=== PATIENT | male | born 1940 | race Caucasian/White ===

== ENCOUNTER → 2018-04-05 09:28 | Outpatient (CLI) | payer MEDICARE, SELFPAY ==
[2018-03-24 16:57] VITALS: TEMP 36.3
== END ==
PROVIDERS: Family Provider Family Medicine; PCP Family Medicine; Visit Provider Family Medicine
DX: R91.8 Other nonspecific abnormal finding of lung field (principal); Z53.9 Procedure and treatment not carried out, unspecified reason

== ENCOUNTER → 2018-04-12 12:33 | Outpatient (CLI) | payer MEDICARE, SELFPAY ==
[2018-03-24 16:57] VITALS: TEMP 36.3
--- NOTE | 2018-04-12 | DI.ECHO.S_ITS ---
[facility] +---------+ : : [address] : : : : [id number] : : : : Phone: [phone]+ Echocardiogram Report + + :Name: CAITLYN FARAH Study Date: 04/12/2018 Height: 72 in : :[facility] Weight: 175 lb: : Gender: Male BSA: 2.0 m2 : :: 1940 Age: 77 yrs BP: 90/62 mmHg: :Reason For Study: Aortic valve stenosis : :Ordering Physician: Dr. Simms : :[place] Performed By: Faye Hill : :Referring: Haven Mar : + + Interpretation Summary The left ventricle is normal in size. The ejection fraction is estimated to be 65-70%. The right ventricle is grossly normal size. The right ventricular systolic function is normal. The aortic valve is moderately calcified. Leaflet mobility is moderate to severely reduced. The peak aortic velocity is 3.7 m/sec. The aortic valve mean gradient is 25 mmHg. The peak aortic velocity on the previous exam was 3.2 m/sec. Severity ratio is 0.28. The calculated aortic valve area is 1.0 cm2. There is moderate to severe aortic stenosis. Compared to the prior echo study, there has been an increase in the severity of aortic stenosis. Procedure: A two-dimensional transthoracic echocardiogram with color flow and Doppler was performed. The study quality was technically adequate. Comparison is made with the echocardiogram of 12-30-17. The heart rate ranged between 89-92 bpm during the study. The patient had frequent PVCs during the exam. Left Ventricle: The left ventricle is normal in size. There is normal left ventricular wall thickness. There is no thrombus. The ejection fraction is estimated to be 65-70%. There has been no significant change since the previous study. There are no focal wall motion abnormalities. Assessment of diastolic parameters indicates a relaxation abnormality of the left ventricle, consistent with normal filling pressures. Right Ventricle: The right ventricle is grossly normal size. The right ventricular systolic function is normal. Atria: The left atrium is mildly dilated. The left atrium has remained unchanged in size since the prior echo exam. The right atrium grossly appears normal in size. A prominent eustachian valve is noted. The interatrial septum is intact with no evidence for an atrial septal defect. Mitral Valve: There is mild mitral annular calcification. No significant mitral valve stenosis. There is trace mitral regurgitation. Aortic Valve: The aortic valve is moderately calcified. The aortic valve is not well visualized. Leaflet mobility is moderate to severely reduced. The calculated aortic valve area is 1.0 cm2. The peak aortic velocity is 3.7 m/sec. The peak aortic velocity on the previous exam was 3.2 m/sec. The aortic valve mean gradient is 25 mmHg. Severity ratio is 0.28. There is moderate to severe aortic stenosis. Compared to the prior echo study, there has been an increase in the severity of aortic stenosis. There is trace aortic regurgitation. Tricuspid Valve: The tricuspid valve leaflets are thin and pliable. There is trace tricuspid regurgitation. The right ventricular systolic pressure is estimated at 25 mmHg assuming a right atrial pressure of 3 mm Hg. Pulmonic Valve: The pulmonic valve is not well seen, but is grossly normal. There is trace pulmonic regurgitation. Great Vessels: The aortic root is normal size. There is aortic root sclerosis/calcification. The ascending aorta is at the upper limits of normal in size. The IVC is of normal diameter and collapses greater than 50% with a sniff. This suggests a low right atrial pressure of 3 mm Hg. Pericardium/ Pleura There is no pericardial effusion. There is no pleural effusion. MMode/2D Measurements & Calculations LVIDd: 3.9 cm LVOT diam: 2.2 cm LVIDs: 2.8 cm Ao root diam: 3.5 cm FS: 27.9 % Aortic Jxn: 2.4 cm IVSd: 0.81 cm asc Aorta Diam: 3.6 cm LVPWd: 0.75 cm Ao Arch Diam (Prox Trans): 2.6 cm LV tyler. diameter/BSA (cm/m^2): 1.9 LV sys. diameter/BSA (cm/m^2): 1.4 LA dimension: 3.4 cm RA long axis: 5.6 cm LA A2 area: 22.9 cm2 RA area: 20.3 cm2 LA A4 area: 21.6 cm2 RA vol: 62.8 ml LA length (vol): 5.6 cm RA : 31.2 ml/m2 LA vol: 75.2 ml IVC diam: 1.0 cm LA vol index: 37.4 ml/m2 RVDd major: 4.8 cm RVD1 (basal): 4.1 cm RVD2 (mid): 3.0 cm Doppler Measurements & Calculations Ao V2 max: 374.4 cm/sec LVOT Max Rahul: 98.9 cm/sec Ao V2 mean: 250.8 cm/sec LV V1 max P.9 mmHg Ao max P.1 mmHg LV V1 VTI: 21.8 cm Ao mean P.1 mmHg SIVA(I,D): 1.0 cm2 Ao V2 VTI: 76.5 cm SIVA(V,D): 0.97 cm2 sev ratio: 0.28 SIVA indexed to BSA (cm^2/m^2): 0.52 MV E max rahul: 60.8 cm/sec TR max rahul: 234.6 cm/sec MV A max rahul: 103.7 cm/sec TR max P.0 mmHg MV E/A: 0.59 PA V2 max: 114.9 cm/sec Med Peak E' Rahul: 7.7 cm/sec PA V2 mean: 84.4 cm/sec E/E' med: 7.9 PA mean P.1 mmHg Lat Peak E' Rahul: 8.1 cm/sec PA Accel Time: 0.17 sec E/E' lat: 7.5 E/e' average: 7.7 MV dec time: 0.35 sec MV P1/2t: 103.2 msec MV P1/2t max rahul: 61.7 cm/sec MVA(P1/2t): 2.1 cm2 Reading Physician:PM
== END ==
PROVIDERS: Family Provider Family Medicine; PCP Family Medicine; Visit Provider Family Medicine
DX: I35.0 Nonrheumatic aortic (valve) stenosis (principal)
CPT/HCPCS: 93306

== ENCOUNTER → 2018-04-15 08:17 | Outpatient (CLI) | payer MEDICARE, SELFPAY ==
[2018-04-15 10:13] LABS: Cortisol AM (Before 10AM) 11.9 ug/dL (4.46-22.7)
== END ==
PROVIDERS: PCP Family Medicine; Visit Provider Internal Medicine Cardiovascular Disease
DX: I95.89 Other hypotension (principal)
CPT/HCPCS: 36415; 82533

== ENCOUNTER → 2018-05-03 10:06 | Outpatient (CLI) | payer MEDICARE, SELFPAY ==
[2018-05-03 11:13] LABS: Add Manual Diff / Slide Review NO; Basophils Percent Auto 1.1 % (0-2); Hematocrit 39.4 % (41-53); Hemoglobin 13.6 g/dL (13.5-17.5); Lymphocytes Percent Auto 26.3 % (25-40); Mean Corpuscular HGB Conc 34.4 % (30-36); Mean Corpuscular Hemoglobin 34.6 PG (26-34); Mean Corpuscular Volume 100.5 fL (80-100); Monocytes Percent Auto 13.7 % (3-14); Neutrophils Absolute Auto 3800 /uL (3000-5900); Neutrophils Percent Auto 56.9 % (50-75); Platelet Count 332 X10^3/uL (150-400); Red Blood Cell Count 3.92 X10^6/uL (4.5-5.9); Red Cell Distribution Width 15.4 % (11.6-14.8); White Blood Cell Count 6.7 X10^3/uL (4.5-11.0)
[2018-05-03 12:17] LABS: Alanine Aminotransferase 27 IU/L (21-72); Albumin Globulin Ratio 1.3 (1.0-2.8); Alkaline Phosphatase 172 U/L (38-126); Aspartate Aminotransferase 28 IU/L (17-59); Bilirubin Total 0.9 mg/dL (0.2-1.3); Blood Urea Nitrogen 9 mg/dL (9-20); Calcium 9.4 mg/dL (8.4-10.2); Carbon Dioxide 27 mmol/L (22-32); Chloride 98 mmol/L (98-107); Estimated Glomerular Filt Rate > 60.0 mL/min (>60); Globulin 3.2 g/dL (1.7-4.1); Glucose 115 mg/dL (80-110); HEMOLYSIS < 15 (0-50); Lactate Dehydrogenase 373 U/L (313-618); Sodium 138 mmol/L (137-145); Total Protein 7.2 g/dL (6.3-8.2)
[2018-05-03 12:18] LABS: Potassium 4.4 mmol/L (3.4-5.1)
== END ==
PROVIDERS: PCP Family Medicine; Visit Provider Internal Medicine Hematology & Oncology
DX: Z01.818 Encounter for other preprocedural examination (principal)
CPT/HCPCS: 36415; 80053; 83615; 85025

== ENCOUNTER → 2018-05-04 14:23 | Outpatient (CLI) | payer MEDICARE, SELFPAY ==
--- NOTE | 2018-05-04 14:28 | DI.CT.S_ITS ---
PROCEDURE: CT CHEST ABD PEL W CON INDICATIONS: staging for small cell lung cancer TECHNIQUE: After the administration of oral and intravenous contrast, 5 mm thick sections acquired from the lung apices to the symphysis. 5 mm coronal and sagittal reformats were performed, with additional 7 mm coronal MIP reformats through the lungs. For radiation dose reduction, the following was used: automated exposure control, adjustment of mA and/or kV according to patient size. COMPARISON: [facility], CT, CT BIOPSY LUNG LT, 04/05/2018, 10:56. [facility], CR, CHEST 1 VIEW, 11/06/2016, 14:06. [facility], CR, CHEST 1 VIEW, 05/13/2017, 20:49. [facility], CR, CHEST 1 VIEW, 05/17/2017, 10:06. [facility], CR, XR CHEST 1V, 03/24/2018, 17:20. [facility], CT, ANGIO AORTA ILIOFEM AND EXT, 10/23/2017, 13:50. FINDINGS: Image quality: Excellent. CHEST: Lungs and pleura: The lobulated mass within the medial left lower lobe is redemonstrated similar in size to the CT dated 04/05/18. No other pulmonary nodules are visualized. No acute airspace opacities. No pleural effusion or pneumothorax. Mediastinum: Heart size is normal. No pericardial effusion. No mediastinal or hilar adenopathy by size criteria. Thoracic aorta and central pulmonary arteries are normal in size. Scattered atheromatous calcifications are present within the aortic arch. Esophagus is normal in caliber. No hiatal hernia. Chest wall: No axillary or supraclavicular adenopathy by size criteria. Thyroid gland is unremarkable. ABDOMEN: Solid organs: Liver is normal in size and enhancement. Gallbladder is surgically absent. Pneumobilia is redemonstrated, unchanged from the study dated 10/23/17. The tail of the pancreas enhances normally. The head of the pancreas is nonvisualized and may be surgically absent. Spleen is normal in size and enhancement. No adrenal nodules. There is cortical thinning of the bilateral kidneys. No hydronephrosis. Multifocal cortical scarring is also present suggesting prior infection or infarct. Peritoneum and bowel: Patient is status post gastric antrectomy. Bowel loops demonstrate normal wall thickness and caliber. No free fluid or air. Nodes and vessels: There is a left-sided retroperitoneal lymph node which measures 8 mm in diameter (series 2, image 70). No other retroperitoneal or mesenteric adenopathy by size criteria. Aorta and inferior vena cava are normal in size. Dense atheromatous calcifications are present throughout the abdominal aorta, iliac and common femoral arteries. Miscellaneous: No ventral hernias. PELVIS: Genitourinary: Bladder wall thickness is normal. Miscellaneous: No inguinal adenopathy. There are small bilateral fat-containing inguinal hernias. Bones: No suspicious bony lesions. There are multiple chronic appearing wedge compression deformities within the thoracolumbar spine. IMPRESSION: 1. Lobulated left lower lobe pulmonary mass consistent with the given diagnosis of lung cancer. No new pulmonary metastasis or mediastinal or hilar adenopathy. 2. Solitary, borderline enlarged retroperitoneal lymph node. Although this may represent a alban metastasis, given the absence of other enlarged lymph nodes, inflammatory or infectious etiologies are favored. No other findings to suggest distant metastasis. 3. Findings most consistent with prior Whipple procedure including pneumobilia which is unchanged. Dictated by: Amara Lindo M.D. on 05/04/2018 at 15:57 Approved by: Amara Lindo M.D. on 05/04/2018 at 16:14
--- NOTE | 2018-05-04 14:28 | DI.MRI.S_ITS ---
PROCEDURE: MR HEAD/BRAIN WO/W CON INDICATIONS: LUNG CANCER TECHNIQUE: Noncontrast axial T1 spin echo, axial T2 fast spin echo, sagittal and axial FLAIR, coronal T2 fast spin echo, axial gradient echo, axial diffusion and ADC through the brain. After the administration of contrast, axial and coronal 3D VIBE or T1 spin echo with fat saturation through the brain. COMPARISON: None. FINDINGS: Image quality: Excellent. CSF Spaces: Basal cisterns are patent. No extra-axial fluid collections. Ventricles are normal in size and shape. Brain: No midline shift. No intracranial bleeds or masses. No abnormal intracranial enhancement. The brainstem appears normal. Diffusion-weighted images demonstrate no acute ischemic insults. No chronic ischemic insults. Normal intravascular flow voids are present. Skull and face: Calvarial marrow is normal in signal. Orbits appear normal. Sinuses: Sinuses and mastoids appear clear. IMPRESSION: No sign of metastatic disease. Normal for age. Dictated by: Broderick Porras M.D. on 05/04/2018 at 17:02 Approved by: Broderick Porras M.D. on 05/04/2018 at 17:03
== END ==
PROVIDERS: Family Provider Family Medicine; PCP Family Medicine; Visit Provider Internal Medicine Hematology & Oncology
DX: C34.32 Malignant neoplasm of lower lobe, left bronchus or lung (principal); Z87.891 Personal history of nicotine dependence
CPT/HCPCS: 70553; 71260; 74177; A9579; Q9967

== ENCOUNTER → 2018-05-05 12:47 | Outpatient (CLI) | payer MEDICARE, SELFPAY ==
--- NOTE | 2018-05-05 17:04 | DIET.PN ---
Met w/pt and for consultation on nutrition concerns w/cancer treatment Pt recently dx w/lung cancer that may have metastasized; awaiting test results. Has a consult for pending radiation tx tomorrow. Thinks he will also have chemotherapy. When asked pt states wt is stable; disagrees to which pt responds, it's only gone down a little because my mouth hurt USUAL PO INTAKE: 2 meals w/dinner being main meal; small breakfast; eats a lot of fruit midday. Snacks in ghazala, usually ice cream. Reports intake decreased recently r/t oral yeast infection X couple month. DX: lung Ca HX: Aortic stenosis w/high B/P MEDS INCLUDE: Centrum silver, fish oil, B12, calcium, vit D WT: 167# BMI: 22 UBW: 174# WT CHANGE: 7 # loss X 1mo for 4% change ASSESSMENT: appears very concerned; pt appears to minimize problems/symptoms. Current PO intake appears well balanced though less than usual w/resulting w/loss INTERVENTION: Provided education on potential side effects of cancer treatment and strategies for dealing with, including N/V, dry mouth, difficulty swallowing, diminished appetite, wt loss. Stressed importance of monitoring wt and aiming to maintain. No f/u planned at this time but pt/ may call w/further questions
== END ==
PROVIDERS: Family Provider Family Medicine; PCP Family Medicine; Visit Provider Internal Medicine Hematology & Oncology
DX: C34.90 Malignant neoplasm of unspecified part of unspecified bronchus or lung (principal)
CPT/HCPCS: 97802

== ENCOUNTER → 2018-05-17 10:23 | Outpatient (CLI) | payer MEDICARE, SELFPAY ==
--- NOTE | 2018-05-17 | DI.RAD.S_ITS ---
PROCEDURE: FL GUIDED PICC PLACEMENT INDICATIONS: 77 year-old male with lung cancer, and PICC placement. COMPARISON: None. FINDINGS: PICC was placed by the intravenous therapy team from the left side. Fluoroscopic spot film demonstrates tip of PICC in the upper superior vena cava. IMPRESSION: Tip of PICC lies within the upper superior vena cava. Dictated by: Fred Coon M.D. on 05/17/2018 at 12:01 Approved by: Fred Coon M.D. on 05/17/2018 at 12:01
== END ==
PROVIDERS: Family Provider Family Medicine; PCP Family Medicine; Visit Provider Internal Medicine Hematology & Oncology
DX: C34.90 Malignant neoplasm of unspecified part of unspecified bronchus or lung (principal)
CPT/HCPCS: 36569; 77001

== ENCOUNTER → 2018-05-27 14:30 | Oncology outpatient (ONC) | payer MEDICARE, SELFPAY ==
[2018-04-28 09:43] VITALS: BP 136/86; PULSE 81; RESP 16; TEMP 36.7; O2SAT 98
--- NOTE | 2018-04-28 13:25 | ONC.CONS ---
History of Present Illness - Data of Consult Primary Care Provider: Mendez Cuevas MD - Consult Narrative Narrative: Andrew Alexander is a 77 year old male HEMATOLOGY/ONCOLOGY CONSULTATION NOTE DATE OF SERVICE: APRIL 28, 2018 PATIENT NAME: Andrew Alexander DATE OF : 1940 PCP: Mendez Cuevas MD IDENTIFICATION: Mr. Alexander is a 77-year-old gentleman who is seen in consultation at the request of Dr. Cuevas for left lower lobe lung mass with CT-guided biopsy on April 05, 2018 showing small cell carcinoma the lung. HISTORY OF PRESENT ILLNESS: He presents to clinic today accompanied by his , Lizzette. He was born and raised in [place] , retiring from work at the [employer]. Former smoker from about age 19 until his late 50s, averaging about a pack per day. No recent alcohol consumption but previously consumed about 1 beer per day on average. Heavier some years in the past. He was recently seen at [facility] ED for shortness of breath and a chest x-ray was obtained on March showing a 4 cm left lower lobe lung mass. On April 05, [address]-guided biopsy of the left lower lung mass which showed a 4 cm mass in the left lower lobe with no additional pulmonary nodules or adenopathy reported. Biopsy ([id number]) shows: High-grade neuroendocrine (small cell) carcinoma. Immunohistochemistry studies showed the tumor to be positive for cytokeratin STEVENSON, cytokeratin 7, TTF 1 and CD 56 with rare positive cells for P 40. Negative for cytokeratin 20, Napsin-a, chromogranin, synaptophysin, CK 5/6, PSA and ERG. He currently denies any chest pain or significant discomfort, productive cough or hemoptysis. Breathing is stable and similar to previous months. He does note some lower back pain he has had for the past 3 or 4 months but typically gets prompt relief with mechanical readjustment from his chiropractor. He otherwise denies any new or progressive bone pain. No headaches or new neurologic symptoms, fever, chills, nausea or abdominal pain. CC: Zachariah Chase MD Home Medications and Allergies Home Medications Medication Instructions Recorded Confirmed Type Calcium Carbonate/Vitamin D 1 tab PO QDAY #0 07/25/11 04/28/18 History (#CALCIUM W/VITAMIN D 600 MG-125 IU) MULTIVITAMIN (#MULTIPLE VITAMINS) 1 cap PO QDAYP #0 09/12/11 04/28/18 History cyanocobalamin (vitamin B-12) 3,000 mcg PO QAM #0 08/26/16 04/28/18 History aspirin 325 mg PO QDAY #0 07/29/17 04/28/18 History atorvastatin 60 mg PO HS #45 tab 10/29/17 04/28/18 Rx pantoprazole [Protonix] 40 mg PO QDAY #90 mg 11/20/17 04/28/18 Rx metoprolol succinate [Toprol XL] 25 mg PO QDAY 04/28/18 04/28/18 History Allergies Allergy/AdvReac Type Severity Reaction Status Date / Time morphine [MORPHINE] Allergy Severe HALLUCINATI Verified 03/24/18 17:02 ONS thimerosal [THIMEROSAL] Allergy Mild PANCHAL Verified 03/24/18 17:02 ketamine [KETAMINE] AdvReac Unknown BECAME Verified 03/24/18 17:02 ANGRY; YELLING AT ER STAFF AND DOESN'T REMEMBER. Medical History - Medical, Surgical, Family History Surgical History: Surgical History (Last Reviewed 03/30/18 @ 08:24 by Estella Harper) Status post cholecystectomy Status post laminectomy Status post radical cystoprostatectomy - Social History Smoking Status: Former smoker Review of Systems All systems PM: reviewed and no additional remarkable complaints except as stated Constitutional: fair state of general health, normal activity level, normal sleep, no weight loss Eyes: no change in vision, no double vision, no pain, no swelling Ears, nose, mouth, throat: no headaches, no vertigo, no lightheadedness, no epistaxis, no dental problems Cardiovascular: heart murmur, no chest pain, no palpitations, no dyspnea on exertion, no orthopnea, no cyanosis Respiratory: no pain with respirations, no shortness of breath, no wheezing, no cough, no hemoptysis Gastrointestinal: no change in appetite, no dysphagia, no indigestion, no abdominal pain, no nausea, no vomiting, no hematemesis, no jaundice Genitourinary: no urgency, no frequency, no dysuria, no hematuria Musculoskeletal: no pain, no swelling, no redness Integumentary: no rash, no bleeding or bruising Neurological: no seizures, no incoordination, no memory loss, no speech disturbance, no motor difficulty Psychiatric: anxiety Exam Vital signs: Last Vital Signs Temp 98.0 F 04/28/18 09:43 Pulse 81 04/28/18 09:43 Resp 16 04/28/18 09:43 BP 136/86 H 04/28/18 09:43 Pulse Ox 98 04/28/18 09:43 - Constitutional positive no acute distress, positive cooperative - Routine HEENT Exam Head: Present: normocephalic, atraumatic. Absent: cushingoid faces Eye: Present: EOMI, PERRL. Absent: conjunctival icterus, periorbital ecchymosis, periorbital swelling, nystagmus ENT: Present: mucous membranes moist, oropharynx clear - Routine Neck Exam Present: supple. Absent: JVD, lymphadenopathy - Routine Chest/Breast/Axilla Exam Axillae: Absent: lymphadenopathy - Routine Respiratory Exam Present: Clear to auscultation bilaterally. Absent: decreased breath sounds, accessory muscle use, rales, wheezes - Routine Cardiovascular Exam Present: RRR, S1, S2, murmur. Absent: S3 Comments: 3/6 systolic murmur along the sternal border. - Routine Abdominal Exam Present: soft, normoactive bowel sounds. Absent: tenderness, distended, guarding, organomegaly - Routine Extremities Exam Present: clubbing. Absent: cyanosis, edema - Routine Skin Exam Present: intact. Absent: jaundice, rash, ecchymosis - Routine Neurological Exam Present: alert, oriented X3, CN II-XII intact, sensory deficit, moving all extremities. Absent: motor deficit Slight decreased sensation over the toes on the right foot. Gait is steady without overt ataxia. Able to walk on toes and heels reasonably well. Some difficulty with tandem gait. - Routine Psychiatric Exam Present: normal affect, normal thought process, cooperative, anxious Results - Imaging Additional studies: Procedures Contrast myelogram (10/10/13) Insertion of intraocular lens prosthesis at time of cataract extraction, one-stage (01/03/15) Intraoperative cholangiogram (07/29/11) Laparoscopic cholecystectomy (07/29/11) Phacoemulsification and aspiration of cataract (01/03/15) Transfusion of Nonautologous Red Blood Cells into Peripheral Vein, Percutaneous Approach (05/22/17) Assessment and Plan - Time Spent with Patient IMPRESSION: 1. SMALL CELL CARCINOMA OF THE LUNG, DIAGNOSED WITH CT-GUIDED BIOPSY OF LEFT LOWER LOBE MASS ON APRIL 05, 2018. 2. HISTORY OF TOBACCO USE. 3. AORTIC STENOSIS. 4. PERIPHERAL VASCULAR DISEASE. 5. HISTORY OF PROSTATE CANCER STATUS POST PROSTATECTOMY [address] PALOMO. DOES NOT RECALL RECEIVING HORMONE THERAPY OR RADIATION TREATMENT. 6. PANCREATITIS, STATUS POST PARTIAL PANCREATECTOMY AT [facility] IN 2011. I REVIEWED THE DIAGNOSIS, NATURAL HISTORY, PROGNOSIS AND TREATMENT FOR SMALL CELL CARCINOMA OF THE LUNG WITH HIM AND HIS AT TODAY'S VISIT. HE WILL NEED TO COMPLETE STAGING STUDIES AND FURTHER WORKUP BEFORE WE CAN FINALIZE TREATMENT PLAN. IF NO ADDITIONAL SITES OF DISEASE INVOLVEMENT ARE IDENTIFIED THEN I WOULD RECOMMEND TREATMENT WITH CONCURRENT CHEMORADIATION THERAPY UTILIZING CISPLATIN AND ETOPOSIDE. WE DID DISCUSS THE HIGH RISK FOR OCCULT METASTATIC DISEASE AND WILL PLAN TO SEE HIM BACK NEXT WEEK TO REVIEW RESULTS OF INITIAL STAGING STUDIES. FURTHER IMAGING INCLUDING BONE SCAN IF INDICATED. NO NEW SYMPTOMS CURRENTLY. REVIEWED OTHER ISSUES, QUESTIONS AND CLINICAL CONCERNS. PLAN: 1. CBC, CMP, LDH 2. CT CHEST/ABDOMEN/PELVIS 3. MRI HEAD WITH CONTRAST 4. REFERRAL TO RADIATION ONCOLOGY TO CONSIDER CONCURRENT CHEMORADIATION THERAPY PENDING STAGING. 5. REFERRALS TO [facility] [employer] [facility] TODAY. 6. PRINTED INFORMATION ABOUT SMALL CELL LUNG CANCER TREATMENT PROVIDED TO HIM AND HIS . 7. RETURN APPOINTMENT WITH ME IN 1 WEEK. 8. ANTICIPATE TREATMENT WITH CISPLATIN AND ETOPOSIDE PENDING RESULTS OF STAGING STUDIES. DICTATED BY ZACHARIAH CHASE MD MEDICAL ONCOLOGY AND HEMATOLOGY
--- NOTE | 2018-04-28 13:37 | P.CONONC_ITS ---
History of Present Illness - Data of Consult Primary Care Provider: Mendez Cuevas MD - Consult Narrative Narrative: Andrew Alexander is a 77 year old male HEMATOLOGY/ONCOLOGY CONSULTATION NOTE DATE OF SERVICE: APRIL 28, 2018 PATIENT NAME: Andrew Alexander DATE OF : 1940 PCP: Mendez Cuevas MD IDENTIFICATION: Mr. Alexander is a 77-year-old gentleman who is seen in consultation at the request of Dr. Cuevas for left lower lobe lung mass with CT- guided biopsy on April 05, 2018 showing small cell carcinoma the lung. HISTORY OF PRESENT ILLNESS: He presents to clinic today accompanied by his , Lizzette. He was born and raised in [place] , retiring from work at the [employer]. Former smoker from about age 19 until his late 50s, averaging about a pack per day. No recent alcohol consumption but previously consumed about 1 beer per day on average. Heavier some years in the past. He was recently seen at [facility] ED for shortness of breath and a chest x-ray was obtained on March showing a 4 cm left lower lobe lung mass. On April 05, [address]-guided biopsy of the left lower lung mass which showed a 4 cm mass in the left lower lobe with no additional pulmonary nodules or adenopathy reported. Biopsy ([id number]) shows: High-grade neuroendocrine (small cell) carcinoma. Immunohistochemistry studies showed the tumor to be positive for cytokeratin STEVENSON, cytokeratin 7, TTF 1 and CD 56 with rare positive cells for P 40. Negative for cytokeratin 20, Napsin-a, chromogranin, synaptophysin, CK 5/ 6, PSA and ERG. He currently denies any chest pain or significant discomfort, productive cough or hemoptysis. Breathing is stable and similar to previous months. He does note some lower back pain he has had for the past 3 or 4 months but typically gets prompt relief with mechanical readjustment from his chiropractor. He otherwise denies any new or progressive bone pain. No headaches or new neurologic symptoms, fever, chills, nausea or abdominal pain. CC: Zachariah Chase MD Home Medications and Allergies Home Medications Medication Instructions Recorded Confirmed Type Calcium Carbonate/Vitamin D 1 tab PO QDAY #0 07/25/11 04/28/18 History (#CALCIUM W/VITAMIN D 600 MG-125 IU) MULTIVITAMIN (#MULTIPLE VITAMINS) 1 cap PO QDAYP #0 09/12/11 04/28/18 History cyanocobalamin (vitamin B-12) 3,000 mcg PO QAM #0 08/26/16 04/28/18 History aspirin 325 mg PO QDAY #0 07/29/17 04/28/18 History atorvastatin 60 mg PO HS #45 tab 10/29/17 04/28/18 Rx pantoprazole [Protonix] 40 mg PO QDAY #90 mg 11/20/17 04/28/18 Rx metoprolol succinate [Toprol XL] 25 mg PO QDAY 04/28/18 04/28/18 History Allergies Allergy/AdvReac Type Severity Reaction Status Date / Time morphine [MORPHINE] Allergy Severe HALLUCINATI Verified 03/24/18 17:02 ONS thimerosal [THIMEROSAL] Allergy Mild PANCHAL Verified 03/24/18 17:02 ketamine [KETAMINE] AdvReac Unknown BECAME Verified 03/24/18 17:02 ANGRY; YELLING AT ER STAFF AND DOESN'T REMEMBER. Medical History - Medical, Surgical, Family History Surgical History: Surgical History (Last Reviewed 03/30/18 @ 08:24 by Estella Harper) Status post cholecystectomy Status post laminectomy Status post radical cystoprostatectomy - Social History Smoking Status: Former smoker Review of Systems All systems PM: reviewed and no additional remarkable complaints except as stated Constitutional: fair state of general health, normal activity level, normal sleep, no weight loss Eyes: no change in vision, no double vision, no pain, no swelling Ears, nose, mouth, throat: no headaches, no vertigo, no lightheadedness, no epistaxis, no dental problems Cardiovascular: heart murmur, no chest pain, no palpitations, no dyspnea on exertion, no orthopnea, no cyanosis Respiratory: no pain with respirations, no shortness of breath, no wheezing, no cough, no hemoptysis Gastrointestinal: no change in appetite, no dysphagia, no indigestion, no abdominal pain, no nausea, no vomiting, no hematemesis, no jaundice Genitourinary: no urgency, no frequency, no dysuria, no hematuria Musculoskeletal: no pain, no swelling, no redness Integumentary: no rash, no bleeding or bruising Neurological: no seizures, no incoordination, no memory loss, no speech disturbance, no motor difficulty Psychiatric: anxiety Exam Vital signs: Last Vital Signs Temp 98.0 F 04/28/18 09:43 Pulse 81 04/28/18 09:43 Resp 16 04/28/18 09:43 BP 136/86 H 04/28/18 09:43 Pulse Ox 98 04/28/18 09:43 - Constitutional positive no acute distress, positive cooperative - Routine HEENT Exam Head: Present: normocephalic, atraumatic. Absent: cushingoid faces Eye: Present: EOMI, PERRL. Absent: conjunctival icterus, periorbital ecchymosis , periorbital swelling, nystagmus ENT: Present: mucous membranes moist, oropharynx clear - Routine Neck Exam Present: supple. Absent: JVD, lymphadenopathy - Routine Chest/Breast/Axilla Exam Axillae: Absent: lymphadenopathy - Routine Respiratory Exam Present: Clear to auscultation bilaterally. Absent: decreased breath sounds, accessory muscle use, rales, wheezes - Routine Cardiovascular Exam Present: RRR, S1, S2, murmur. Absent: S3 Comments: 3/6 systolic murmur along the sternal border. - Routine Abdominal Exam Present: soft, normoactive bowel sounds. Absent: tenderness, distended, guarding, organomegaly - Routine Extremities Exam Present: clubbing. Absent: cyanosis, edema - Routine Skin Exam Present: intact. Absent: jaundice, rash, ecchymosis - Routine Neurological Exam Present: alert, oriented X3, CN II-XII intact, sensory deficit, moving all extremities. Absent: motor deficit Slight decreased sensation over the toes on the right foot. Gait is steady without overt ataxia. Able to walk on toes and heels reasonably well. Some difficulty with tandem gait. - Routine Psychiatric Exam Present: normal affect, normal thought process, cooperative, anxious Results - Imaging Additional studies: Procedures Contrast myelogram (10/10/13) Insertion of intraocular lens prosthesis at time of cataract extraction, one- stage (01/03/15) Intraoperative cholangiogram (07/29/11) Laparoscopic cholecystectomy (07/29/11) Phacoemulsification and aspiration of cataract (01/03/15) Transfusion of Nonautologous Red Blood Cells into Peripheral Vein, Percutaneous Approach (05/22/17) Assessment and Plan - Time Spent with Patient IMPRESSION: 1. SMALL CELL CARCINOMA OF THE LUNG, DIAGNOSED WITH CT-GUIDED BIOPSY OF LEFT LOWER LOBE MASS ON APRIL 05, 2018. 2. HISTORY OF TOBACCO USE. 3. AORTIC STENOSIS. 4. PERIPHERAL VASCULAR DISEASE. 5. HISTORY OF PROSTATE CANCER STATUS POST PROSTATECTOMY [address] PALOMO. DOES NOT RECALL RECEIVING HORMONE THERAPY OR RADIATION TREATMENT. 6. PANCREATITIS, STATUS POST PARTIAL PANCREATECTOMY AT [facility] IN 2011. I REVIEWED THE DIAGNOSIS, NATURAL HISTORY, PROGNOSIS AND TREATMENT FOR SMALL CELL CARCINOMA OF THE LUNG WITH HIM AND HIS AT TODAY'S VISIT. HE WILL NEED TO COMPLETE STAGING STUDIES AND FURTHER WORKUP BEFORE WE CAN FINALIZE TREATMENT PLAN. IF NO ADDITIONAL SITES OF DISEASE INVOLVEMENT ARE IDENTIFIED THEN I WOULD RECOMMEND TREATMENT WITH CONCURRENT CHEMORADIATION THERAPY UTILIZING CISPLATIN AND ETOPOSIDE. WE DID DISCUSS THE HIGH RISK FOR OCCULT METASTATIC DISEASE AND WILL PLAN TO SEE HIM BACK NEXT WEEK TO REVIEW RESULTS OF INITIAL STAGING STUDIES. FURTHER IMAGING INCLUDING BONE SCAN IF INDICATED. NO NEW SYMPTOMS CURRENTLY. REVIEWED OTHER ISSUES, QUESTIONS AND CLINICAL CONCERNS. PLAN: 1. CBC, CMP, LDH 2. CT CHEST/ABDOMEN/PELVIS 3. MRI HEAD WITH CONTRAST 4. REFERRAL TO RADIATION ONCOLOGY TO CONSIDER CONCURRENT CHEMORADIATION THERAPY PENDING STAGING. 5. REFERRALS TO [facility] AND [facility]OR ERP TODAY. 6. PRINTED INFORMATION ABOUT SMALL CELL LUNG CANCER TREATMENT PROVIDED TO HIM AND HIS . 7. RETURN APPOINTMENT WITH ME IN 1 WEEK. 8. ANTICIPATE TREATMENT WITH CISPLATIN AND ETOPOSIDE PENDING RESULTS OF STAGING STUDIES. DICTATED BY ZACHARIAH CHASE MD MEDICAL ONCOLOGY AND HEMATOLOGY
--- NOTE | 2018-05-12 12:32 | ONC.PN ---
Assessment and Plan - Time Spent with Patient IMPRESSION: 1. Small cell carcinoma of the lung, limited stage disease. CT-guided biopsy of left lower lobe mass on April 05, 2018. Staging with CT chest/abdomen/pelvis shows a single 0.8 cm retroperitoneal lymph node but no definite findings to suggest metastatic disease. MR brain shows no evidence of [employer] metastases. Consultation with Dr. Wilburn May 06, 2018. 2. History of tobacco use. 3. Aortic stenosis. 4. Peripheral vascular disease. 5. History of prostate cancer, status post prostatectomy [address] Perkins. 6. Urinary incontinence. 7. Pancreatitis, status post partial pancreatectomy at [facility] in 2011. I reviewed the findings, lab and CT and MRI imaging results with her nystatin his in detail today. Reviewed note and recommendations from Dr. Wilburn. We anticipate treatment for what appears to be limited stage small cell carcinoma of the lung. I advised him of the potential risk of occult metastatic disease. We reviewed side effects and potential toxicities for treatment with cisplatin and etoposide which include but are not limited to fatigue, nausea, vomiting, myelosuppression with potential neutropenia and risk for sepsis or , anemia potential need for transfusions, thrombocytopenia and risk for hemorrhage or stroke, thromboembolic complications including DVT, pulmonary embolus or stroke, phlebitis, neuropathy which may be permanent, nephropathy or renal failure from cisplatin, hypokalemia, hypomagnesemia, risk for seizure, fatigue, malaise, anorexia, weight loss, rash, headaches, mood changes, 2nd malignancies and other potential concerns. He voices understanding, accepts the side effects and risks discussed and consents to treatment as outlined. I have also reviewed treatment plan with our oncology pharmacist and triage nurse. Total time spent today 40 min with more than 50% of time spent in counseling and coordination of care. PLAN: 1. Orders for cycle 1 of cisplatin 80 milligram/meter sq IV day 1 and etoposide 100 milligram/meter sq IV days 1, 2, 3. Cycles 21 days x4 with concurrent radiation therapy planned. 2. Anticipate start of treatment on May 17, 2018. 3. Anticipate started radiation therapy with cycle 2 or as per recommendations from Dr. Wilburn. 4. Standard premedication, antiemetics and other supportive care reviewed. 5. Mouth rinses and neutropenic precautions. 6. Filgrastim support if indicated. Transfusion of RBCs or platelets if indicated. 7. CBC, CMP, magnesium, LDH on day 1 of each cycle. 8. CBC weekly, CMP and magnesium repeated on day 8 each cycle. 9. Return appointment with me day 8 of cycle 1 and on day 1 of each cycle of cisplatin/etoposide. 10. Prescriptions for prochlorperazine and ondansetron. Currently taking pantoprazole. 11. Follow-up with radiation oncology for simulation and treatment planning. DICTATED BY AGATA CHASE MD MEDICAL ONCOLOGY AND HEMATOLOGY PN -Subjective Interval history: IDENTIFICATION: Mr. Alexander is a 77-year-old gentleman with small cell carcinoma of the lung diagnosed with CT-guided biopsy of left lower lobe mass on April 05, 2018. INTERVAL HISTORY: He returns today with his to review treatment plan. Since his consultation visit he has had lab work, CT of the chest/abdomen/pelvis and MR of the brain. He was also seen in consultation by Dr. Wilburn in Radiation Oncology on May 06, 2018. He has also reviewed the imaging with the patient and has recommended proceeding with radiation therapy as discussed. He returns today to review staging studies and treatment plan. No new symptoms to report. He denies significant chest discomfort, productive cough or hemoptysis. No headaches or new neurologic symptoms. No nausea or vomiting. PRIOR NOTE: HISTORY OF PRESENT ILLNESS: He presents to clinic today accompanied by his , Lizzette. He was born and raised in [place] , retiring from work at the [employer]. Former smoker from about age 19 until his late 50s, averaging about a pack per day. No recent alcohol consumption but previously consumed about 1 beer per day on average. Heavier some years in the past. He was recently seen at [facility] ED for shortness of breath and a chest x-ray was obtained on March showing a 4 cm left lower lobe lung mass. On April 05, [address]-guided biopsy of the left lower lung mass which showed a 4 cm mass in the left lower lobe with no additional pulmonary nodules or adenopathy reported. Biopsy ([id number]) shows: High-grade neuroendocrine (small cell) carcinoma. Immunohistochemistry studies showed the tumor to be positive for cytokeratin STEVENSON, cytokeratin 7, TTF 1 and CD 56 with rare positive cells for P 40. Negative for cytokeratin 20, Napsin-a, chromogranin, synaptophysin, CK 5/6, PSA and ERG. He currently denies any chest pain or significant discomfort, productive cough or hemoptysis. Breathing is stable and similar to previous months. He does note some lower back pain he has had for the past 3 or 4 months but typically gets prompt relief with mechanical readjustment from his chiropractor. He otherwise denies any new or progressive bone pain. No headaches or new neurologic symptoms, fever, chills, nausea or abdominal pain. Results - Imaging Additional studies: Procedures Contrast myelogram (10/10/13) Insertion of intraocular lens prosthesis at time of cataract extraction, one-stage (01/03/15) Intraoperative cholangiogram (07/29/11) Laparoscopic cholecystectomy (07/29/11) Phacoemulsification and aspiration of cataract (01/03/15) Transfusion of Nonautologous Red Blood Cells into Peripheral Vein, Percutaneous Approach (05/22/17) Home Medications and Allergies Home Medications Medication Instructions Recorded Confirmed Type Calcium Carbonate/Vitamin D 1 tab PO QDAY #0 07/25/11 04/28/18 History (#CALCIUM W/VITAMIN D 600 MG-125 IU) multivitamin 1 tab PO DAILY #0 09/12/11 04/28/18 History cyanocobalamin (vitamin B-12) 3,000 mcg PO QAM #0 08/26/16 04/28/18 History aspirin 325 mg PO QDAY #0 07/29/17 04/28/18 History atorvastatin 60 mg PO HS #45 tab 10/29/17 04/28/18 Rx pantoprazole [Protonix] 40 mg PO QDAY #90 mg 11/20/17 04/28/18 Rx metoprolol succinate [Toprol XL] 25 mg PO QDAY 04/28/18 04/28/18 History clotrimazole 1 applic TOPICAL BID 05/12/18 05/12/18 History nystatin 200,000 unit BUCCAL QID 05/12/18 05/12/18 History Allergies Allergy/AdvReac Type Severity Reaction Status Date / Time morphine [MORPHINE] Allergy Severe HALLUCINATI Verified 03/24/18 17:02 ONS thimerosal [THIMEROSAL] Allergy Mild PANCHAL Verified 03/24/18 17:02 ketamine [KETAMINE] AdvReac Unknown BECAME Verified 03/24/18 17:02 ANGRY; YELLING AT ER STAFF AND DOESN'T REMEMBER. Exam Vital signs: Last Vital Signs Temp 98.0 F 04/28/18 09:43 Pulse 81 04/28/18 09:43 Resp 16 04/28/18 09:43 BP 136/86 H 04/28/18 09:43 Pulse Ox 98 04/28/18 09:43 - Constitutional positive no acute distress, positive cooperative - Routine HEENT Exam Head: Present: normocephalic, atraumatic Eye: Present: EOMI, PERRL - Routine Neurological Exam Present: alert, normal speech - Routine Psychiatric Exam Present: normal affect, normal thought process, cooperative
[2018-05-12 12:37] VITALS: BP 116/73; PULSE 90; RESP 16; TEMP 36.4; O2SAT 96
--- NOTE | 2018-05-12 12:39 | P.PNONC_ITS ---
Assessment and Plan - Time Spent with Patient IMPRESSION: 1. Small cell carcinoma of the lung, limited stage disease. CT-guided biopsy of left lower lobe mass on April 05, 2018. Staging with CT chest/abdomen/pelvis shows a single 0.8 cm retroperitoneal lymph node but no definite findings to suggest metastatic disease. MR brain shows no evidence of [employer] metastases. Consultation with Dr. Wilburn May 06, 2018. 2. History of tobacco use. 3. Aortic stenosis. 4. Peripheral vascular disease. 5. History of prostate cancer, status post prostatectomy [address] Perkins. 6. Urinary incontinence. 7. Pancreatitis, status post partial pancreatectomy at [facility] in 2011. I reviewed the findings, lab and CT and MRI imaging results with her nystatin his in detail today. Reviewed note and recommendations from Dr. Wilburn. We anticipate treatment for what appears to be limited stage small cell carcinoma of the lung. I advised him of the potential risk of occult metastatic disease. We reviewed side effects and potential toxicities for treatment with cisplatin and etoposide which include but are not limited to fatigue, nausea, vomiting, myelosuppression with potential neutropenia and risk for sepsis or , anemia potential need for transfusions, thrombocytopenia and risk for hemorrhage or stroke, thromboembolic complications including DVT, pulmonary embolus or stroke, phlebitis, neuropathy which may be permanent, nephropathy or renal failure from cisplatin, hypokalemia, hypomagnesemia, risk for seizure, fatigue, malaise, anorexia, weight loss, rash, headaches, mood changes, 2nd malignancies and other potential concerns. He voices understanding , accepts the side effects and risks discussed and consents to treatment as outlined. I have also reviewed treatment plan with our oncology pharmacist and triage nurse. Total time spent today 40 min with more than 50% of time spent in counseling and coordination of care. PLAN: 1. Orders for cycle 1 of cisplatin 80 milligram/meter sq IV day 1 and etoposide 100 milligram/meter sq IV days 1, 2, 3. Cycles 21 days x4 with concurrent radiation therapy planned. 2. Anticipate start of treatment on May 17, 2018. 3. Anticipate started radiation therapy with cycle 2 or as per recommendations from Dr. Wilburn. 4. Standard premedication, antiemetics and other supportive care reviewed. 5. Mouth rinses and neutropenic precautions. 6. Filgrastim support if indicated. Transfusion of RBCs or platelets if indicated. 7. CBC, CMP, magnesium, LDH on day 1 of each cycle. 8. CBC weekly, CMP and magnesium repeated on day 8 each cycle. 9. Return appointment with me day 8 of cycle 1 and on day 1 of each cycle of cisplatin/etoposide. 10. Prescriptions for prochlorperazine and ondansetron. Currently taking pantoprazole. 11. Follow-up with radiation oncology for simulation and treatment planning. DICTATED BY AGATA CHASE MD MEDICAL ONCOLOGY AND HEMATOLOGY PN -Subjective Interval history: IDENTIFICATION: Mr. Alexander is a 77-year-old gentleman with small cell carcinoma of the lung diagnosed with CT-guided biopsy of left lower lobe mass on April 05, 2018. INTERVAL HISTORY: He returns today with his to review treatment plan. Since his consultation visit he has had lab work, CT of the chest/abdomen/ pelvis and MR of the brain. He was also seen in consultation by Dr. Wilburn in Radiation Oncology on May 06, 2018. He has also reviewed the imaging with the patient and has recommended proceeding with radiation therapy as discussed. He returns today to review staging studies and treatment plan. No new symptoms to report. He denies significant chest discomfort, productive cough or hemoptysis. No headaches or new neurologic symptoms. No nausea or vomiting. PRIOR NOTE: HISTORY OF PRESENT ILLNESS: He presents to clinic today accompanied by his , Lizzette. He was born and raised in [place] , retiring from work at the [employer]. Former smoker from about age 19 until his late 50s, averaging about a pack per day. No recent alcohol consumption but previously consumed about 1 beer per day on average. Heavier some years in the past. He was recently seen at [facility] ED for shortness of breath and a chest x-ray was obtained on March showing a 4 cm left lower lobe lung mass. On April 05, [address]-guided biopsy of the left lower lung mass which showed a 4 cm mass in the left lower lobe with no additional pulmonary nodules or adenopathy reported. Biopsy ([id number]) shows: High-grade neuroendocrine (small cell) carcinoma. Immunohistochemistry studies showed the tumor to be positive for cytokeratin STEVENSON, cytokeratin 7, TTF 1 and CD 56 with rare positive cells for P 40. Negative for cytokeratin 20, Napsin-a, chromogranin, synaptophysin, CK 5/ 6, PSA and ERG. He currently denies any chest pain or significant discomfort, productive cough or hemoptysis. Breathing is stable and similar to previous months. He does note some lower back pain he has had for the past 3 or 4 months but typically gets prompt relief with mechanical readjustment from his chiropractor. He otherwise denies any new or progressive bone pain. No headaches or new neurologic symptoms, fever, chills, nausea or abdominal pain. Results - Imaging Additional studies: Procedures Contrast myelogram (10/10/13) Insertion of intraocular lens prosthesis at time of cataract extraction, one- stage (01/03/15) Intraoperative cholangiogram (07/29/11) Laparoscopic cholecystectomy (07/29/11) Phacoemulsification and aspiration of cataract (01/03/15) Transfusion of Nonautologous Red Blood Cells into Peripheral Vein, Percutaneous Approach (05/22/17) Home Medications and Allergies Home Medications Medication Instructions Recorded Confirmed Type Calcium Carbonate/Vitamin D 1 tab PO QDAY #0 07/25/11 04/28/18 History (#CALCIUM W/VITAMIN D 600 MG-125 IU) multivitamin 1 tab PO DAILY #0 09/12/11 04/28/18 History cyanocobalamin (vitamin B-12) 3,000 mcg PO QAM #0 08/26/16 04/28/18 History aspirin 325 mg PO QDAY #0 07/29/17 04/28/18 History atorvastatin 60 mg PO HS #45 tab 10/29/17 04/28/18 Rx pantoprazole [Protonix] 40 mg PO QDAY #90 mg 11/20/17 04/28/18 Rx metoprolol succinate [Toprol XL] 25 mg PO QDAY 04/28/18 04/28/18 History clotrimazole 1 applic TOPICAL BID 05/12/18 05/12/18 History nystatin 200,000 unit BUCCAL QID 05/12/18 05/12/18 History Allergies Allergy/AdvReac Type Severity Reaction Status Date / Time morphine [MORPHINE] Allergy Severe HALLUCINATI Verified 03/24/18 17:02 ONS thimerosal [THIMEROSAL] Allergy Mild PANCHAL Verified 03/24/18 17:02 ketamine [KETAMINE] AdvReac Unknown BECAME Verified 03/24/18 17:02 ANGRY; YELLING AT ER STAFF AND DOESN'T REMEMBER. Exam Vital signs: Last Vital Signs Temp 98.0 F 04/28/18 09:43 Pulse 81 04/28/18 09:43 Resp 16 04/28/18 09:43 BP 136/86 H 04/28/18 09:43 Pulse Ox 98 04/28/18 09:43 - Constitutional positive no acute distress, positive cooperative - Routine HEENT Exam Head: Present: normocephalic, atraumatic Eye: Present: EOMI, PERRL - Routine Neurological Exam Present: alert, normal speech - Routine Psychiatric Exam Present: normal affect, normal thought process, cooperative
--- NOTE | 2018-05-14 08:48 | P.CHEMO_ITS ---
Chemotherapy Counseling - History of present illness History of present illness: Andrew is a 77-year-old male who presents today for chemotherapy teaching. 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 CT-guided biopsy of left lower lobe mass on April 05, 2018. Staging CT of chest abdomen pelvis demonstrates a single 0.8 cm retroperitoneal lymph node but no definite findings to suggest metastatic disease. Brain MR demonstrated no evidence of DIAGNOSTIC TECH metastases. Plan is to initiate treatment in the form of cisplatin and etoposide with concurrent radiation therapy. Cisplatin day 1 etoposide day 1, 2, 3. Each cycle is 21 days plan to complete 4 cycles. Radiation therapy is predicted to begin cycle 2. At the outset of visit today Chan Rodriguez made me aware he is having significant issues with his mouth. He reports to me for several months he has been treated for a ?yeast infection? in his mouth by his dentist. He has been using nystatin swish and swallow also clotrimazole lozenge without any improvement in symptoms. Specifically he reports pain. Also some difficulty swallowing. He has been on a ?soft diet? for ?2 months now?. He has had some weight loss. He is very concerned about his mouth and is hoping we can help him. He has not had any oral infection like this in the past. Inspection of oral cavity today demonstrated a solitary white plaque-like lesion posterior dorsum, left side. Scraping did not elicit any bleeding. No other visible abnormalities noted. No other lesions, plaque, erythema, exudate. No palpable adenopathy. Phone call to local ENT Dr Mahamed Baker he was readily available I greatly appreciate his willingness to evaluate this patient. Pt has been seen in his clinic I believe in 2013 for hearing issues. - General New Chemotherapy Patient: Yes Treatment Plan Reviewed: yes - Chemotherapy Counseling Chemotherapy Counseling: Chemotherapy Education: Andrew Alexander provided written information on all topics discussed. Written materials printed from www.[facility].com and www.[facility].org. Andrew was given an overview of cancer and mechanism of action of cancer cells, that cancer is caused by cells that are dividing rapidly, and out of control. Traditional chemotherapy works by targeting the fast dividing cells and killing them. Chemotherapy affecting healthy cells dividing quickly causes many of the side effects (hair follicles, bone marrow, mucus membranes). Overview of blood cell functions of white cells to fight infection, red cells to carry oxygen, and platelets to stop bleeding was discussed, and that when bone marrow is affected by chemo, there is a decrease in production of these cells. Home care of the patient following chemotherapy was discussed. Body fluids will be contaminated for 48 hours following treatment, and any body fluids handled by caregivers should be handled wearing gloves, surfaces need to be cleaned with soap and water, any soiled linens or clothing need to be washed separately in hot water, toilet lid should be closed when flushing, person cleaning the toilet should wear gloves. How chemotherapy is administered by the RN?s in the clinic, that orders are double checked by pharmacy and checked again by two RN?s prior to administration. Nurses wear protective gear to prevent exposure to them of the chemotherapy agents which can also cause cancer. Cancer center information discussed and written hand out provided listing on- call oncologist available weekends and after hours triage R.N. hours and infusion room guide. New patient binder given to Andrew, which includes clinic names, phone numbers, clinic information, calendar, cancer glossary, and list of resources. Handout on advanced directives Common side effects of chemotherapy were discussed with self care tips for prevention of complications. Information also provided in writing. These included: Low blood counts (anemia, thrombocytopenia, neutropenia) Hair loss (alopecia) Nausea and vomiting Decreased appetite Loss of fertility Diarrhea Mouth sores Constipation Peripheral neuropathy Chemo brain/cognitive changes Fatigue Instructions on when to call your healthcare team or on-call physician immediately: Fever of 100.4 or higher, chills, any signs of infection Shortness of breath, wheezing, difficulty breathing, closing of throat, swelling of face, hives (signs of possible allergic reaction) Chest pain, fast heart beat or feelings of a different heart rhythm Swelling of an extremity with or without pain signs of stroke Instructions on when to call your healthcare team within the next 24 hours Nausea that interferes with ability to eat and unrelieved with prescribed medication Diarrhea (4-6 episodes in 24 hour period). Unusual bleeding or bruising Black or tarry stools, or blood in your stools Blood in the urine pain or burning with urination Extreme fatigue (unable to perform self-care activities) Mouth sores or sore areas in your mouth Bad headache Dizziness or lightheadedness Large weight gain over a short period of time General self-care tips while undergoing treatment discussed were as follows. Written materials were provided covering in detail and additional self care tips. Drink at least 2-3 quarts (8-10 glasses) of no-caffeinated beverages daily unless you are instructed otherwise and empty your bladder frequently Report any concerning symptoms to your healthcare team Avoid crowds and sick people, wash your hands frequently Use a soft bristled toothbrush, rinse three times a day with 1 tsp baking soda or 1 tsp salt mixed with warm water Avoid any mouthwashes or oral and skin products containing alcohol or fragrances Use electric razors to avoid cutting yourself Avoid contact sports or activities that could cause head injury or bleeding Avoid sun exposure, wear SPF 15 or higher, wear protective clothing Get plenty of rest, meter your activities Maintain good nutrition Avoid alcoholic beverages Attend your scheduled appointments and lab draws Treatment regimen reviewed and medications were discussed with attention to specific side effects and self care for the pt?s treatment regimen which includes [cisplatin and etoposide]. Andrew was provided with literature regarding [cisplatin and etoposide] and common side effects. Additionally, Andrew was provided with literature regarding the diagnosis of small cell lung cancer]. Andrew instructed to read literature at home. Keep a list of questions which we are happy to go over at future visits. For any urgent questions please feel free to call any time. - Response to Teaching Response to Teaching: Verbalizes Understanding - Referrals Other Referrals: ENT
[2018-05-14 13:23] VITALS: BP 122/80; PULSE 81; RESP 18; TEMP 36.1; O2SAT 97
--- NOTE | 2018-05-14 13:41 | PC.NURSE ---
Spoke with Nanci from [facility] regarding pts tx plan. Explained he will be receiving Cisplatin D1 and Etoposide days 1-3 q21 days. Pt will have radiation each day to include those days he receives treatment.
[2018-05-19 11:06] LABS: Add Manual Diff / Slide Review NO; Basophils Percent Auto 0.7 % (0-2); Eosinophils Percent Auto 1.2 % (2-4); Hematocrit 37.9 % (41-53); Hemoglobin 12.9 g/dL (13.5-17.5); Lymphocytes Percent Auto 17.7 % (25-40); Mean Corpuscular HGB Conc 33.9 % (30-36); Mean Corpuscular Hemoglobin 33.9 PG (26-34); Mean Corpuscular Volume 99.8 fL (80-100); Monocytes Percent Auto 12.2 % (3-14); Neutrophils Absolute Auto 5600 /uL (3000-5900); Neutrophils Percent Auto 68.2 % (50-75); Platelet Count 290 X10^3/uL (150-400); Red Blood Cell Count 3.79 X10^6/uL (4.5-5.9); Red Cell Distribution Width 15.8 % (11.6-14.8); White Blood Cell Count 8.2 X10^3/uL (4.5-11.0)
--- NOTE | 2018-05-19 11:06 | ONC.PN ---
Assessment and Plan - Time Spent with Patient IMPRESSION: 1. Small cell carcinoma of the lung, limited stage disease. CT-guided biopsy of left lower lobe mass on April 05, 2018. Staging with CT chest/abdomen/pelvis shows a single 0.8 cm retroperitoneal lymph node but no definite findings to suggest metastatic disease. MR brain shows no evidence of SERVICES DELIVERY DRIVER metastases. Consultation with Dr. Wilburn May 06, 2018. 2. History of tobacco use 3. Aortic stenosis 4. Peripheral vascular disease 5. History of prostate cancer, status [place] [address] Perkins. 6. Oral leukoplakia. Biopsies taken. 7. Urinary incontinence. 8. 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 He returns today ready to begin chemotherapy treatment with cisplatin and etoposide. He received his 1st treatment with radiation therapy earlier this morning. We reviewed the treatment plan, side effects and potential toxicities, treatment schedule, logistics and related issues and concerns. He and his are comfortable with the plan. He has no further questions at this time. I encouraged him to monitor for fever, chills, bleeding, rash or any other concerns and call back as needed. We will also schedule him for follow-up 1 week after initial treatment with labs at that time. PLAN: 1. Cycle 1, day 1 of cisplatin and etoposide today. Treatment planned every 21 days x4 cycles with concurrent radiation therapy. 2. Continue radiation therapy, started May 19, 2018. 3. Mouth rinses and neutropenic precautions. 4. Filgrastim support if indicated. 5. Transfuse RBCs or platelets if indicated. 6. Return appointment in 1 week. 7. CBC, CMP, magnesium prior to the visit. Also weekly CBC. 8. Return appointment in 3 weeks, prior to cycle 2 chemotherapy. Repeat CBC, CMP, magnesium, LDH prior to the visit. DICTATED BY AGATA CHASE MD MEDICAL ONCOLOGY AND HEMATOLOGY PN -Subjective Interval history: IDENTIFICATION: Mr. Alexander is a 77-year-old gentleman with small cell carcinoma of the lung diagnosed with CT-guided biopsy of left lower lobe mass on April 05, 2018. INTERVAL HISTORY: He returns with his today to begin chemotherapy treatment. He received his 1st radiation treatment earlier this morning. He also had a teaching visit with Rae PERKINS. She made referral to Dr. Renteria and for evaluation of possible leukoplakia. He otherwise feels okay and ready to begin treatment today he says. He denies productive cough, chest pain or hemoptysis. No fever, chills, nausea or vomiting. No new bone pain, headaches or neurologic symptoms. PRIOR NOTE: HISTORY OF PRESENT ILLNESS: He presents to clinic today accompanied by his , Lizzette. He was born and raised in [place] , retiring from work at the [employer]. Former smoker from about age 19 until his late 50s, averaging about a pack per day. No recent alcohol consumption but previously consumed about 1 beer per day on average. Heavier some years in the past. He was recently seen at [facility] ED for shortness of breath and a chest x-ray was obtained on March showing a 4 cm left lower lobe lung mass. On April 05, [address]-guided biopsy of the left lower lung mass which showed a 4 cm mass in the left lower lobe with no additional pulmonary nodules or adenopathy reported. Biopsy ([id number]) shows: High-grade neuroendocrine (small cell) carcinoma. Immunohistochemistry studies showed the tumor to be positive for cytokeratin STEVENSON, cytokeratin 7, TTF 1 and CD 56 with rare positive cells for P 40. Negative for cytokeratin 20, Napsin-a, chromogranin, synaptophysin, CK 5/6, PSA and ERG. He currently denies any chest pain or significant discomfort, productive cough or hemoptysis. Breathing is stable and similar to previous months. He does note some lower back pain he has had for the past 3 or 4 months but typically gets prompt relief with mechanical readjustment from his chiropractor. He otherwise denies any new or progressive bone pain. No headaches or new neurologic symptoms, fever, chills, nausea or abdominal pain. - Patient Self-Reported Symptoms SR ears, nose, mouth, throat issues: Mouth sores SR respiratory issues: Cough SR Genitourinary issues: Incontinence - Additional ROS Additional ROS: Review of systems: General: No fever or chills. HEENT: No headaches, vision change or dysphagia. Respiratory: As above. Cardiac: No chest pain, PND or orthopnea. GI: As above. : Stable. Musculoskeletal: Otherwise negative. Neurologic: Stable. Results - Labs 05/19/18 10:45 05/19/18 10:45 - Imaging Additional studies: Procedures Contrast myelogram (10/10/13) Insertion of intraocular lens prosthesis at time of cataract extraction, one-stage (01/03/15) Intraoperative cholangiogram (07/29/11) Laparoscopic cholecystectomy (07/29/11) Phacoemulsification and aspiration of cataract (01/03/15) Transfusion of Nonautologous Red Blood Cells into Peripheral Vein, Percutaneous Approach (05/22/17) Home Medications and Allergies Home Medications Medication Instructions Recorded Confirmed Type Calcium Carbonate/Vitamin D 1 tab PO QDAY #0 07/25/11 04/28/18 History (#CALCIUM W/VITAMIN D 600 MG-125 IU) multivitamin 1 tab PO DAILY #0 09/12/11 04/28/18 History cyanocobalamin (vitamin B-12) 3,000 mcg PO QAM #0 08/26/16 04/28/18 History aspirin 325 mg PO QDAY #0 07/29/17 04/28/18 History atorvastatin 60 mg PO HS #45 tab 10/29/17 04/28/18 Rx pantoprazole [Protonix] 40 mg PO QDAY #90 mg 11/20/17 04/28/18 Rx clotrimazole 1 applic TOPICAL BID 05/12/18 05/12/18 History nystatin 200,000 unit BUCCAL QID 05/12/18 05/12/18 History Allergies Allergy/AdvReac Type Severity Reaction Status Date / Time morphine [MORPHINE] Allergy Severe HALLUCINATI Verified 03/24/18 17:02 ONS thimerosal [THIMEROSAL] Allergy Mild PANCHAL Verified 03/24/18 17:02 ketamine [KETAMINE] AdvReac Unknown BECAME Verified 03/24/18 17:02 ANGRY; YELLING AT ER STAFF AND DOESN'T REMEMBER. Exam Vital signs: Last Vital Signs Temp 97 F L 05/14/18 13:23 Pulse 81 05/14/18 13:23 Resp 18 05/14/18 13:23 BP 122/80 H 05/14/18 13:23 Pulse Ox 97 05/14/18 13:23 - Constitutional positive no acute distress, positive average body habitus, positive cooperative - Routine HEENT Exam Head: Present: normocephalic, atraumatic Eye: Present: EOMI, PERRL. Absent: conjunctival icterus, scleral injection ENT: Present: mucous membranes moist, oropharynx clear - Routine Respiratory Exam Present: Clear to auscultation bilaterally. Absent: accessory muscle use, rales, wheezes - Routine Cardiovascular Exam Present: RRR, S1, S2, murmur. Absent: S3 - Routine Abdominal Exam Present: soft, normoactive bowel sounds. Absent: tenderness, organomegaly Palpation/Percussion: Absent: hepatomegaly - Routine Extremities Exam Absent: cyanosis, clubbing, edema - Routine Skin Exam Present: intact. Absent: cyanosis, erythema, jaundice, rash, ecchymosis - Routine Neurological Exam Present: alert, oriented X3, moving all extremities, normal speech - Routine Psychiatric Exam Present: normal affect, normal thought process, cooperative, good judgment
[2018-05-19 11:16] LABS: Alanine Aminotransferase 21 IU/L (21-72); Albumin 4.1 g/dL (3.5-5.0); Albumin Globulin Ratio 1.4 (1.0-2.8); Alkaline Phosphatase 157 U/L (38-126); Aspartate Aminotransferase 30 IU/L (17-59); Bilirubin Total 0.6 mg/dL (0.2-1.3); Blood Urea Nitrogen 14 mg/dL (9-20); Calcium 9.1 mg/dL (8.4-10.2); Carbon Dioxide 27 mmol/L (22-32); Chloride 98 mmol/L (98-107); Estimated Glomerular Filt Rate > 60.0 mL/min (>60); Glucose 134 mg/dL (80-110); HEMOLYSIS < 15 (0-50); Lactate Dehydrogenase 423 U/L (313-618); Magnesium 1.5 mg/dL (1.6-2.3); Sodium 136 mmol/L (137-145); Total Protein 7.1 g/dL (6.3-8.2)
--- NOTE | 2018-05-19 11:27 | P.PNONC_ITS ---
Assessment and Plan - Time Spent with Patient IMPRESSION: 1. Small cell carcinoma of the lung, limited stage disease. CT-guided biopsy of left lower lobe mass on April 05, 2018. Staging with CT chest/abdomen/pelvis shows a single 0.8 cm retroperitoneal lymph node but no definite findings to suggest metastatic disease. MR brain shows no evidence of SCOUT LEASER metastases. Consultation with Dr. Wilburn May 06, 2018. 2. History of tobacco use 3. Aortic stenosis 4. Peripheral vascular disease 5. History of prostate cancer, status post prostate[place] [address] Perkins. 6. Oral leukoplakia. Biopsies taken. 7. Urinary incontinence. 8. 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 He returns today ready to begin chemotherapy treatment with cisplatin and etoposide. He received his 1st treatment with radiation therapy earlier this morning. We reviewed the treatment plan, side effects and potential toxicities , treatment schedule, logistics and related issues and concerns. He and his are comfortable with the plan. He has no further questions at this time. I encouraged him to monitor for fever, chills, bleeding, rash or any other concerns and call back as needed. We will also schedule him for follow-up 1 week after initial treatment with labs at that time. PLAN: 1. Cycle 1, day 1 of cisplatin and etoposide today. Treatment planned every 21 days x4 cycles with concurrent radiation therapy. 2. Continue radiation therapy, started May 19, 2018. 3. Mouth rinses and neutropenic precautions. 4. Filgrastim support if indicated. 5. Transfuse RBCs or platelets if indicated. 6. Return appointment in 1 week. 7. CBC, CMP, magnesium prior to the visit. Also weekly CBC. 8. Return appointment in 3 weeks, prior to cycle 2 chemotherapy. Repeat CBC, CMP, magnesium, LDH prior to the visit. DICTATED BY AGATA CHASE MD MEDICAL ONCOLOGY AND HEMATOLOGY PN -Subjective Interval history: IDENTIFICATION: Mr. Alexander is a 77-year-old gentleman with small cell carcinoma of the lung diagnosed with CT-guided biopsy of left lower lobe mass on April 05, 2018. INTERVAL HISTORY: He returns with his today to begin chemotherapy treatment. He received his 1st radiation treatment earlier this morning. He also had a teaching visit with Rae PERKINS. She made referral to Dr. Renteria and for evaluation of possible leukoplakia. He otherwise feels okay and ready to begin treatment today he says. He denies productive cough, chest pain or hemoptysis. No fever, chills, nausea or vomiting. No new bone pain, headaches or neurologic symptoms. PRIOR NOTE: HISTORY OF PRESENT ILLNESS: He presents to clinic today accompanied by his , Lizzette. He was born and raised in [place] , retiring from work at the [employer]. Former smoker from about age 19 until his late 50s, averaging about a pack per day. No recent alcohol consumption but previously consumed about 1 beer per day on average. Heavier some years in the past. He was recently seen at [facility] ED for shortness of breath and a chest x-ray was obtained on March showing a 4 cm left lower lobe lung mass. On April 05, [address]-guided biopsy of the left lower lung mass which showed a 4 cm mass in the left lower lobe with no additional pulmonary nodules or adenopathy reported. Biopsy ([id number]) shows: High-grade neuroendocrine (small cell) carcinoma. Immunohistochemistry studies showed the tumor to be positive for cytokeratin STEVENSON, cytokeratin 7, TTF 1 and CD 56 with rare positive cells for P 40. Negative for cytokeratin 20, Napsin-a, chromogranin, synaptophysin, CK 5/ 6, PSA and ERG. He currently denies any chest pain or significant discomfort, productive cough or hemoptysis. Breathing is stable and similar to previous months. He does note some lower back pain he has had for the past 3 or 4 months but typically gets prompt relief with mechanical readjustment from his chiropractor. He otherwise denies any new or progressive bone pain. No headaches or new neurologic symptoms, fever, chills, nausea or abdominal pain. - Patient Self-Reported Symptoms SR ears, nose, mouth, throat issues: Mouth sores SR respiratory issues: Cough SR Genitourinary issues: Incontinence - Additional ROS Additional ROS: Review of systems: General: No fever or chills. HEENT: No headaches, vision change or dysphagia. Respiratory: As above. Cardiac: No chest pain, PND or orthopnea. GI: As above. : Stable. Musculoskeletal: Otherwise negative. Neurologic: Stable. Results - Labs 05/19/18 10:45 05/19/18 10:45 - Imaging Additional studies: Procedures Contrast myelogram (10/10/13) Insertion of intraocular lens prosthesis at time of cataract extraction, one- stage (01/03/15) Intraoperative cholangiogram (07/29/11) Laparoscopic cholecystectomy (07/29/11) Phacoemulsification and aspiration of cataract (01/03/15) Transfusion of Nonautologous Red Blood Cells into Peripheral Vein, Percutaneous Approach (05/22/17) Home Medications and Allergies Home Medications Medication Instructions Recorded Confirmed Type Calcium Carbonate/Vitamin D 1 tab PO QDAY #0 07/25/11 04/28/18 History (#CALCIUM W/VITAMIN D 600 MG-125 IU) multivitamin 1 tab PO DAILY #0 09/12/11 04/28/18 History cyanocobalamin (vitamin B-12) 3,000 mcg PO QAM #0 08/26/16 04/28/18 History aspirin 325 mg PO QDAY #0 07/29/17 04/28/18 History atorvastatin 60 mg PO HS #45 tab 10/29/17 04/28/18 Rx pantoprazole [Protonix] 40 mg PO QDAY #90 mg 11/20/17 04/28/18 Rx clotrimazole 1 applic TOPICAL BID 05/12/18 05/12/18 History nystatin 200,000 unit BUCCAL QID 05/12/18 05/12/18 History Allergies Allergy/AdvReac Type Severity Reaction Status Date / Time morphine [MORPHINE] Allergy Severe HALLUCINATI Verified 03/24/18 17:02 ONS thimerosal [THIMEROSAL] Allergy Mild PANCHAL Verified 03/24/18 17:02 ketamine [KETAMINE] AdvReac Unknown BECAME Verified 03/24/18 17:02 ANGRY; YELLING AT ER STAFF AND DOESN'T REMEMBER. Exam Vital signs: Last Vital Signs Temp 97 F L 05/14/18 13:23 Pulse 81 05/14/18 13:23 Resp 18 05/14/18 13:23 BP 122/80 H 05/14/18 13:23 Pulse Ox 97 05/14/18 13:23 - Constitutional positive no acute distress, positive average body habitus, positive cooperative - Routine HEENT Exam Head: Present: normocephalic, atraumatic Eye: Present: EOMI, PERRL. Absent: conjunctival icterus, scleral injection ENT: Present: mucous membranes moist, oropharynx clear - Routine Respiratory Exam Present: Clear to auscultation bilaterally. Absent: accessory muscle use, rales , wheezes - Routine Cardiovascular Exam Present: RRR, S1, S2, murmur. Absent: S3 - Routine Abdominal Exam Present: soft, normoactive bowel sounds. Absent: tenderness, organomegaly Palpation/Percussion: Absent: hepatomegaly - Routine Extremities Exam Absent: cyanosis, clubbing, edema - Routine Skin Exam Present: intact. Absent: cyanosis, erythema, jaundice, rash, ecchymosis - Routine Neurological Exam Present: alert, oriented X3, moving all extremities, normal speech - Routine Psychiatric Exam Present: normal affect, normal thought process, cooperative, good judgment
[2018-05-19 11:36] VITALS: BP 109/68; PULSE 82; RESP 15; TEMP 36.7; O2SAT 99
[2018-05-19] MEDS: SODIUM CHLORIDE 0.9% 1,000 ML 500 ML IV (11:43)
[2018-05-19] MEDS: DEXAMETHASONE 12 MG in SODIUM CHLORIDE 0.9% 50 ML 212 ML IV (11:47)
[2018-05-19] MEDS: LORazepam 0.5 MG TABLET PO (11:47)
[2018-05-19] MEDS: FOSAPREPITANT 150 MG in SODIUM CHLORIDE 0.9% 150 ML 300 ML IV (12:13)
[2018-05-19] MEDS: ONDANSETRON 16 MG in SODIUM CHLORIDE 0.9% 50 ML 232 ML IV (13:00)
[2018-05-19] MEDS: POTASSIUM CHLORIDE IV (13:33)
[2018-05-19] MEDS: CISPLATIN IV (13:33)
[2018-05-19] MEDS: MANNITOL IV (13:33)
[2018-05-19] MEDS: [UNRECOGNIZED DRUG - OTHER] IV (13:33)
[2018-05-19] MEDS: ETOPOSIDE 200 MG in NORMAL SALINE (CHEMO IV) 500ML 500 ML 510 ML IV (14:56)
[2018-05-20] MEDS: DEXAMETHASONE 10 MG/ML VIAL 8 MG IV (11:21)
[2018-05-20] MEDS: SODIUM CHLORIDE 0.9% 100 ML 21 ML IV (11:22)
[2018-05-20 11:34] VITALS: BP 158/97; PULSE 81; RESP 18; TEMP 36.5; O2SAT 97
--- NOTE | 2018-05-20 11:43 | PC.NURSE ---
This pt returns today for D2C1 of Etoposide. Unfortunately after his provider visit he was not prescribed any at home nausea relief. He did experience emesis today and even after fluids with his treatment yesterday, he is feeling dehydrated. He will need IVF today, maybe ativan IV of PO for nausea. He will also need an RX for home to relief any further nausea.
[2018-05-20] MEDS: ONDANSETRON 8 MG in SODIUM CHLORIDE 0.9% 50 ML 216 ML IV (11:44)
[2018-05-20] MEDS: SODIUM CHLORIDE 0.9% 1,000 ML 1000 ML IV (12:00)
[2018-05-20] MEDS: PROMETHAZINE 25 MG in SODIUM CHLORIDE 0.9% 50 ML 204 ML IV (13:15)
[2018-05-20] MEDS: ETOPOSIDE 200 MG in NORMAL SALINE (CHEMO IV) 500ML 500 ML 510 ML IV (13:37)
--- NOTE | 2018-05-20 14:18 | ONC.APRN.PN ---
Assessment and Plan (1) Small cell carcinoma of lung Current visit: Yes Status: Acute 05/20/18 14:25 C1D2 cisplatin and etoposide also receiving concurrent radiation. Acute visit for severe nausea and vomiting. Will provide the patient with Zofran 4 mg IV now. Also 1 L of normal saline. He is complaining of muscle cramping we will also provide him with IV magnesium. If still with nausea and/or vomiting after 30 min okay for Phenergan 25 mg IV slow push over at least 2 min. For any worsening symptoms or if no improvement I will evaluate the patient once again. - Time Spent with Patient 10 mins PN -Subjective Interval history: Urgent visit to see Chan today in transfusion room. He is at clinic today for cycle 1 day 2 of cisplatin and etoposide. He is feeling quite poorly specifically he is having nausea with vomiting. Also reporting some leg cramps. He has been nauseous since receiving treatment yesterday unfortunately he did not have any anti emetic medication at home. Additionally, magnesium was noted to be just a bit low at 1.5. 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 Chan denies cough, fever, chills. He admits to fatigue and nausea. He has had emesis x2 here at the infusion Center. He reports ?cramps? in his lower extremities. No swelling. No pain per se. He denies chest pain, shortness of breath. No abdominal pain. He does not have any appetite. Previous note yesterday 05/19/2018 Dr Vickers: IDENTIFICATION: Mr. Alexander is a 77-year-old gentleman with small cell carcinoma of the lung diagnosed with CT-guided biopsy of left lower lobe mass on April 05, 2018. INTERVAL HISTORY: He returns with his today to begin chemotherapy treatment. He received his 1st radiation treatment earlier this morning. He also had a teaching visit with Rae PERKINS. She made referral to Dr. Renteria and for evaluation of possible leukoplakia. He otherwise feels okay and ready to begin treatment today he says. He denies productive cough, chest pain or hemoptysis. No fever, chills, nausea or vomiting. No new bone pain, headaches or neurologic symptoms. PRIOR NOTE: HISTORY OF PRESENT ILLNESS: He presents to clinic today accompanied by his , Lizzette. He was born and raised in [place] , retiring from work at the [employer]. Former smoker from about age 19 until his late 50s, averaging about a pack per day. No recent alcohol consumption but previously consumed about 1 beer per day on average. Heavier some years in the past. He was recently seen at [facility] ED for shortness of breath and a chest x-ray was obtained on March showing a 4 cm left lower lobe lung mass. On April 05, [address]-guided biopsy of the left lower lung mass which showed a 4 cm mass in the left lower lobe with no additional pulmonary nodules or adenopathy reported. Biopsy ([id number]) shows: High-grade neuroendocrine (small cell) carcinoma. Immunohistochemistry studies showed the tumor to be positive for cytokeratin STEVENSON, cytokeratin 7, TTF 1 and CD 56 with rare positive cells for P 40. Negative for cytokeratin 20, Napsin-a, chromogranin, synaptophysin, CK 5/6, PSA and ERG. He currently denies any chest pain or significant discomfort, productive cough or hemoptysis. Breathing is stable and similar to previous months. He does note some lower back pain he has had for the past 3 or 4 months but typically gets prompt relief with mechanical readjustment from his chiropractor. He otherwise denies any new or progressive bone pain. No headaches or new neurologic symptoms, fever, chills, nausea or abdominal pain. - Patient Self-Reported Symptoms SR ears, nose, mouth, throat issues: Mouth sores SR respiratory issues: Cough SR Genitourinary issues: Incontinence Results - Labs 05/19/18 10:45 05/19/18 10:45 Laboratory Last Values WBC 8.2 X10^3/uL (4.5-11.0) 05/19/18 10:45 RBC 3.79 X10^6/uL (4.5-5.9) L 05/19/18 10:45 Hgb 12.9 g/dL (13.5-17.5) L 05/19/18 10:45 Hct 37.9 % (41-53) L 05/19/18 10:45 MCV 99.8 fL (80-100) 05/19/18 10:45 MCH 33.9 PG (26-34) 05/19/18 10:45 MCHC 33.9 % (30-36) 05/19/18 10:45 RDW 15.8 % (11.6-14.8) H 05/19/18 10:45 Plt Count 290 X10^3/uL (150-400) 05/19/18 10:45 Neut % (Auto) 68.2 % (50-75) 05/19/18 10:45 Lymph % (Auto) 17.7 % (25-40) L 05/19/18 10:45 [place] % (Auto) 12.2 % (3-14) 05/19/18 10:45 Eos % (Auto) 1.2 % (2-4) L 05/19/18 10:45 Baso % (Auto) 0.7 % (0-2) 05/19/18 10:45 Neut # (Auto) 5600 /uL (4574-4568) 05/19/18 10:45 Sodium 136 mmol/L (137-145) L 05/19/18 10:45 Potassium 4.0 mmol/L (3.4-5.1) 05/19/18 10:45 Chloride 98 mmol/L (98-107) 05/19/18 10:45 Carbon Dioxide 27 mmol/L (22-32) 05/19/18 10:45 BUN 14 mg/dL (9-20) 05/19/18 10:45 Creatinine 1.00 mg/dL (0.66-1.25) 05/19/18 10:45 Estimated GFR > 60.0 mL/min (>60) 05/19/18 10:45 BUN/Creatinine Ratio 14.0 (6-22) 05/19/18 10:45 Glucose 134 mg/dL (80-110) H 05/19/18 10:45 Calcium 9.1 mg/dL (8.4-10.2) 05/19/18 10:45 Magnesium 1.5 mg/dL (1.6-2.3) L 05/19/18 10:45 Total Bilirubin 0.6 mg/dL (0.2-1.3) 05/19/18 10:45 AST 30 IU/L (17-59) 05/19/18 10:45 ALT 21 IU/L (21-72) 05/19/18 10:45 Alkaline Phosphatase 157 U/L (38-126) H 05/19/18 10:45 Lactate Dehydrogenase 423 U/L (313-618) 05/19/18 10:45 Total Protein 7.1 g/dL (6.3-8.2) 05/19/18 10:45 Albumin 4.1 g/dL (3.5-5.0) 05/19/18 10:45 Globulin 3.0 g/dL (1.7-4.1) 05/19/18 10:45 Albumin/Globulin Ratio 1.4 (1.0-2.8) 05/19/18 10:45 - Imaging Additional studies: Procedures Contrast myelogram (10/10/13) Insertion of intraocular lens prosthesis at time of cataract extraction, one-stage (01/03/15) Intraoperative cholangiogram (07/29/11) Laparoscopic cholecystectomy (07/29/11) Phacoemulsification and aspiration of cataract (01/03/15) Transfusion of Nonautologous Red Blood Cells into Peripheral Vein, Percutaneous Approach (05/22/17) Home Medications and Allergies Home Medications Medication Instructions Recorded Confirmed Type Calcium Carbonate/Vitamin D 1 tab PO QDAY #0 07/25/11 04/28/18 History (#CALCIUM W/VITAMIN D 600 MG-125 IU) multivitamin 1 tab PO DAILY #0 09/12/11 04/28/18 History cyanocobalamin (vitamin B-12) 3,000 mcg PO QAM #0 08/26/16 04/28/18 History aspirin 325 mg PO QDAY #0 07/29/17 04/28/18 History atorvastatin 60 mg PO HS #45 tab 10/29/17 04/28/18 Rx pantoprazole [Protonix] 40 mg PO QDAY #90 mg 11/20/17 04/28/18 Rx clotrimazole 1 applic TOPICAL BID 05/12/18 05/12/18 History nystatin 200,000 unit BUCCAL QID 05/12/18 05/12/18 History ondansetron [Zofran ODT] 4 mg PO Q6-8H PRN #30 tab 05/20/18 Rx Allergies Allergy/AdvReac Type Severity Reaction Status Date / Time morphine [MORPHINE] Allergy Severe HALLUCINATI Verified 03/24/18 17:02 ONS thimerosal [THIMEROSAL] Allergy Mild PANCHAL Verified 03/24/18 17:02 ketamine [KETAMINE] AdvReac Unknown BECAME Verified 03/24/18 17:02 ANGRY; YELLING AT ER STAFF AND DOESN'T REMEMBER. Exam Vital signs: Last Vital Signs Temp 97.7 F 05/20/18 11:34 Pulse 81 05/20/18 11:34 Resp 18 05/20/18 11:34 BP 158/97 H 05/20/18 11:34 Pulse Ox 97 05/20/18 11:34 Narrative: non toxic appearing - Constitutional positive mild distress Comments: holding emesis bag - Routine Neck Exam Present: supple. Absent: lymphadenopathy - Routine Respiratory Exam Present: Clear to auscultation bilaterally, decreased breath sounds. Absent: rhonchi, wheezes, crackles - Routine Cardiovascular Exam Present: RRR, S1, S2. Absent: JVD - Routine Abdominal Exam Present: soft, normoactive bowel sounds. Absent: tenderness, distended, organomegaly - Routine Extremities Exam Absent: edema, calf tenderness, Jaison's sign - Routine Skin Exam Present: intact, normal turgor. Absent: petechiae, rash - Routine Neurological Exam Present: alert, oriented X3 - Routine Psychiatric Exam Present: normal affect
[2018-05-20] MEDS: diphenhydrAMINE 50 MG/ML VIAL 12.5 MG IV (14:20)
[2018-05-20] MEDS: MAGNESIUM SULFATE 1 GM in SODIUM CHLORIDE 0.9% 100 ML 102 ML IV (15:35)
--- NOTE | 2018-05-20 17:49 | PC.NURSE ---
Pt here for day 2 chemo-has had N/V at home.Pt reports some cramping in L leg Mg from 05/19 1.5.Pre-meds started had episode emesis-promethazine added.pt began to experience extrapyramidal sx-twitching,muscle spasms, tightening of back AUDIENCE DEVELOPMENT MANAGER evaluted and ordered benadryl with eventual resolution of sx.COSTUME RENTAL CLERK-16 given 1 gm mgso4 given.On departure pt sleepy but able to transfer. aware that if there is any worsening of sx or concerns they can go to the ER.Pt states he's hungry.Out to car in wheelchair-2nd dose magnesium tomm
[2018-05-21] MEDS: LORazepam 2 MG/ML SYRINGE 1 MG IV (11:49)
[2018-05-21] MEDS: ONDANSETRON 8 MG in SODIUM CHLORIDE 0.9% 50 ML 216 ML IV (11:52)
[2018-05-21] MEDS: DEXAMETHASONE 10 MG/ML VIAL 8 MG IV (11:54)
[2018-05-21] MEDS: SODIUM CHLORIDE 0.9% 100 ML 21 ML IV (11:57)
[2018-05-21] MEDS: MAGNESIUM SULFATE IV (12:20)
[2018-05-21] MEDS: SODIUM CHLORIDE 0.9% IV (12:20)
[2018-05-21] MEDS: ETOPOSIDE 200 MG in NORMAL SALINE (CHEMO IV) 500ML 500 ML 510 ML IV (13:43)
--- NOTE | 2018-05-27 13:43 | P.PNONC_ITS ---
Assessment and Plan (1) Small cell carcinoma of lung Current visit: No Status: Acute 05/27/18 15:36 Chan is a very pleasant 77-year-old male who recently began treatment May 17, 2018 non-small cell lung cancer, appears to be localized at this point. No clear evidence of metastatic disease. In review of notes staging workup is not yet complete. Patient is feeling better today than he was last week, last week with chemotherapy he was acutely ill with severe nausea and vomiting requiring IV antiemetics as well as IV hydration. Patient reports he is much better now only requiring Zofran once or twice daily. 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 He saw ENT last week biopsies were procured in review of pathology today to biopsies of the tongue are negative for any evidence of malignancy, dysplasia. Patient has follow-up appointment with ENT next ThursdayJune 01. Still no clear etiology for leukoplakia patient is no longer smoking, he does not drink any alcohol. However he does have metal dentures his dentists feels these may be the culprit. Continue soft bland diet. Return to clinic June 09 for cycle 2 day 1 cisplatin and etoposide. He will then receive etoposide on day 2 and day 3 as well. - Time Spent with Patient 35 mins PN -Subjective Interval history: Chan is a 77-year-old male currently receiving treatment for small cell carcinoma of the lung, at present appears to be local disease no evidence at this time of metastatic disease. In review of notes staging work up is not yet complete. Treatment in the form of cisplatin and etoposide. Also receiving concurrent radiation. Chan presents today for interval clinical evaluation. he was acutely ill last week with treatment specifically with nausea and vomiting, he required IV anti emetics as well as IV hydration. Chan reports he is feeling better now taking zofran ODT 1-2 a day PRN. he is tolerating soft bland foods. He does still continue to have mouth pain due to lesions which has been an ongoing issue for more than a year. Reassuringly he did see ENT Dr. Renteria at [facility] who collected biopsies May 18, 2018. Pathology on 2 separate biopsies are malignant, negative for dysplasia and malignancy. While this is very reassuring still no clear etiology for this patient's leukoplakia. He is no longer smoking cigarettes or using any form of tobacco. No alcohol intake. He has a follow-up appointment with ENT next ThursdayJune 01. Otherwise the patient reports he is feeling better. As noted above nausea is mild and intermittent and has been managed with oral Zofran. He is feeling tired and weak however he feels better today than he did earlier in the week. No abdominal pain. No issues with bowel movements. No unexplained bruises or bleeding. He denies cough, fever, chills. Leg cramps have resolved. Previous note yesterday 05/19/2018 Dr Vickers: IDENTIFICATION: Mr. Alexander is a 77-year-old gentleman with small cell carcinoma of the lung diagnosed with CT-guided biopsy of left lower lobe mass on April 05, 2018. INTERVAL HISTORY: He returns with his today to begin chemotherapy treatment. He received his 1st radiation treatment earlier this morning. He also had a teaching visit with Rae PERKINS. She made referral to Dr. Renteria and for evaluation of possible leukoplakia. He otherwise feels okay and ready to begin treatment today he says. He denies productive cough, chest pain or hemoptysis. No fever, chills, nausea or vomiting. No new bone pain, headaches or neurologic symptoms. PRIOR NOTE: HISTORY OF PRESENT ILLNESS: He presents to clinic today accompanied by his , Lizzette. He was born and raised in [place] , retiring from work at the [employer] Former smoker from about age 19 until his late 50s, averaging about a pack per day. No recent alcohol consumption but previously consumed about 1 beer per day on average. Heavier some years in the past. He was recently seen at [facility] ED for shortness of breath and a chest x-ray was obtained on March showing a 4 cm left lower lobe lung mass. On April 05, [address]-guided biopsy of the left lower lung mass which showed a 4 cm mass in the left lower lobe with no additional pulmonary nodules or adenopathy reported. Biopsy ([id number]) shows: High-grade neuroendocrine (small cell) carcinoma. Immunohistochemistry studies showed the tumor to be positive for cytokeratin STEVENSON, cytokeratin 7, TTF 1 and CD 56 with rare positive cells for P 40. Negative for cytokeratin 20, Napsin-a, chromogranin, synaptophysin, CK 5/ 6, PSA and ERG. He currently denies any chest pain or significant discomfort, productive cough or hemoptysis. Breathing is stable and similar to previous months. He does note some lower back pain he has had for the past 3 or 4 months but typically gets prompt relief with mechanical readjustment from his chiropractor. He otherwise denies any new or progressive bone pain. No headaches or new neurologic symptoms, fever, chills, nausea or abdominal pain. - Patient Self-Reported Symptoms SR ears, nose, mouth, throat issues: Mouth sores SR respiratory issues: Cough SR Genitourinary issues: Incontinence Results - Labs 05/27/18 14:23 05/27/18 14:23 Laboratory Last Values WBC 8.2 X10^3/uL (4.5-11.0) 05/19/18 10:45 RBC 3.79 X10^6/uL (4.5-5.9) L 05/19/18 10:45 Hgb 12.9 g/dL (13.5-17.5) L 05/19/18 10:45 Hct 37.9 % (41-53) L 05/19/18 10:45 MCV 99.8 fL (80-100) 05/19/18 10:45 MCH 33.9 PG (26-34) 05/19/18 10:45 MCHC 33.9 % (30-36) 05/19/18 10:45 RDW 15.8 % (11.6-14.8) H 05/19/18 10:45 Plt Count 290 X10^3/uL (150-400) 05/19/18 10:45 Neut % (Auto) 68.2 % (50-75) 05/19/18 10:45 Lymph % (Auto) 17.7 % (25-40) L 05/19/18 10:45 [place] % (Auto) 12.2 % (3-14) 05/19/18 10:45 Eos % (Auto) 1.2 % (2-4) L 05/19/18 10:45 Baso % (Auto) 0.7 % (0-2) 05/19/18 10:45 Neut # (Auto) 5600 /uL (7796-3775) 05/19/18 10:45 Sodium 136 mmol/L (137-145) L 05/19/18 10:45 Potassium 4.0 mmol/L (3.4-5.1) 05/19/18 10:45 Chloride 98 mmol/L (98-107) 05/19/18 10:45 Carbon Dioxide 27 mmol/L (22-32) 05/19/18 10:45 BUN 14 mg/dL (9-20) 05/19/18 10:45 Creatinine 1.00 mg/dL (0.66-1.25) 05/19/18 10:45 Estimated GFR > 60.0 mL/min (>60) 05/19/18 10:45 BUN/Creatinine Ratio 14.0 (6-22) 05/19/18 10:45 Glucose 134 mg/dL (80-110) H 05/19/18 10:45 Calcium 9.1 mg/dL (8.4-10.2) 05/19/18 10:45 Magnesium 1.5 mg/dL (1.6-2.3) L 05/19/18 10:45 Total Bilirubin 0.6 mg/dL (0.2-1.3) 05/19/18 10:45 AST 30 IU/L (17-59) 05/19/18 10:45 ALT 21 IU/L (21-72) 05/19/18 10:45 Alkaline Phosphatase 157 U/L (38-126) H 05/19/18 10:45 Lactate Dehydrogenase 423 U/L (313-618) 05/19/18 10:45 Total Protein 7.1 g/dL (6.3-8.2) 05/19/18 10:45 Albumin 4.1 g/dL (3.5-5.0) 05/19/18 10:45 Globulin 3.0 g/dL (1.7-4.1) 05/19/18 10:45 Albumin/Globulin Ratio 1.4 (1.0-2.8) 05/19/18 10:45 - Imaging Additional studies: Procedures Contrast myelogram (10/10/13) Insertion of intraocular lens prosthesis at time of cataract extraction, one- stage (01/03/15) Intraoperative cholangiogram (07/29/11) Laparoscopic cholecystectomy (07/29/11) Phacoemulsification and aspiration of cataract (01/03/15) Transfusion of Nonautologous Red Blood Cells into Peripheral Vein, Percutaneous Approach (05/22/17) Home Medications and Allergies Home Medications Medication Instructions Recorded Confirmed Type Calcium Carbonate/Vitamin D 1 tab PO QDAY #0 07/25/11 04/28/18 History (#CALCIUM W/VITAMIN D 600 MG-125 IU) multivitamin 1 tab PO DAILY #0 09/12/11 04/28/18 History cyanocobalamin (vitamin B-12) 3,000 mcg PO QAM #0 08/26/16 04/28/18 History aspirin 325 mg PO QDAY #0 07/29/17 04/28/18 History atorvastatin 60 mg PO HS #45 tab 10/29/17 04/28/18 Rx pantoprazole [Protonix] 40 mg PO QDAY #90 mg 11/20/17 04/28/18 Rx clotrimazole 1 applic TOPICAL BID 05/12/18 05/12/18 History nystatin 200,000 unit BUCCAL QID 05/12/18 05/12/18 History lorazepam 0.5 mg PO Q6-8H PRN #30 tab 05/20/18 Rx ondansetron [Zofran ODT] 4 mg PO Q6-8H PRN #30 tab 05/20/18 Rx Allergies Allergy/AdvReac Type Severity Reaction Status Date / Time morphine [MORPHINE] Allergy Severe HALLUCINATI Verified 03/24/18 17:02 ONS thimerosal [THIMEROSAL] Allergy Mild PANCHAL Verified 03/24/18 17:02 ketamine [KETAMINE] AdvReac Unknown BECAME Verified 03/24/18 17:02 ANGRY; YELLING AT ER STAFF AND DOESN'T REMEMBER. Exam Vital signs: Last Vital Signs Temp 97.7 F 05/20/18 11:34 Pulse 81 05/20/18 11:34 Resp 18 05/20/18 11:34 BP 158/97 H 05/20/18 11:34 Pulse Ox 97 05/20/18 11:34 Narrative: non toxic appearing - Constitutional positive no acute distress - Routine HEENT Exam ENT: Present: mucous membranes moist. Absent: oropharynx clear Comments: 2 white patchy lesions, previously biopsied by ENT - Routine Neck Exam Present: supple. Absent: lymphadenopathy - Routine Respiratory Exam Present: Clear to auscultation bilaterally, decreased breath sounds. Absent: rales, rhonchi, wheezes - Routine Cardiovascular Exam Present: RRR, S1, S2, murmur. Absent: JVD Comments: 3/6 systolic murmur - Routine Abdominal Exam Present: soft, normoactive bowel sounds. Absent: distended, organomegaly - Routine Extremities Exam Absent: edema, calf tenderness - Routine Skin Exam Present: intact, normal turgor. Absent: petechiae - Routine Neurological Exam Present: alert, oriented X3 - Routine Psychiatric Exam Present: normal affect
[2018-05-27 14:34] LABS: Add Manual Diff / Slide Review NO; Basophils Percent Auto 0.7 % (0-2); Eosinophils Percent Auto 0.8 % (2-4); Hematocrit 31.7 % (41-53); Hemoglobin 11.1 g/dL (13.5-17.5); Lymphocytes Percent Auto 22.2 % (25-40); Mean Corpuscular HGB Conc 34.9 % (30-36); Mean Corpuscular Hemoglobin 34.3 PG (26-34); Mean Corpuscular Volume 98.3 fL (80-100); Monocytes Percent Auto 0.7 % (3-14); Neutrophils Absolute Auto 2100 /uL (3000-5900); Neutrophils Percent Auto 75.6 % (50-75); Platelet Count 108 X10^3/uL (150-400); Red Blood Cell Count 3.22 X10^6/uL (4.5-5.9); Red Cell Distribution Width 15.1 % (11.6-14.8); White Blood Cell Count 2.8 X10^3/uL (4.5-11.0)
[2018-05-27 15:02] LABS: Alanine Aminotransferase 33 IU/L (21-72); Albumin 3.5 g/dL (3.5-5.0); Albumin Globulin Ratio 1.2 (1.0-2.8); Alkaline Phosphatase 123 U/L (38-126); Aspartate Aminotransferase 27 IU/L (17-59); BUN Creatinine Ratio 26.7 (6-22); Blood Urea Nitrogen 24 mg/dL (9-20); Calcium 8.6 mg/dL (8.4-10.2); Carbon Dioxide 28 mmol/L (22-32); Chloride 93 mmol/L (98-107); Estimated Glomerular Filt Rate > 60.0 mL/min (>60); Globulin 2.9 g/dL (1.7-4.1); Glucose 117 mg/dL (80-110); HEMOLYSIS < 15 (0-50); Magnesium 1.2 mg/dL (1.6-2.3); Potassium 3.8 mmol/L (3.4-5.1); Sodium 133 mmol/L (137-145); Total Protein 6.4 g/dL (6.3-8.2)
[2018-05-27 15:34] VITALS: BP 113/69; PULSE 82; RESP 15; TEMP 36.6; O2SAT 96
--- NOTE | 2018-05-28 08:40 | PC.NURSE ---
Chart note from GREGORIO Corcoran, dated 05/27/18 was faxed to [facility] for visit with Dr. Lawler on 06/01/18. Jael GRIGGS
--- NOTE | 2018-06-01 10:15 | PC.NURSE ---
Received critical lab values from lab; WBC 0.2 and Platelet 25. fruit loader aware.
== END ==
PROVIDERS: Family Provider Family Medicine; PCP Family Medicine; Visit Provider Internal Medicine Hematology & Oncology
DX: C34.32 Malignant neoplasm of lower lobe, left bronchus or lung (principal); K13.21 Leukoplakia of oral mucosa, including tongue; Z87.891 Personal history of nicotine dependence
CPT/HCPCS: 36591; 80053; 83615; 83735; 85025; 96361; 96367; 96375; 96413; 96417; 99205; 99213; 99214; 99215; J1100; J1200; J1453; J2060; J2150; J2405; J2550; J3475; J3480; J9060; J9181

== ENCOUNTER 2018-05-30 10:37 | Emergency (ER) | payer MEDICARE, SELFPAY ==
[2018-05-30 10:40] VITALS: BP 139/88; PULSE 96; RESP 18; TEMP 37.2; O2SAT 99
--- NOTE | 2018-05-30 11:26 | PC.NURSE ---
10 days post chemo with mouth sores and swelling - has had negative biopsies of patches in mouth
--- NOTE | 2018-05-30 11:42 | ED_ITS ---
HPI - Dental/Oral General Chief complaint: Dental/Oral Stated complaint: chemo/radiation pt, trouble swallowing Time Seen by Provider: 05/30/18 11:16 Source: patient and RN notes reviewed Mode of arrival: ambulatory Limitations: no limitations History of Present Illness HPI Narrative: The patient is a 77-year-old male currently undergoing treatment chemotherapy for small cell lung cancer. He is taking cisplatin and etoposide last dose was about a week and half ago. He has since developed of mouth sores. He has even had been biopsied by ENT found to be benign. His dentures have been removed. He is not able to eat or drink due to severe pain in his mouth. Related Data Home Medications Medication Instructions Recorded Confirmed Calcium Carbonate/Vitamin D 1 tab PO QDAY #0 07/25/11 05/27/18 (#CALCIUM W/VITAMIN D 600 MG-125 IU) multivitamin 1 tab PO DAILY #0 09/12/11 05/27/18 cyanocobalamin (vitamin B-12) 3,000 mcg PO QAM #0 08/26/16 05/27/18 aspirin 325 mg PO QDAY #0 07/29/17 05/27/18 clotrimazole 1 applic TOPICAL BID 05/12/18 05/27/18 nystatin 200,000 unit BUCCAL QID 05/12/18 05/27/18 Previous Rx's Medication Instructions Recorded atorvastatin 60 mg PO HS #45 tab 10/29/17 pantoprazole [Protonix] 40 mg PO QDAY #90 mg 11/20/17 lorazepam 0.5 mg PO Q6-8H PRN #30 tab 05/20/18 ondansetron [Zofran ODT] 4 mg PO Q6-8H PRN #30 tab 05/20/18 Allergies Allergy/AdvReac Type Severity Reaction Status Date / Time morphine [MORPHINE] Allergy Severe HALLUCINATI Verified 05/30/18 11:23 ONS thimerosal [THIMEROSAL] Allergy Mild PANCHAL Verified 05/30/18 11:23 ketamine [KETAMINE] AdvReac Unknown BECAME Verified 05/30/18 11:23 ANGRY; YELLING AT ER STAFF AND DOESN'T REMEMBER. Review of Systems Review of Systems All systems reviewed & are unremarkable except as noted in HPI and below Constitutional Denies chills, Denies fever(s), Denies lethargy and Denies weakness Eyes Denies change in vision, Denies eye discharge, Denies irritation and Denies loss of vision ENT Ears, Nose, Mouth, and Throat: Reports system reviewed and no additional complaints, except as docu Cardiovascular Denies chest pain, Denies irregular heart rhythm, Denies lightheadedness, Denies palpitations and Denies orthopnea Gastrointestinal Gastrointestinal: Denies abdominal pain, Denies change in bowel habits, Denies diarrhea, Denies nausea and Denies vomiting Integumentary/Breasts Reports system reviewed and no additional complaints, except as docu Neurologic Denies loss of vision and Denies weakness Endocrine Denies palpitations PFSH Medical History GERD (gastroesophageal reflux disease) (Chronic ~1996) Pancreatitis (Chronic ~2001) Prostate cancer (Chronic ~2004) Surgical History Anesthesia (Resolved) Whipple disease (Resolved ~2011) Status post cholecystectomy (~2010) Status post laminectomy Status post radical cystoprostatectomy (~2004) Social History household members: spouse Smoking Status: Former smoker Exam Initial Vital Signs Initial Vital Signs: Vital Signs Temperature 98.9 F 05/30/18 10:40 Pulse Rate 96 H 05/30/18 10:40 Respiratory Rate 18 05/30/18 10:40 Blood Pressure 139/88 H 05/30/18 10:40 Pulse Oximetry 99 05/30/18 10:40 Const General: cooperative and ill appearing (chronically ill) Nutritional Appearance: thin HENMT Teeth and gingiva: other (White sores and ulcers all over mouth. Gums are swollen lips are swollen. Difficult to open his mouth. Managing secretions scarring) Resp Effort & Inspection: normal respiratory effort, able to speak in complete sentences and no stridor Auscultation: clear to auscultation bilaterally Cardio Rate: regular rate Rhythm: regular rhythm Heart Sounds: S1 normal and S2 normal GI Palpation: soft, No guarding and No tender Auscultation: normal bowel sounds Neuro General: alert, awake and oriented x3 Cranial Nerves: CN's II-XI intact bilaterally Extrem General: normal to inspection Left upper extremity: normal to inspection (PICC line in place) Course Orders Ordered: ED Orders 05/30/18 11:43 Complete Blood Count AUTO DIFF Stat Comprehensive Metabolic Panel Stat Discontinued Medications Lidocaine HCl 30 ml/ Al Hydrox /Mg Hydrox/Simethicone 30 ml/Nystatin 3,000,000 unit 0 ml MM NOW ONE Stop: 05/30/18 11:33 Last Admin: 05/30/18 12:23 Dose: 30 ml Sodium Chloride (Normal Saline 0.9%) 1,000 mls @ 1,000 mls/hr IV BOLUS ONE Stop: 05/30/18 12:31 Last Infusion: 05/30/18 13:30 Dose: 0 mls/hr Admin: 05/30/18 11:51 Dose: 1,000 mls/hr Vital Signs - 8 hr 05/30/18 10:40 05/30/18 12:57 05/30/18 13:47 Temperature 98.9 F Pulse Rate 96 H 89 94 H Respiratory Rate 18 15 15 Blood Pressure 139/88 H Blood Pressure [Right Arm] 145/82 H 132/79 H Pulse Oximetry 99 98 94 MDM - Dental/Oral Lab Data Result diagrams: 05/30/18 11:43 05/30/18 11:43 Lab Results 05/30/18 05/30/18 Range/Units 11:43 11:43 WBC 0.2 L* (4.5-11.0) X10^3/uL RBC 3.02 L (4.5-5.9) X10^6/uL Hgb 10.3 L (13.5-17.5) g/dL Hct 29.4 L (41-53) % MCV 97.5 (80-100) fL MCH 34.3 H (26-34) PG MCHC 35.1 (30-36) % RDW 14.9 H (11.6-14.8) % Plt Count 22 L* (150-400) X10^3/uL Neut % (Auto) TNP Lymph % (Auto) TNP [place] % (Auto) TNP Eos % (Auto) TNP Baso % (Auto) TNP Neut # (Auto) TNP Platelet Estimate Decreased on smear RBC Morphology Normal morphology Sodium 131 L (137-145) mmol/L Potassium 3.3 L (3.4-5.1) mmol/L Chloride 95 L (98-107) mmol/L Carbon Dioxide 27 (22-32) mmol/L BUN 18 (9-20) mg/dL Creatinine 0.80 (0.66-1.25) mg/dL Estimated GFR > 60.0 (>60) mL/min BUN/Creatinine Ratio 22.5 H (6-22) Glucose 125 H (80-110) mg/dL Calcium 8.6 (8.4-10.2) mg/dL Total Bilirubin 1.8 H (0.2-1.3) mg/dL AST 19 (17-59) IU/L ALT 25 (21-72) IU/L Alkaline Phosphatase 126 (38-126) U/L Total Protein 6.2 L (6.3-8.2) g/dL Albumin 3.3 L (3.5-5.0) g/dL Globulin 2.9 (1.7-4.1) g/dL Albumin/Globulin Ratio 1.1 (1.0-2.8) MDM Narrative Medical decision making narrative: Patient is neutropenic but afebrile. His sores in his mouth are likely mucositis from the etoposide, which is known to cause this. He is feeling much better after Magic mouthwash. These should resolve spontaneously but can be quite painful. I discussed all findings with the patient and spouse. Education has been performed regarding treatment plan, diagnosis, warning signs and symptoms and all concerns have been addressed. Verbally agree with and understood all of the above. Discharge Plan Departure Patient Disposition: Home, Self-Care Clinical Impression: Mucositis (ulcerative) due to antineoplastic therapy Discharge Date/Time: 05/30/18 13:53 Interventions: ED Discharge Assessment Last Done: 05/30/18 13:51 Instructions: Aphthous Ulcers Activity Restrictions/Additional Instructions: *You have been diagnosed with Mucositis *What to do: This is likely from her chemotherapy and should eventually resolve. *Continue to take medications as directed -Magic mouthwash 3 to 4 times a day especially before meal *Follow up with your primary care provider in 2-3 days *Return to ER if you should have decreased oral intake, fever more than 100.4 or any new, worsening or concerning symptoms Prescriptions: No Action Calcium Carbonate/Vitamin D (#CALCIUM W/VITAMIN D 600 MG-125 IU) 1 tab PO QDAY Qty: 0 RF: 0 multivitamin Tablet 1 tab PO DAILY Qty: 0 RF: 0 cyanocobalamin (vitamin B-12) 1,000 MCG tablet extended release 3,000 mcg PO QAM Qty: 0 RF: 0 aspirin 325 MG tablet 325 mg PO QDAY Qty: 0 RF: 0 atorvastatin 40 MG tablet 60 mg PO HS Qty: 45 RF: 6 pantoprazole [Protonix] 40 MG tablet,delayed release (DR/EC) 40 mg PO QDAY Qty: 90 RF: 3 nystatin 100,000 unit/mL Suspension 200,000 unit BUCCAL QID RF: 0 clotrimazole 1 % Cream 1 applic TOPICAL BID RF: 0 ondansetron [Zofran ODT] 4 mg Tablet,Disintegrating 4 mg PO Q6-8H PRN (Reason: Nausea) Qty: 30 RF: 0 lorazepam 0.5 mg Tablet 0.5 mg PO Q6-8H PRN (Reason: Nausea) Qty: 30 RF: 0 Referrals: Mendez Cuevas MD [Primary Care Provider] -
[2018-05-30] MEDS: SODIUM CHLORIDE 0.9% 1,000 ML 1000 ML IV (11:51)
[2018-05-30 11:55] LABS: Hematocrit 29.4 % (41-53); Hemoglobin 10.3 g/dL (13.5-17.5); Mean Corpuscular HGB Conc 35.1 % (30-36); Mean Corpuscular Hemoglobin 34.3 PG (26-34); Mean Corpuscular Volume 97.5 fL (80-100); Red Blood Cell Count 3.02 X10^6/uL (4.5-5.9); Red Cell Distribution Width 14.9 % (11.6-14.8)
[2018-05-30 11:59] LABS: Add Manual Diff / Slide Review NO
[2018-05-30 12:00] LABS: Platelet Count 22 X10^3/uL (150-400); White Blood Cell Count 0.2 X10^3/uL (4.5-11.0)
[2018-05-30 12:11] LABS: Alanine Aminotransferase 25 IU/L (21-72); Albumin 3.3 g/dL (3.5-5.0); Albumin Globulin Ratio 1.1 (1.0-2.8); Alkaline Phosphatase 126 U/L (38-126); Aspartate Aminotransferase 19 IU/L (17-59); BUN Creatinine Ratio 22.5 (6-22); Bilirubin Total 1.8 mg/dL (0.2-1.3); Blood Urea Nitrogen 18 mg/dL (9-20); Calcium 8.6 mg/dL (8.4-10.2); Carbon Dioxide 27 mmol/L (22-32); Chloride 95 mmol/L (98-107); Estimated Glomerular Filt Rate > 60.0 mL/min (>60); Globulin 2.9 g/dL (1.7-4.1); Glucose 125 mg/dL (80-110); HEMOLYSIS 18 (0-50); Potassium 3.3 mmol/L (3.4-5.1); Sodium 131 mmol/L (137-145); Total Protein 6.2 g/dL (6.3-8.2)
[2018-05-30] MEDS: LIDOCAINE VISCOUS 2% 30 ML, MAG HYDROX/ALUMINUM/SIMETH SUS 30 ML, NYSTATIN SUSP 3,000,0... MM (12:23)
[2018-05-30 12:40] LABS: Platelet Estimate Decreased on smear; RBC Morphology Normal Morphology
[2018-05-30 12:57] VITALS: BP 145/82; PULSE 89; RESP 15; O2SAT 98
--- NOTE | 2018-05-30 13:15 | PC.NURSE ---
Trial of drinking to see if pain is lessened enough to allow swallowing.
[2018-05-30 13:47] VITALS: BP 132/79; PULSE 94; RESP 15; O2SAT 94
== END 2018-05-30 13:53 | disposition home or self-care (01) ==
PROVIDERS: Emergency Provider Emergency Medicine; Family Provider Family Medicine; PCP Family Medicine
DX: R13.10 Dysphagia, unspecified (principal)
CPT/HCPCS: 36415; 80053; 85025; 99283

== ENCOUNTER 2018-06-01 09:10 | Inpatient (IN) | payer MEDICARE, SELFPAY ==
[2018-06-01] VITALS (15 sets, daily range): BP systolic 88–117; BP diastolic 59–71; PULSE 100–112; RESP 20–36; TEMP 35.9–39; O2SAT 84–100; BMI 21.9
--- NOTE | 2018-06-01 09:23 | ED_ITS ---
HPI - Weakness General Chief complaint: Weakness Stated complaint: Dehydration Time Seen by Provider: 06/01/18 09:17 Source: patient and EMS Mode of arrival: EMS Limitations: no limitations History of Present Illness HPI Narrative: Patient is a 77-year-old male currently undergoing chemotherapy for small cell lung cancer. This was diagnosed within the past 2 months. Patient also with significant stomatitis. Has been seen by ENT and has had biopsies. Has not been wearing his dentures for the past several days/weeks. Has had decreased oral intake secondary to nausea and vomiting and diarrhea and also the sores in his mouth. Patient states that for the past couple days and especially over the past 24-12 hours he has had worsening shortness of breath. No chest pain. EMS arrived stating that his oxygen saturations were in the low 80s. Upon arrival oxygen saturations were in the 80s. He is placed on non- rebreather at 15 L and oxygen saturations maintaining in the mid 80s. Patient did say that he wanted to be a full code. Patient was also tachycardic upon arrival. Related Data Home Medications Medication Instructions Recorded Confirmed multivitamin 1 tab PO DAILY #0 09/12/11 06/01/18 cyanocobalamin (vitamin B-12) 3,000 mcg PO QAM #0 08/26/16 06/01/18 aspirin 325 mg PO QDAY #0 07/29/17 06/01/18 Fish Oil 1200mg/Agar 3 720mg 1 cap PO DAILY 06/01/18 06/01/18 Magic Mouthwash 1 dose PO TID PRN 06/01/18 06/01/18 calcium carbonate-vitamin D3 1 cap PO DAILY 06/01/18 06/01/18 [Calcium 600 + D(3)] cilostazol 1 tab PO BIDAC 06/01/18 06/01/18 lorazepam 0.5 mg PO Q6-8H PRN 06/01/18 06/01/18 melatonin 10 mg PO BEDTIME PRN 06/01/18 06/01/18 Previous Rx's Medication Instructions Recorded atorvastatin 60 mg PO HS #45 tab 10/29/17 pantoprazole [Protonix] 40 mg PO QDAY #90 mg 11/20/17 ondansetron [Zofran ODT] 4 mg PO Q6-8H PRN #30 tab 06/28/18 Allergies Allergy/AdvReac Type Severity Reaction Status Date / Time morphine [MORPHINE] Allergy Severe HALLUCINATI Verified 05/30/18 11:23 ONS thimerosal [THIMEROSAL] Allergy Mild PANCHAL Verified 05/30/18 11:23 ketamine [KETAMINE] AdvReac Unknown BECAME Verified 05/30/18 11:23 ANGRY; YELLING AT ER STAFF AND DOESN'T REMEMBER. Review of Systems Constitutional Reports fatigue, Denies fever(s) and Denies frequent falls ENT Ears, Nose, Mouth, and Throat: Denies vertigo, Denies dizziness, Reports dry mouth and Denies sinus pressure Comments: Painful lesions in his mouth Cardiovascular Denies chest pain, Denies syncope, Reports rapid heart rate, Denies palpitations and Reports dyspnea Respiratory Denies chest congestion, Denies hemoptysis, Reports pain on inspiration, Reports dyspnea and Denies wheezing Gastrointestinal Gastrointestinal: Denies abdominal pain, Denies constipation, Reports nausea and Reports vomiting Genitourinary Denies dysuria and Denies flank pain Musculoskeletal Denies myalgias and Denies arthralgias Integumentary/Breasts Denies rash Neurologic Denies confusion, Denies vertigo, Denies dizziness, Denies syncope and Denies frequent falls Psychiatric Denies confusion Endocrine Reports fatigue and Denies palpitations Hematologic/Lymphatic Denies easy bruising Allergic/Immunologic Denies urticaria and Denies wheezing [facility] Medical History Small cell lung cancer (Acute) CVA (cerebral vascular accident) (Acute) Hypertension (Acute) Anemia (Acute) GERD (gastroesophageal reflux disease) (Chronic ~1996) Pancreatitis (Chronic ~2001) Prostate cancer (Chronic ~2004) Surgical History Anesthesia (Resolved) Whipple disease (Resolved ~2011) Status post cholecystectomy (~2010) Status post laminectomy Status post radical cystoprostatectomy (~2004) Family History Mother No problems noted. Social History household members: spouse Smoking Status: Former smoker alcohol intake: former Exam Initial Vital Signs Initial Vital Signs: Vital Signs Temperature 100.0 F H 06/01/18 09:27 Pulse Rate 112 H 06/01/18 09:27 Respiratory Rate 28 H 06/01/18 09:27 Blood Pressure 113/64 06/01/18 09:27 Pulse Oximetry 84 L 06/01/18 09:27 Const General: cooperative and in distress Orientation: alert and awake HENMT Head: normal to inspection and normocephalic Mouth: other (Patient with a very dry mouth with crusting. Had multiple white lesions consistent with his history of stomatitis) Resp Effort & Inspection: no audible wheezes, labored, respiratory distress and no retractions Auscultation: no rhonchi and no wheezes Cardio Rate: tachycardic Rhythm: regular rhythm Pulses: radial pulses present GI Inspection: non-distended Palpation: soft and No firm Skin Lesions: lesions noted (Other than his mouth) Rashes: rash noted Neuro General: alert, awake and oriented x3 Cognition: normal cognition Sensory Exam: no sensory deficits noted Extrem General: normal to inspection and capillary refill normal Psych Appearance: grossly normal and well kempt Course Orders Ordered: ED Orders 06/01/18 09:52 Arterial Blood Gas Stat 06/01/18 10:29 CT angio chest PE protocol Stat 06/01/18 13:51 Consult to Dietitian, Adult Routine 06/01/18 14:09 MRSA PCR Stat 06/01/18 14:28 Basic Metabolic Panel Stat Lactate (Lactic Acid) Stat Magnesium Stat 06/01/18 15:24 RT Consult Eval and Treat Now 06/01/18 17:03 Urinalysis and Microscopic Stat 06/01/18 17:22 Consult to Dietitian, Adult Routine 06/02/18 05:00 Basic Metabolic Panel Routine CBC manual diff [Complete Blood Count MAN DIFF] Routine Acetaminophen (Tylenol) 650 mg PO Q6HR PRN PRN Reason: As Needed for Fever/Mild Pain Aspirin (Aspirin) 325 mg PO DAILY [facility] Last Admin: 06/01/18 14:50 Dose: 325 mg Atorvastatin Calcium (Lipitor) 60 mg PO BEDTIME JOCELYN Cilostazol (Pletal) 100 mg PO BIDAC [facility] Last Admin: 06/01/18 16:08 Dose: Sodium Chloride (Normal Saline 0.9%) 1,000 mls @ 125 mls/hr IV CONT JOCELYN Last Infusion: 06/01/18 14:10 Dose: 125 mls/hr Infusion: 06/01/18 13:09 Dose: 0 mls/hr Admin: 06/01/18 12:12 Dose: 125 mls/hr Fluconazole (Diflucan) 800 mg in 400 mls @ 100 mls/hr IV NOW ONE Stop: 06/01/18 19:08 Last Admin: 06/01/18 15:29 Dose: 100 mls/hr Cefepime HCl 2 gm/ Sodium (Chloride) 100 mls @ 200 mls/hr IV Q8HR JOCELYN Fluconazole (Diflucan) 400 mg in 200 mls @ 100 mls/hr IV Q24H JOCELYN Potassium Chloride 60 meq/ (Sodium Chloride) 530 mls @ 88.333 mls/hr IV NOW ONE Stop: 06/01/18 21:22 Last Admin: 06/01/18 15:37 Dose: 88.333 mls/hr Magnesium Sulfate (Magnesium Sulfate) 2 gm in 50 mls @ 25 mls/hr IV NOW ONE Stop: 06/01/18 19:38 Last Admin: 06/01/18 17:58 Dose: 25 mls/hr Lorazepam (Ativan) 0.5 mg PO Q6H PRN PRN Reason: Nausea Melatonin (Melatonin) 9 mg PO BEDTIME [facility] Nystatin (Mycostatin Susp) 100,000 unit PO TID PRN PRN Reason: Thrush Last Admin: 06/01/18 14:38 Dose: 100,000 unit Ondansetron HCl (Zofran Odt) 4 mg PO Q6H PRN PRN Reason: Nausea Pantoprazole Sodium (Protonix) 40 mg PO 0600 JOCELYN Last Admin: 06/01/18 14:36 Dose: 40 mg Discontinued Medications Acetaminophen (Tylenol) 975 mg PO NOW ONE Stop: 06/01/18 11:43 Last Admin: 06/01/18 14:10 Dose: Acetaminophen (Tylenol) 650 mg AR NOW ONE Stop: 06/01/18 12:06 Last Admin: 06/01/18 12:08 Dose: 650 mg Sodium Chloride (Normal Saline 0.9%) 1,000 mls @ 1,000 mls/hr IV BOLUS ONE Stop: 06/01/18 10:22 Last Infusion: 06/01/18 14:10 Dose: 0 mls/hr Admin: 06/01/18 09:53 Dose: 1,000 mls/hr Levofloxacin (Levaquin) 750 mg in 150 mls @ 100 mls/hr IV NOW ONE Stop: 06/01/18 13:11 Last Infusion: 06/01/18 14:58 Dose: 0 mls/hr Infusion: 06/01/18 14:10 Dose: 100 mls/hr Infusion: 06/01/18 13:08 Dose: 0 mls/hr Admin: 06/01/18 12:43 Dose: 100 mls/hr Cefepime HCl 2 gm/ Sodium (Chloride) 100 mls @ 200 mls/hr IV NOW ONE Stop: 06/01/18 11:44 Last Infusion: 06/01/18 12:42 Dose: 0 mls/hr Admin: 06/01/18 12:08 Dose: 200 mls/hr Sodium Chloride (Normal Saline 0.9%) 1,000 mls @ 1,000 mls/hr IV BOLUS ONE Stop: 06/01/18 12:51 Last Infusion: 06/01/18 13:09 Dose: 0 mls/hr Admin: 06/01/18 12:08 Dose: 1,000 mls/hr Vital Signs - 8 hr 06/01/18 11:15 06/01/18 11:35 06/01/18 12:08 Temperature 101.9 F H 102.2 F H Pulse Rate 112 H 102 H Respiratory Rate 24 25 H Blood Pressure Blood Pressure [Right Arm] 106/71 106/71 Pulse Oximetry 100 100 06/01/18 12:16 06/01/18 12:45 06/01/18 13:15 Temperature 100.8 F H Pulse Rate 101 H 100 H 100 H Respiratory Rate 26 H 22 20 Blood Pressure 98/61 Blood Pressure [Right Arm] 92/63 99/66 Pulse Oximetry 93 96 93 06/01/18 15:58 Temperature 99.1 F Pulse Rate 105 H Respiratory Rate 20 Blood Pressure 117/68 Blood Pressure [Right Arm] Pulse Oximetry 96 MDM - Weakness Medical Records Attestation: I reviewed the patient's medical records. Lab Data Attestation: I reviewed the patient's lab results. Result diagrams: 06/01/18 09:35 06/01/18 14:28 Lab Results 06/01/18 06/01/18 06/01/18 Range/Units 09:35 09:35 09:35 WBC 0.2 L* (4.5-11.0) X10^3/uL RBC 3.16 L (4.5-5.9) X10^6/uL Hgb 10.7 L (13.5-17.5) g/dL Hct 30.7 L (41-53) % MCV 97.2 (80-100) fL MCH 33.9 (26-34) PG MCHC 34.9 (30-36) % RDW 14.4 (11.6-14.8) % Plt Count 25 L* (150-400) X10^3/uL Neut % (Auto) Not Reportable Lymph % (Auto) Not Reportable Zavala % (Auto) Not Reportable Eos % (Auto) Not Reportable Baso % (Auto) Not Reportable Differential Comment WBC Morphology Comment RBC Morphology Not Reportable Anisocytosis 1+ H ABG pH (7.35-7.45) ABG pCO2 (35-45) mmHg ABG pO2 (80-105) mmHg ABG HCO3 (23-27) mmol/L ABG Total CO2 (23-27) mmol/L ABG O2 Saturation (95-100) % ABG Base Excess (-2-3) mmol/L FiO2 Sodium 134 L (137-145) mmol/L Potassium 2.8 L (3.4-5.1) mmol/L Chloride 93 L (98-107) mmol/L Carbon Dioxide 25 (22-32) mmol/L BUN 18 (9-20) mg/dL Creatinine 1.30 H (0.66-1.25) mg/dL Estimated GFR 53.5 L (>60) mL/min BUN/Creatinine Ratio 13.8 (6-22) Glucose 176 H (80-110) mg/dL Lactate (0.7-2.1) mmol/L Calcium 8.7 (8.4-10.2) mg/dL Magnesium Total Bilirubin 1.6 H (0.2-1.3) mg/dL AST 47 (17-59) IU/L ALT 26 (21-72) IU/L Alkaline Phosphatase 113 (38-126) U/L Total Protein 6.3 (6.3-8.2) g/dL Albumin 3.4 L (3.5-5.0) g/dL Globulin 2.9 (1.7-4.1) g/dL Albumin/Globulin Ratio 1.2 (1.0-2.8) Lipase < 10 L (23-300) U/L Procalcitonin 9.10 H (<0.5) ng/mL Nasal Screen MRSA (PCR) (Negative) 06/01/18 06/01/18 06/01/18 Range/Units 09:35 09:35 09:52 WBC (4.5-11.0) X10^3/uL RBC (4.5-5.9) X10^6/uL Hgb (13.5-17.5) g/dL Hct (41-53) % MCV (80-100) fL MCH (26-34) PG MCHC (30-36) % RDW (11.6-14.8) % Plt Count (150-400) X10^3/uL Neut % (Auto) Lymph % (Auto) Zavala % (Auto) Eos % (Auto) Baso % (Auto) Differential Comment WBC Morphology Comment RBC Morphology Anisocytosis ABG pH 7.53 H (7.35-7.45) ABG pCO2 26.4 L (35-45) mmHg ABG pO2 96 (80-105) mmHg ABG HCO3 22 L (23-27) mmol/L ABG Total CO2 23 (23-27) mmol/L ABG O2 Saturation 98 (95-100) % ABG Base Excess -1.0 (-2-3) mmol/L FiO2 1.0 Sodium (137-145) mmol/L Potassium (3.4-5.1) mmol/L Chloride (98-107) mmol/L Carbon Dioxide (22-32) mmol/L BUN (9-20) mg/dL Creatinine (0.66-1.25) mg/dL Estimated GFR (>60) mL/min BUN/Creatinine Ratio (6-22) Glucose (80-110) mg/dL Lactate 4.9 H (0.7-2.1) mmol/L Calcium (8.4-10.2) mg/dL Magnesium Cancelled Total Bilirubin (0.2-1.3) mg/dL AST (17-59) IU/L ALT (21-72) IU/L Alkaline Phosphatase (38-126) U/L Total Protein (6.3-8.2) g/dL Albumin (3.5-5.0) g/dL Globulin (1.7-4.1) g/dL Albumin/Globulin Ratio (1.0-2.8) Lipase (23-300) U/L Procalcitonin (<0.5) ng/mL Nasal Screen MRSA (PCR) (Negative) 06/01/18 06/01/18 06/01/18 Range/Units 14:09 14:28 14:28 WBC (4.5-11.0) X10^3/uL RBC (4.5-5.9) X10^6/uL Hgb (13.5-17.5) g/dL Hct (41-53) % MCV (80-100) fL MCH (26-34) PG MCHC (30-36) % RDW (11.6-14.8) % Plt Count (150-400) X10^3/uL Neut % (Auto) Lymph % (Auto) Zavala % (Auto) Eos % (Auto) Baso % (Auto) Differential Comment WBC Morphology Comment RBC Morphology Anisocytosis ABG pH (7.35-7.45) ABG pCO2 (35-45) mmHg ABG pO2 (80-105) mmHg ABG HCO3 (23-27) mmol/L ABG Total CO2 (23-27) mmol/L ABG O2 Saturation (95-100) % ABG Base Excess (-2-3) mmol/L FiO2 Sodium 133 L (137-145) mmol/L Potassium 2.5 L* (3.4-5.1) mmol/L Chloride 99 (98-107) mmol/L Carbon Dioxide 24 (22-32) mmol/L BUN 18 (9-20) mg/dL Creatinine 1.10 (0.66-1.25) mg/dL Estimated GFR > 60.0 (>60) mL/min BUN/Creatinine Ratio 16.4 (6-22) Glucose 164 H (80-110) mg/dL Lactate 1.7 (0.7-2.1) mmol/L Calcium 7.6 L (8.4-10.2) mg/dL Magnesium 1.0 L Total Bilirubin (0.2-1.3) mg/dL AST (17-59) IU/L ALT (21-72) IU/L Alkaline Phosphatase (38-126) U/L Total Protein (6.3-8.2) g/dL Albumin (3.5-5.0) g/dL Globulin (1.7-4.1) g/dL Albumin/Globulin Ratio (1.0-2.8) Lipase (23-300) U/L Procalcitonin (<0.5) ng/mL Nasal Screen MRSA (PCR) Negative for mrsa (Negative) Imaging Data Chest x-ray: Radiologist's impression: PROCEDURE: XR CHEST 1V INDICATIONS: Shortness of breath TECHNIQUE: One view of the chest was acquired. COMPARISON: [facility], CT, CT ANGIO CHEST PE PROTOCOL, 06/01/2018, 10:38. [facility], CR, XR CHEST 1V, 04/05/2018, 14:00. FINDINGS: Surgical changes and devices: Left PICC line with the tip projecting in the upper SVC.. Lungs and pleura: No pleural effusions or pneumothorax. Retrocardiac consolidation seen in the left lower lobe which is better evaluated on the same day CT. Mediastinum: Mediastinal contours appear normal. Heart size is normal. Bones and chest wall: No suspicious bony lesions. Overlying soft tissues appear unremarkable. IMPRESSION: Retrocardiac consolidation, better assessed on the comparison same day chest CTA. Please see report As Dictated by: Eddie Coleman M.D. on 06/01/2018 at 10:59 CT scan - chest: Radiologist's impression: PROCEDURE: CT ANGIO CHEST PE PROTOCOL INDICATIONS: Lung cancer, hypoxia, tachycardia, shortness of breath TECHNIQUE: After the administration of intravenous contrast, 2 mm thick sections acquired from the pulmonary apices to the posterior costophrenic angles. 3-dimensional maximum intensity projection (MIP) coronal and sagittal reformats were then acquired through the thorax. For radiation dose reduction, the following was used: automated exposure control, adjustment of mA and/or kV according to patient size. COMPARISON: [facility], CT, CT VELASQUEZ, 05/06/2018, 12:13. [facility], MR, MR HEAD/BRAIN WO/W CON, 05/04/2018, 15:47. [facility], CR, CHEST 1 VIEW, 02/2009, 12:56. [facility], CR, XR CHEST 1V, 06/01/2018, 9:27. [facility], CT , CT CHEST ABD PEL W CON, 05/04/2018, 15:32. [facility], CT, CT BIOPSY LUNG LT, 2017, 10:56. [facility], CR, XR CHEST 1V, 03/24/2018, 17:20. FINDINGS: Image quality: Excellent. Pulmonary arteries: Pulmonary arteries are normal in size, and demonstrate no intraluminal filling defects to suggest central pulmonary embolism. Lungs and pleura: Nodular patchy areas of opacity are present within the lung bases. The previously identified rounded nodular opacity is also once again identified in the right base, partially secured by new overlying opacities. Similar-appearing opacities are present in the right middle and upper lobe, although much less prominent. Mediastinum: Heart size is normal, without pericardial effusion. No mediastinal or hilar adenopathy. Thoracic aorta is normal in caliber and enhancement. Esophagus is normal in caliber, with mild to moderate hiatal hernia. Bones and chest wall: No suspicious bony lesions. Ribs and thoracic spine appear intact throughout. Thyroid gland is unremarkable. No axillary or supraclavicular adenopathy. Borderline enlarged lymph nodes are noted within the visualized lower neck. These areas are not included completely within the [id number] on prior exams. Abdomen: Pneumobilia present. This is less prominent when compared to prior exam. Otherwise, visualized upper abdominal solid organs appear normal in the early arterial phase of enhancement. IMPRESSION: 1. No pulmonary embolism. 2. Patchy nodular opacities within the lungs bilaterally predominantly within the bases as above. Overall appearance is suggestive of infection/inflammation such as pneumonia. Recommend correlation of potential atypical infection such as fungal or mycobacterial. 3. Partially obscured left lower lobe mass, appearing unchanged compared to prior exam and consistent with given history of known malignancy. 4. Borderline enlargement lower neck lymph nodes as above, possibly reactive in nature. Recommend interval followup given history of neoplasm. Dictated by: Franca Garcia M.D. on 06/01/2018 at 11:17 Approved by: Franca Garcia M.D. on 06/01/2018 at 11:34 ECG Data Attestation: I personally reviewed and interpreted this ECG as follows: Prior ECG tracings: not available for review Interpretation: Sinus tachycardia Ventricular rate of 108 Normal axis Normal QRS Nonspecific ST T wave changes MDM Narrative Medical decision making narrative: Patient arrived in respiratory distress and hypoxic and tachycardia. CTA of his chest showed no signs of pulmonary embolism but did show potential signs of pneumonia. During his stay here in the emergency department patient did develop a fever. He was afebrile upon arrival. His white blood cell count was low and is consistent with the white blood cell count drawn a couple days ago. Patient was given antibiotics here in the emergency department. The manual differential was not available during his ER visit however given his low white blood cell count there is concern for neutropenia. Patient was able to be weaned down from the non-rebreather to a nasal cannula. Blood cultures were ordered. Patient was given Tylenol for his fever. He did express again the desire to be full code to me. Discussed the case with Dr. Ashley who accepts the patient in admission for further evaluation treatment. I did discuss this course of action with the patient his was at bedside expressed understanding and agreement. Discharge Plan Departure Patient Disposition: Admitted As Inpatient Clinical Impression: Pneumonia, Lung cancer, Neutropenic fever Discharge Date/Time: 06/01/18 13:21 Interventions: ED Discharge Assessment Last Done: 06/01/18 13:13 Admit Date/Time: 06/01/18 12:15 Admit Provider: Marlyn Ashley
[2018-06-01] MEDS: SODIUM CHLORIDE 0.9% 1,000 ML 1000 ML IV ×2 (09:53→12:08)
[2018-06-01 10:00] LABS: Hematocrit 30.7 % (41-53); Hemoglobin 10.7 g/dL (13.5-17.5); Mean Corpuscular HGB Conc 34.9 % (30-36); Mean Corpuscular Hemoglobin 33.9 PG (26-34); Mean Corpuscular Volume 97.2 fL (80-100); Red Blood Cell Count 3.16 X10^6/uL (4.5-5.9); Red Cell Distribution Width 14.4 % (11.6-14.8)
[2018-06-01 10:08] LABS: HCO3 ABG 22 mmol/L (23-27); Oxygen Saturation ABG 98 % (95-100); PCO2 ABG 26.4 mmHg (35-45); PO2 ABG 96 mmHg (80-105); TCO2 ABG 23 mmol/L (23-27); pH ABG 7.53 (7.35-7.45)
[2018-06-01 10:09] LABS: Lactate (Lactic Acid) 4.9 mmol/L (0.7-2.1)
[2018-06-01 10:11] LABS: Alanine Aminotransferase 26 IU/L (21-72); Albumin 3.4 g/dL (3.5-5.0); Albumin Globulin Ratio 1.2 (1.0-2.8); Alkaline Phosphatase 113 U/L (38-126); Aspartate Aminotransferase 47 IU/L (17-59); BUN Creatinine Ratio 13.8 (6-22); Bilirubin Total 1.6 mg/dL (0.2-1.3); Blood Urea Nitrogen 18 mg/dL (9-20); Calcium 8.7 mg/dL (8.4-10.2); Carbon Dioxide 25 mmol/L (22-32); Chloride 93 mmol/L (98-107); Estimated Glomerular Filt Rate 53.5 mL/min (>60); Globulin 2.9 g/dL (1.7-4.1); Glucose 176 mg/dL (80-110); HEMOLYSIS < 15 (0-50); Potassium 2.8 mmol/L (3.4-5.1); Sodium 134 mmol/L (137-145); Total Protein 6.3 g/dL (6.3-8.2)
[2018-06-01 10:18] LABS: Platelet Count 25 X10^3/uL (150-400)
[2018-06-01 10:21] LABS: Lipase < 10 U/L (23-300)
[2018-06-01 10:27] LABS: Anisocytosis 1+
--- NOTE | 2018-06-01 10:29 | DI.CT.S_ITS ---
PROCEDURE: CT ANGIO CHEST PE PROTOCOL INDICATIONS: Lung cancer, hypoxia, tachycardia, shortness of breath TECHNIQUE: After the administration of intravenous contrast, 2 mm thick sections acquired from the pulmonary apices to the posterior costophrenic angles. 3-dimensional maximum intensity projection (MIP) coronal and sagittal reformats were then acquired through the thorax. For radiation dose reduction, the following was used: automated exposure control, adjustment of mA and/or kV according to patient size. COMPARISON: [facility], CT, CT VELASQUEZ, 05/06/2018, 12:13. [facility], MR, MR HEAD/BRAIN WO/W CON, 05/04/2018, 15:47. [facility], CR, CHEST 1 VIEW, 07/27/2009, 12:56. [facility], CR, XR CHEST 1V, 06/01/2018, 9:27. [facility], CT, CT CHEST ABD PEL W CON, 05/04/2018, 15:32. [facility], CT, CT BIOPSY LUNG LT, 04/05/2018, 10:56. [facility], CR, XR CHEST 1V, 03/24/2018, 17:20. FINDINGS: Image quality: Excellent. Pulmonary arteries: Pulmonary arteries are normal in size, and demonstrate no intraluminal filling defects to suggest central pulmonary embolism. Lungs and pleura: Nodular patchy areas of opacity are present within the lung bases. The previously identified rounded nodular opacity is also once again identified in the right base, partially secured by new overlying opacities. Similar-appearing opacities are present in the right middle and upper lobe, although much less prominent. Mediastinum: Heart size is normal, without pericardial effusion. No mediastinal or hilar adenopathy. Thoracic aorta is normal in caliber and enhancement. Esophagus is normal in caliber, with mild to moderate hiatal hernia. Bones and chest wall: No suspicious bony lesions. Ribs and thoracic spine appear intact throughout. Thyroid gland is unremarkable. No axillary or supraclavicular adenopathy. Borderline enlarged lymph nodes are noted within the visualized lower neck. These areas are not included completely within the [id number] on prior exams. Abdomen: Pneumobilia present. This is less prominent when compared to prior exam. Otherwise, visualized upper abdominal solid organs appear normal in the early arterial phase of enhancement. IMPRESSION: 1. No pulmonary embolism. 2. Patchy nodular opacities within the lungs bilaterally predominantly within the bases as above. Overall appearance is suggestive of infection/inflammation such as pneumonia. Recommend correlation of potential atypical infection such as fungal or mycobacterial. 3. Partially obscured left lower lobe mass, appearing unchanged compared to prior exam and consistent with given history of known malignancy. 4. Borderline enlargement lower neck lymph nodes as above, possibly reactive in nature. Recommend interval followup given history of neoplasm. Dictated by: Franca Garcia M.D. on 06/01/2018 at 11:17 Approved by: Franca Garcia M.D. on 06/01/2018 at 11:34
[2018-06-01 10:32] LABS: Add Manual Diff / Slide Review NO
[2018-06-01 10:35] LABS: White Blood Cell Count 0.2 X10^3/uL (4.5-11.0)
[2018-06-01] MEDS: ACETAMINOPHEN 650 MG SUPP PR (12:08)
[2018-06-01] MEDS: CEFEPIME 2 GM in SODIUM CHLORIDE 0.9% 100 ML 200 ML IV ×2 (12:08→22:21)
[2018-06-01] MEDS: SODIUM CHLORIDE 0.9% 1,000 ML 125 ML IV (12:12)
--- NOTE | 2018-06-01 12:17 | PC.NURSE ---
pt weaned off nrb, pt sats are 94 percent, on oxygen at 6l nc. pt is with a poor cough. very thick secretions.
[2018-06-01] MEDS: levoFLOXacin 750 MG/150 ML PIGGYBACK 100 MG IV (12:43)
[2018-06-01 13:50] LABS: Reflexed Lactate in 2 Hours Y
[2018-06-01] MEDS: PANTOPRAZOLE 40 MG TABLET PO (14:36)
[2018-06-01] MEDS: NYSTATIN 100,000 UNIT/ML ORAL SUSP UDC 100000 UNIT PO (14:38)
--- NOTE | 2018-06-01 14:46 | PC.ADMIT ---
Admission Note: Patient to room 104 at 1315 from ER. Transferred via slider board to bed. Alert and oriented. Speech is difficult to understand due to mouth sores r/t chemo. Last chemo was about 1.5 wks ago. Lizzette at bedside and assisted in admission questions. Mouth moisturizer applied. Lungs coarse bilaterally, coarse cough, nonproductive. Oxygen sats 93-95% on 6L NC. Denies SOB, denies pain. Call light within reach. Oriented to call light/bed/TV controls. left with all patient belongings. The patient,Andrew Alexander,77 y/o, was given written information regarding hospital policies, unit procedures and contact persons. Patient's smoking status: Former smoker. Vital Signs - 8 hr 06/01/18 09:27 06/01/18 10:02 06/01/18 10:07 Temperature 100.0 F H Pulse Rate 112 H 107 H Respiratory Rate 28 H 32 H 36 H Blood Pressure 113/64 Blood Pressure [Right Arm] 99/64 Pulse Oximetry 84 L 100 86 L 06/01/18 11:15 06/01/18 11:35 06/01/18 12:08 Temperature 101.9 F H 102.2 F H Pulse Rate 112 H 102 H Respiratory Rate 24 25 H Blood Pressure Blood Pressure [Right Arm] 106/71 106/71 Pulse Oximetry 100 100 06/01/18 12:16 06/01/18 12:45 06/01/18 13:15 Temperature 100.8 F H Pulse Rate 101 H 100 H 100 H Respiratory Rate 26 H 22 20 Blood Pressure 98/61 Blood Pressure [Right Arm] 92/63 99/66 Pulse Oximetry 93 96 93
[2018-06-01] MEDS: ASPIRIN 325 MG TABLET PO (14:50)
[2018-06-01 14:53] LABS: BUN Creatinine Ratio 16.4 (6-22); Blood Urea Nitrogen 18 mg/dL (9-20); Calcium 7.6 mg/dL (8.4-10.2); Carbon Dioxide 24 mmol/L (22-32); Chloride 99 mmol/L (98-107); Estimated Glomerular Filt Rate > 60.0 mL/min (>60); Glucose 164 mg/dL (80-110); HEMOLYSIS < 15 (0-50); Lactate (Lactic Acid) 1.7 mmol/L (0.7-2.1); Sodium 133 mmol/L (137-145)
[2018-06-01 15:07] LABS: Potassium 2.5 mmol/L (3.4-5.1)
--- NOTE | 2018-06-01 15:17 | P.HP_ITS ---
History of Present Illness Date Patient Seen: 06/01/18 Time Patient Seen: 12:45 Chief complaint: Dehydration Narrative: Patient is a 77-year-old man with small cell lung cancer currently undergoing chemotherapy and radiation, mucositis, hypertension, anemia, and history of CVA who presented with fever, decreased p.o. intake, and cough. The patient was unable to communicate well due to his significant buccal mucositis, therefore the history was obtained from his . The pts reports that over the weekend it was becoming increasingly difficult for him to eat due to his mouth issues. She was concerned that he was becoming dehydrated as a result. Yesterday evening, he developed a fever to 102F. This morning, the fever persisted in the 101s. The pt then was acting very delirious, and had a BM in the bed, which was unusual for him. Due to his confusion and fever, she called EMS to have him evaluated in the ER. The pts does report that he has had a worsening cough for the past 2 weeks. The cough is intermittently productive of clear yellow phlegm. Prior to last night, he has not had any fevers. He has not had any increased work of breathing. He denies any issues with urination or BMs. He has been more fatigued recently due to the chemotherapy and radiation. Patient History Medical History Small cell lung cancer (Acute) CVA (cerebral vascular accident) (Acute) Hypertension (Acute) Anemia (Acute) GERD (gastroesophageal reflux disease) (Chronic ~1996) Pancreatitis (Chronic ~2001) Prostate cancer (Chronic ~2004) Surgical History Anesthesia (Resolved) Whipple disease (Resolved ~2011) Status post cholecystectomy (~2010) Status post laminectomy Status post radical cystoprostatectomy (~2004) Family & Social History Family History: Reviewed 06/01/18 by Marlyn Ashley MD Social History: household members spouse Safety & Behavioral: Feels Safe in Current Yes Environment Been Physically Hurt or No Threatened By a Person Suicidal Ideation Description None Suicide Plan Description No Plan Tobacco & Substance use: Tobacco type cigarettes Smoking Status Former smoker alcohol intake former Substance Use Type does not use Meds Home Medications Medication Instructions Recorded Confirmed Type multivitamin 1 tab PO DAILY #0 09/12/11 06/01/18 History cyanocobalamin (vitamin B-12) 3,000 mcg PO QAM #0 08/26/16 06/01/18 History aspirin 325 mg PO QDAY #0 07/29/17 06/01/18 History atorvastatin 60 mg PO HS #45 tab 10/29/17 06/01/18 Rx pantoprazole [Protonix] 40 mg PO QDAY #90 mg 11/20/17 06/01/18 Rx ondansetron [Zofran ODT] 4 mg PO Q6-8H PRN #30 tab 05/20/18 06/01/18 Rx Fish Oil 1200mg/[place] 3 720mg 1 cap PO DAILY 06/01/18 06/01/18 History Magic Mouthwash 1 dose PO TID PRN 06/01/18 06/01/18 History calcium carbonate-vitamin D3 1 cap PO DAILY 06/01/18 06/01/18 History [Calcium 600 + D(3)] cilostazol 1 tab PO BIDAC 06/01/18 06/01/18 History lorazepam 0.5 mg PO Q6-8H PRN 06/01/18 06/01/18 History melatonin 10 mg PO BEDTIME PRN 06/01/18 06/01/18 History Allergies Allergy/AdvReac Type Severity Reaction Status Date / Time morphine [MORPHINE] Allergy Severe HALLUCINATI Verified 05/30/18 11:23 ONS thimerosal [THIMEROSAL] Allergy Mild PANCHAL Verified 05/30/18 11:23 ketamine [KETAMINE] AdvReac Unknown BECAME Verified 05/30/18 11:23 ANGRY; YELLING AT ER STAFF AND DOESN'T REMEMBER. Review of Systems Constitutional Constitutional: Reports fever(s), Denies headache(s), Reports lack of energy, Denies night sweats, Denies snoring and Reports weight loss ENT Ears, Nose, Mouth, and Throat: Yes bleeding gums, Yes change in voice, Yes difficulty swallowing, Yes dry mouth, No headache(s), Yes lip swelling, Yes mouth lesions, Yes mouth pain, No nasal congestion, No neck pain, No pain with swallowing, No sinus pressure, Yes sore throat and Yes tongue swelling Cardiovascular Cardiovascular: Denies chest pain, Denies fainting, Denies fast heart rate, Denies irregular heart rhythm, Denies shortness of breath and Denies shortness of breath when lying down Respiratory Respiratory: Reports chest congestion, Reports cough, Reports excessive phlegm production, Denies pain with cough, Denies dyspnea, Denies snoring and Denies wheezing Gastrointestinal Gastrointestinal: Denies abdominal pain, Denies change in bowel habits, Reports dysphagia and Denies odynophagia Genitourinary Genitourinary: Denies dysuria, Denies urinary frequency, Denies urinary incontinence and Denies urinary urgency Musculoskeletal Musculoskeletal: Denies neck pain Neurologic Neurologic: Denies syncope and Denies headache(s) Allergic/Immunologic Allergic/Immunologic: Reports lip swelling, Reports tongue swelling and Denies wheezing Exam Vital Signs (past 8 hours): - 06/01/18 09:27 06/01/18 10:02 06/01/18 10:07 Temperature 100.0 F H Pulse Rate 112 H 107 H Respiratory Rate 28 H 32 H 36 H Blood Pressure 113/64 Blood Pressure [Right Arm] 99/64 Pulse Oximetry 84 L 100 86 L 06/01/18 11:15 06/01/18 11:35 06/01/18 12:08 Temperature 101.9 F H 102.2 F H Pulse Rate 112 H 102 H Respiratory Rate 24 25 H Blood Pressure Blood Pressure [Right Arm] 106/71 106/71 Pulse Oximetry 100 100 06/01/18 12:16 06/01/18 12:45 06/01/18 13:15 Temperature 100.8 F H Pulse Rate 101 H 100 H 100 H Respiratory Rate 26 H 22 20 Blood Pressure 98/61 Blood Pressure [Right Arm] 92/63 99/66 Pulse Oximetry 93 96 93 Oxygen Delivery Method Nasal Cannula Oxygen Flow Rate 6 Narrative Exam Narrative: GEN - alert, cooperative and no distress, unable to speak clearly due to inability to open mouth well, enlarged lips, and lack of dentures , appears chronically ill HEENT - normocephalic and atraumatic, sclera white, slightly dry mucus membranes , lips grossly enlarged with significant crusting and cracking at bilateral angles of mouth and unable to open mouth fully NECK - FROM, no adenopathy, no JVD HEART - RRR, S1, S2 normal, no S3 or S4, grade 4/6 holosystolic murmur LUNGS - symmetric chest rise, no accessory muscles, bilateral lower lobes with crackles present ABD - flat, nondistended, normal bowel sounds, soft, nontender and no hepatomegaly, splenomegaly or masses EXT - no cyanosis, clubbing or edema SKIN - no rashes or suspicious lesions NEURO - no gross deficits Objective Labs Result Diagrams: 06/01/18 09:35 06/01/18 14:28 Labs: Laboratory Results - last 24 hr 06/01/18 06/01/18 06/01/18 09:35 09:35 09:35 WBC 0.2 L* RBC 3.16 L Hgb 10.7 L Hct 30.7 L MCV 97.2 MCH 33.9 MCHC 34.9 RDW 14.4 Plt Count 25 L* Neut % (Auto) Not Reportable Lymph % (Auto) Not Reportable [place] % (Auto) Not Reportable Eos % (Auto) Not Reportable Baso % (Auto) Not Reportable Differential Comment WBC Morphology Comment RBC Morphology Not Reportable Anisocytosis 1+ H ABG pH ABG pCO2 ABG pO2 ABG HCO3 ABG Total CO2 ABG O2 Saturation ABG Base Excess FiO2 Sodium 134 L Potassium 2.8 L Chloride 93 L Carbon Dioxide 25 BUN 18 Creatinine 1.30 H Estimated GFR 53.5 L BUN/Creatinine Ratio 13.8 Glucose 176 H Lactate Calcium 8.7 Total Bilirubin 1.6 H AST 47 ALT 26 Alkaline Phosphatase 113 Total Protein 6.3 Albumin 3.4 L Globulin 2.9 Albumin/Globulin Ratio 1.2 Lipase < 10 L Procalcitonin 9.10 H 06/01/18 06/01/18 06/01/18 09:35 09:52 14:28 WBC RBC Hgb Hct MCV MCH MCHC RDW Plt Count Neut % (Auto) Lymph % (Auto) [place] % (Auto) Eos % (Auto) Baso % (Auto) Differential Comment WBC Morphology Comment RBC Morphology Anisocytosis ABG pH 7.53 H ABG pCO2 26.4 L ABG pO2 96 ABG HCO3 22 L ABG Total CO2 23 ABG O2 Saturation 98 ABG Base Excess -1.0 FiO2 1.0 Sodium 133 L Potassium 2.5 L* Chloride 99 Carbon Dioxide 24 BUN 18 Creatinine 1.10 Estimated GFR > 60.0 BUN/Creatinine Ratio 16.4 Glucose 164 H Lactate 4.9 H Calcium 7.6 L Total Bilirubin AST ALT Alkaline Phosphatase Total Protein Albumin Globulin Albumin/Globulin Ratio Lipase Procalcitonin 06/01/18 14:28 WBC RBC Hgb Hct MCV MCH MCHC RDW Plt Count Neut % (Auto) Lymph % (Auto) [place] % (Auto) Eos % (Auto) Baso % (Auto) Differential Comment WBC Morphology Comment RBC Morphology Anisocytosis ABG pH ABG pCO2 ABG pO2 ABG HCO3 ABG Total CO2 ABG O2 Saturation ABG Base Excess FiO2 Sodium Potassium Chloride Carbon Dioxide BUN Creatinine Estimated GFR BUN/Creatinine Ratio Glucose Lactate 1.7 Calcium Total Bilirubin AST ALT Alkaline Phosphatase Total Protein Albumin Globulin Albumin/Globulin Ratio Lipase Procalcitonin Assessment & Plan (1) Sepsis: Problem details: Likely due to pneumonia. Lactic acid normalized after fluid resuscitation. No evidence of end-organ damage. Qualifiers: Sepsis type: sepsis due to unspecified organism Qualified Code(s): A41.9 - Sepsis, unspecified organism Current visit: Yes Status: Acute (2) Pneumonia: Problem details: Community acquired. Due to immunosuppression, and with results of xray, cannot rule-out fungal cause as well as bacterial. Requiring 5L O2 via NC. Qualifiers: Aspiration pneumonia type: Laterality: unspecified laterality Lung location: unspecified part of lung Pneumonia type: due to unspecified organism Qualified Code(s): J18.9 - Pneumonia, unspecified organism Current visit: Yes Status: Acute (3) Neutropenic fever: Problem details: Neutrophil count not obtainable on initial labs, but presumed low with overall count so low. Will complete manual count in the AM. Current visit: Yes Status: Acute (4) Mucositis (ulcerative) due to antineoplastic therapy: Problem details: Biopsy of tongue completed previously was negative for malignancy. F/U with ENT scheduled. Leukoplakia present as well. Current visit: No Status: Acute (5) Small cell lung cancer: Problem details: Relatively new diagnosis. Currently undergoing chemotherapy and radiation treatments. Current visit: Yes Status: Acute (6) Hypertension: Problem details: BP currently low-normal. Qualifiers: Hypertension type: essential hypertension Qualified Code(s): I10 - Essential (primary) hypertension Current visit: Yes Status: Acute (7) Hypokalemia: Current visit: Yes Status: Acute (8) JANETTE (acute kidney injury): Problem details: Likely due to dehydration Current visit: Yes Status: Acute (9) Anemia: Problem details: Relatively stable Current visit: Yes Status: Acute Plan: Assessment/Plan Narrative: 1) Sepsis due to pneumonia with neutropenic fever: - Cefepime 2g q8hr - Fluconazole 800mg IV today, 400mg IV qday starting tomorrow - Continue mIVF at 125cc/hr - IVF bolus if recurring tachycardia - RT consulted, appreciate care. O2 titrated as needed. - CBC with manual diff in the AM 2) Mucositis with leukoplakia: - Magic mouthwash - Frequent mouth rinses, lip balm, oral care 3) Small cell lung cancer: - Oncology made aware of admission 4) Hypokalemia: - Potassium supplementation, 60mEq IV - Repeat potassium after complete 5) JANETTE: - IVF as above - Repeat BMP in the AM 6) Anemia: - Will continue to trend FEN: Full liquid diet due to mucositis DVT prophylaxis: SCDs due to thrombocytopenia Dispo: Pt will require at least 2 additional midnights due to severity of illness with neutropenic fever. Quality VTE Deep Vein Thrombosis/Pulmonary Embolism Present on Admission: No
[2018-06-01] MEDS: PIGGYBACK IV (15:29)
[2018-06-01] MEDS: FLUCONAZOLE 800 MG/400 ML IV (15:29)
[2018-06-01] MEDS: POTASSIUM CHLORIDE 60 MEQ in SODIUM CHLORIDE 0.9% 500 ML 88.333 ML IV (15:37)
[2018-06-01] MEDS: MAGNESIUM SULFATE 2 GM/50 ML PIGGYBACK IV (17:58)
--- NOTE | 2018-06-01 19:33 | PC.NURSE ---
Addendum entered by Krystal Mendez R.N. 06/01/18 22:29: 2100 - Pt BP 88/59 hr 102[address] Pt asymptomatic. Dr. Ashley notified. Reviewed. Urine lab and output. Orders obtained. 2229 - Following Bolus. BP 107/59. Brief dry. Pt continues to deny lightheadedness, dizziness or pain. Call light in reach. Original Note: Pt out of bed to commode, plus inc. Generalized weakness. FWW and gaitbelt. Oral care provided, Significant oral tenderness. O2 3l NC sats 91% with activity. Positioned for comfort, offered side lying, pt states I am able to turn over myself. Reviewed safety and call light use. Call light in reach.
[2018-06-01 19:37] LABS: Bacteria Urine None Seen
[2018-06-01 19:39] LABS: Appearance Urine UA SL CLOUDY; Bilirubin Urine UA NEGATIVE (NEGATIVE); Color Urine UA YELLOW; Glucose Urine UA NEGATIVE (Normal); Ketones Urine UA NEGATIVE (NEGATIVE); Leukocyte Esterase Urine UA NEGATIVE (NEGATIVE); Nitrite Urine UA Negative (Negative); Occult Blood Urine UA 3+ (Negative); Protein Urine UA 2+ (Negative); Specific Gravity Urine UA <=1.005 (1.000-1.035); Urobilinogen Urine UA 0.2 E.U./dL (0.2)
[2018-06-01 19:58] LABS: Amorphous Sediment Urine 1+; RBC Urine 0-1/HPF (0-5/HPF); Squamous Epithelial Cell Urine 0-1 /HPF; WBC Urine 1-5/HPF (0-5/HPF)
[2018-06-01 19:59] LABS: Culture Indicated Urine Cult Not Indicated
[2018-06-01] MEDS: SODIUM CHLORIDE 0.9% 500 ML IV (21:01)
[2018-06-01] MEDS: MELATONIN 3 MG TABLET 9 MG PO (21:02)
[2018-06-01] MEDS: ATORVASTATIN 20 MG TABLET 60 MG PO (21:02)
[2018-06-01 23:00] LABS: Carbon Dioxide 21 mmol/L (22-32); Chloride 103 mmol/L (98-107); HEMOLYSIS < 15 (0-50); Potassium 3.3 mmol/L (3.4-5.1); Sodium 134 mmol/L (137-145)
[2018-06-02] VITALS (8 sets, daily range): BP systolic 96–104; BP diastolic 55–65; PULSE 110–119; RESP 18–20; TEMP 37.2–38.2; O2SAT 86–98; BMI 22.2
[2018-06-02] MEDS: NYSTATIN 100,000 UNIT/ML ORAL SUSP UDC 100000 UNIT PO ×3 (01:00→21:27)
[2018-06-02] MEDS: LORazepam 0.5 MG TABLET PO (01:00)
--- NOTE | 2018-06-02 02:11 | PC.NURSE ---
0100-Patient up to BSC, 1-2 person assist, diarrhea continues, incontinent small urine. PRN PO Nystatin and 0.5mg PO Ativan given. ST 110-120s, SpO2 92-98% on 3L NC, RR 20s.
[2018-06-02] MEDS: ONDANSETRON 4 MG ODT PO (03:39)
[2018-06-02] MEDS: SODIUM CHLORIDE 0.9% 1,000 ML 125 ML IV (03:46)
[2018-06-02] MEDS: CEFEPIME 2 GM in SODIUM CHLORIDE 0.9% 100 ML 200 ML IV ×3 (05:11→21:28)
[2018-06-02 05:42] LABS: Hematocrit 26.6 % (41-53); Hemoglobin 9.3 g/dL (13.5-17.5); Mean Corpuscular HGB Conc 35.1 % (30-36); Mean Corpuscular Hemoglobin 34.1 PG (26-34); Mean Corpuscular Volume 97.2 fL (80-100); Red Blood Cell Count 2.74 X10^6/uL (4.5-5.9); Red Cell Distribution Width 14.4 % (11.6-14.8)
[2018-06-02 05:47] LABS: White Blood Cell Count 0.3 X10^3/uL (4.5-11.0)
[2018-06-02 05:48] LABS: Platelet Count 29 X10^3/uL (150-400)
[2018-06-02 05:51] LABS: Blood Urea Nitrogen 22 mg/dL (9-20); Calcium 7.3 mg/dL (8.4-10.2); Carbon Dioxide 21 mmol/L (22-32); Chloride 104 mmol/L (98-107); Estimated Glomerular Filt Rate > 60.0 mL/min (>60); Glucose 109 mg/dL (80-110); HEMOLYSIS < 15 (0-50); Potassium 3.1 mmol/L (3.4-5.1); Sodium 135 mmol/L (137-145)
[2018-06-02] MEDS: PANTOPRAZOLE 40 MG TABLET PO (06:34)
[2018-06-02] MEDS: POTASSIUM CHLORIDE 20 MEQ in SODIUM CHLORIDE 0.9% 1,000 ML 125 MEQ IV ×2 (08:25→19:26)
[2018-06-02] MEDS: SODIUM CHLORIDE 0.9% 500 ML 1000 ML IV (08:30)
[2018-06-02 08:51] LABS: Neutrophils Absolute Manual 36 /uL (3000-5900); Total Cells Counted 50
--- NOTE | 2018-06-02 08:57 | CM.DANOTE ---
DCP: Case received, EMR reviewed and met with patient. Introduced self and role. DCP template completed with info currently available. Pt is an 84 year old male who admitted yesterday evening to the care of the hospitalist team. PCP Dr. Sprague Payer: confirmed Medicare/[facility] Pt admitted with symptoms of weakness. Patient lives at home currently, and has been indepedent. P: Will continue to check in with patient, has daughter that lives in [place] that is supportive. Pricilla Canchola RN/Blood Bank Calendar Control Clerk
[2018-06-02 10:19] LABS: Magnesium 1.5 mg/dL (1.6-2.3)
--- NOTE | 2018-06-02 11:27 | P.PN_ITS ---
Subjective Date Patient Seen: 06/02/18 Time Patient Seen: 08:00 Interval history: This morning the pt reports feeling moderately improved. He denies any chest pain or significant SOB. He continues to feel weak. He had no fevers or chills overnight. His cough is somewhat improved. His mouth/lips are feeling better, and he was able to eat most of his liquid diet last night. Exam Vital Signs (past 8 hours): - 06/02/18 03:50 06/02/18 07:53 06/02/18 11:06 Temperature 98.9 F 100.8 F H Pulse Rate 116 H 119 H Respiratory Rate 20 20 Blood Pressure 101/60 98/60 Pulse Oximetry 98 94 96 Oxygen Delivery Method Room Air Oxygen Flow Rate 3 Narrative Exam Narrative: GEN - NAD, sitting comfortably in bed, speaking more clearly than yesterday HEENT - normocephalic and atraumatic, sclera white, moist mucus membranes, lips cracking less compared to yesterday and able to open mouth further HEART - RRR, S1, S2 normal, no S3 or S4, grade 4/6 holosystolic murmur LUNGS - symmetric chest rise, no accessory muscles, bilateral lower lobes with crackles present stable from yesterday EXT - no cyanosis, clubbing or edema Objective Labs Result Diagrams: 06/02/18 05:10 06/02/18 05:10 Labs: Laboratory Results - last 24 hr 06/01/18 06/01/18 06/01/18 09:35 14:09 14:28 WBC RBC Hgb Hct MCV MCH MCHC RDW Plt Count Total Counted Seg Neutrophils % Lymphocytes % (Manual) Monocytes % (Manual) Metamyelocytes % Myelocytes % Neutrophils # (Manual) RBC Morphology Sodium 133 L Potassium 2.5 L* Chloride 99 Carbon Dioxide 24 BUN 18 Creatinine 1.10 Estimated GFR > 60.0 BUN/Creatinine Ratio 16.4 Glucose 164 H Lactate Calcium 7.6 L Magnesium Cancelled 1.0 L Urine Color Urine Appearance Urine pH Ur Specific [place] Urine Protein Urine Glucose (UA) Urine Ketones Urine Occult Blood Urine Nitrate Urine Bilirubin Urine Urobilinogen Ur Leukocyte Esterase Urine RBC Urine WBC Ur Squamous Epith Cells Amorphous Sediment Urine Bacteria Ur Culture Indicated? Micro UA Comment Nasal Screen MRSA (PCR) Negative for mrsa 06/01/18 06/01/18 06/01/18 14:28 19:30 22:25 WBC RBC Hgb Hct MCV MCH MCHC RDW Plt Count Total Counted Seg Neutrophils % Lymphocytes % (Manual) Monocytes % (Manual) Metamyelocytes % Myelocytes % Neutrophils # (Manual) RBC Morphology Sodium 134 L Potassium 3.3 L Chloride 103 Carbon Dioxide 21 L BUN Creatinine Estimated GFR BUN/Creatinine Ratio Glucose Lactate 1.7 Calcium Magnesium Urine Color Yellow Urine Appearance Sl cloudy Urine pH 6.0 Ur Specific [place] <=1.005 Urine Protein 2+ H Urine Glucose (UA) Negative Urine Ketones Negative Urine Occult Blood 3+ H Urine Nitrate Negative Urine Bilirubin Negative Urine Urobilinogen 0.2 Ur Leukocyte Esterase Negative Urine RBC 0-1/hpf Urine WBC 1-5/hpf Ur Squamous Epith Cells 0-1 /hpf Amorphous Sediment 1+ Urine Bacteria None seen Ur Culture Indicated? Cult not indicated Micro UA Comment Not Reportable Nasal Screen MRSA (PCR) 06/02/18 06/02/18 05:10 05:10 WBC 0.3 L* RBC 2.74 L Hgb 9.3 L Hct 26.6 L MCV 97.2 MCH 34.1 H MCHC 35.1 RDW 14.4 Plt Count 29 L* Total Counted 50 Seg Neutrophils % 12.0 L Lymphocytes % (Manual) 44.0 Monocytes % (Manual) 34.0 H Metamyelocytes % 2.0 H Myelocytes % 8.0 H Neutrophils # (Manual) 36 L RBC Morphology . Sodium 135 L Potassium 3.1 L Chloride 104 Carbon Dioxide 21 L BUN 22 H Creatinine 1.10 Estimated GFR > 60.0 BUN/Creatinine Ratio 20.0 Glucose 109 Lactate Calcium 7.3 L Magnesium 1.5 L Urine Color Urine Appearance Urine pH Ur Specific [place] Urine Protein Urine Glucose (UA) Urine Ketones Urine Occult Blood Urine Nitrate Urine Bilirubin Urine Urobilinogen Ur Leukocyte Esterase Urine RBC Urine WBC Ur Squamous Epith Cells Amorphous Sediment Urine Bacteria Ur Culture Indicated? Micro UA Comment Nasal Screen MRSA (PCR) Assessment & Plan (1) Sepsis: Problem details: Likely due to pneumonia. Lactic acid normalized after fluid resuscitation. No evidence of end-organ damage. Stable now. Qualifiers: Sepsis type: sepsis due to unspecified organism Qualified Code(s): A41.9 - Sepsis, unspecified organism Current visit: Yes Status: Acute (2) Pneumonia: Problem details: Community acquired. Due to immunosuppression, and with results of xray, cannot rule-out fungal cause as well as bacterial. Requiring 3L O2 via NC. Qualifiers: Aspiration pneumonia type: Laterality: unspecified laterality Lung location: unspecified part of lung Pneumonia type: due to unspecified organism Qualified Code(s): J18.9 - Pneumonia, unspecified organism Current visit: Yes Status: Acute (3) Neutropenic fever: Problem details: Neutrophil count not obtainable on initial labs, but presumed low with overall count so low. No fever overnight. Current visit: Yes Status: Acute (4) Mucositis (ulcerative) due to antineoplastic therapy: Problem details: Biopsy of tongue completed previously was negative for malignancy. F/U with ENT scheduled. Leukoplakia present as well. Current visit: No Status: Acute (5) Small cell lung cancer: Problem details: Relatively new diagnosis. Currently undergoing chemotherapy and radiation treatments. Current visit: Yes Status: Acute (6) Hypertension: Problem details: BP currently more towards hypotensive. Qualifiers: Hypertension type: essential hypertension Qualified Code(s): I10 - Essential (primary) hypertension Current visit: Yes Status: Acute (7) Hypokalemia: Current visit: Yes Status: Acute (8) JANETTE (acute kidney injury): Problem details: Likely due to dehydration. Resolved after IVF. Current visit: Yes Status: Acute (9) Anemia: Problem details: Relatively stable Current visit: Yes Status: Acute Plan: Assessment/Plan Narrative: 1) Sepsis due to pneumonia with neutropenic fever: - Cefepime 2g q8hr - Fluconazole 400mg IV qday - Continue mIVF at 125cc/hr - IVF bolus if recurring tachycardia, 500cc bolus this AM - RT consulted, appreciate care. O2 titrated as needed. - Continue to trend CBC daily 2) Mucositis with leukoplakia: - Magic mouthwash - Frequent mouth rinses, lip balm, oral care 3) Small cell lung cancer: - Oncology made aware of admission yesterday 4) Hypokalemia: - Add 20mEq KCl to mIVF - Daily BMP 5) JANETTE: Resolved 6) Anemia: - Will continue to trend FEN: Full liquid diet due to mucositis. Pt will let us know when/if he feels ready to advance diet. DVT prophylaxis: SCDs due to thrombocytopenia Dispo: Pt will require at least 2 additional midnights due to severity of illness with neutropenic fever. Question ability to return home after hospitalization, will likely require at least brief SNF stay. Quality VTE Deep Vein Thrombosis/Pulmonary Embolism Present on Admission: No
[2018-06-02] MEDS: FLUCONAZOLE 400 MG/200 ML PIGGYBACK 100 MG IV (14:13)
--- NOTE | 2018-06-02 17:43 | PC.NURSE ---
Addendum entered by Krystal Mendez R.N. 06/02/18 18:02: 1800 - Pt family attempting to assist pt back to bed. Educated to safety and call light use. Pt says pt just stated, I am going. Pt expressing concerns r/t pt weakness. Says that she has not seen MD today and states, he can't go home this weak. Reassurance provided that pt will be assessed for safe discharge. Bed alarm on. Monitor. Original Note: Pt request to go into the bathroom. Once finished, pt unable to stand up under own power. Require 2 person assist to return to standing position. Generalized weakness and fatigue this evening. Able to ambulate with assist back to chair. Set up for meal. Call light in reach.
[2018-06-02] MEDS: ATORVASTATIN 20 MG TABLET 60 MG PO (21:26)
[2018-06-02] MEDS: MELATONIN 3 MG TABLET 9 MG PO (21:27)
[2018-06-02] MEDS: ACETAMINOPHEN 325 MG TABLET 650 MG PO (21:27)
[2018-06-03] VITALS (18 sets, daily range): BP systolic 77–118; BP diastolic 47–74; PULSE 107–118; RESP 14–36; TEMP 36.2–36.9; O2SAT 83–98
--- NOTE | 2018-06-03 | DI.RAD.S_ITS ---
PROCEDURE: XR PELVIS 1-2V INDICATIONS: fall hip pain TECHNIQUE: 1 view(s) of the pelvis acquired. COMPARISON: None. FINDINGS: Bones: No fractures or dislocations. No suspicious bony lesions. Soft tissues: Visualized bowel gas pattern is normal. No suspicious soft tissue calcifications. Contrast within the urinary bladder is present. IMPRESSION: No acute fracture. No osseous lesion. If symptoms and/or clinical suspicion for pathology persist, further assessment with repeat, or advanced imaging (e.g., CT, MRI, or bone scan) may be helpful for further assessment. Dictated by: Derrek Weiss M.D. on 06/03/2018 at 9:37 Approved by: Derrek Weiss M.D. on 06/03/2018 at 9:37
--- NOTE | 2018-06-03 | DI.RAD.S_ITS ---
PROCEDURE: XR CHEST 1V INDICATIONS: pnumionia TECHNIQUE: One view of the chest was acquired. COMPARISON: [facility], CR, XR CHEST 1V, 06/01/2018, 9:27. [facility], CR, XR CHEST 1V, 04/05/2018, 14:00. [facility], CR, XR CHEST 1V, 03/24/2018, 17:20. FINDINGS: Surgical changes and devices: None. Lungs and pleura: No pleural effusions or pneumothorax. Decreased, mild bilateral lower lung airspace opacities. Rounded 32 mm diameter density at the left medial lung base. Mediastinum: Mediastinal contours appear normal. Heart size is normal. Bones and chest wall: No suspicious bony lesions. Overlying soft tissues appear unremarkable. IMPRESSION: 1. Resolving bibasilar pneumonia. 2. Rounded left medial basilar density; PA and lateral chest films are recommended for further assessment. The Dictated by: Derrek Weiss M.D. on 06/03/2018 at 9:35 Approved by: Derrek Weiss M.D. on 06/03/2018 at 9:35
--- NOTE | 2018-06-03 01:22 | PC.NURSE ---
Addendum entered by Denisha Kramer R.N. 06/03/18 06:30: door, when MULTIPLE SLIDE OPERATOR approached the pt to offer assistance, noting that the pt had poor balance, the patient swung at him. the MULTIPLE SLIDE OPERATOR there pressed the staff emergency button. The pt took a couple of steps toward the MULTIPLE SLIDE OPERATOR, the MULTIPLE SLIDE OPERATOR again offered assistance and the pt swung at him again x2. The patient lost his balance, fell back into the door and to the floor, pt may have pumped his head (but denied so when asked by the nurse). As the nurses entered the room the patient was swinging at the MULTIPLE SLIDE OPERATOR and saying don't kill me. The MULTIPLE SLIDE OPERATOR was instructed to leave the room and remained out of the room for the remainder of the shift. 4 nurses assisted the pt up with the over head lift. The pt continued to be paranoid and suspicious of the nurses, he was reassured that he was in the hospital and safe several time but he cursed and said he did not believe the nurses. When told that the nurse would call his and have her come in he calmed only slightly but stated that he didn't believe it. The pt remained resistive to care but eventually his brief and gown were changed. He had been incontinent of dark almost brown urine. was notified and she arrived with another family member at approx 5am. Pt continued to curse at staff but overall has been more calm after the arrived. Dr Naranjo was web application dev specialist and notified of mental status change and fall. Temp was checked at 0530 it was 99.2. Pt allowed blood draw via picc line. Original Note: Addendum entered by Denisha Kramer R.N. 06/03/18 06:29: At 0405, patient set off bed alarm, he was out of the bed near the Original Note: Patient Transgfered to RM 204 Pt denies pain and denies sob unpon arrival, O2 SAT 94% on RA. 2PA to transfer from W/C to the bed. Pt oriented to his new room, the call light and the staff.
[2018-06-03] MEDS: CEFEPIME 2 GM in SODIUM CHLORIDE 0.9% 100 ML 200 ML IV ×3 (06:07→23:04)
[2018-06-03 06:18] LABS: BUN Creatinine Ratio 21.3 (6-22); Blood Urea Nitrogen 32 mg/dL (9-20); Calcium 7.5 mg/dL (8.4-10.2); Carbon Dioxide 18 mmol/L (22-32); Chloride 111 mmol/L (98-107); Estimated Glomerular Filt Rate 45.4 mL/min (>60); Glucose 95 mg/dL (80-110); HEMOLYSIS 16 (0-50); Potassium 3.3 mmol/L (3.4-5.1)
[2018-06-03 06:22] LABS: Sodium 139 mmol/L (137-145)
[2018-06-03 06:23] LABS: Hematocrit 24.4 % (41-53); Hemoglobin 8.5 g/dL (13.5-17.5); Mean Corpuscular Hemoglobin 33.9 PG (26-34); Mean Corpuscular Volume 97.1 fL (80-100); Platelet Count 55 X10^3/uL (150-400); Red Blood Cell Count 2.51 X10^6/uL (4.5-5.9); Red Cell Distribution Width 14.7 % (11.6-14.8)
[2018-06-03 06:26] LABS: White Blood Cell Count 1.7 X10^3/uL (4.5-11.0)
[2018-06-03 08:01] LABS: Neutrophils Absolute Manual 1122 /uL (3000-5900); Platelet Estimate Decr; Total Cells Counted 50
[2018-06-03 08:02] LABS: Burr Cells 2+; Dohle Bodies 2+; Toxic Vacuolation Pres
[2018-06-03 08:03] LABS: Toxic Granulation Present
[2018-06-03] MEDS: MAGNESIUM SULFATE 2 GM/50 ML PIGGYBACK IV (09:07)
--- NOTE | 2018-06-03 09:15 | P.PN_ITS ---
Subjective Date Patient Seen: 06/03/18 Time Patient Seen: 07:41 Interval history: Patient had a very difficult night last night. Did not sleep well. This morning tried to get out of bed and fell to the ground. This was witnessed by the nurse. Patient became quite combative. He tried to swing and hit a number of the caregivers. There been she able to retract the patient back to bed. His was called in to attend am. Patient has had episodes of confusion in the past with medication but night quite this severe. His is concerned that he is not sleeping. On my arrival this morning he is sitting comfortably in bed he is confused. He has coarse breath sounds. He has oxygen going. He is trying to eat his old male he has no coughing or choking when he does this. Exam Vital Signs (past 8 hours): - 06/03/18 01:20 06/03/18 09:03 Temperature 97.1 F L Pulse Rate 115 H Respiratory Rate 18 Blood Pressure 118/74 Pulse Oximetry 94 98 Oxygen Delivery Method Room Air Oxygen Flow Rate 5 Narrative Exam Narrative: Gen.: Patient is confused and disoriented. HEENT: Pupils equal round and reactive or mucosa is dry. Cardio: S1-S2 regular rate and rhythm no murmurs appreciated. Respiratory: Coarse breath sounds. No significant wheezing. Increased work of breathing. Abdomen: Soft nontender no rebound or guarding no liver spleen enlargement no appreciable hernias Extremities: Moving all extremities without difficulty. Objective Labs Result Diagrams: 06/03/18 05:45 06/03/18 05:45 Labs: Laboratory Results - last 24 hr 06/02/18 06/02/18 06/03/18 05:10 05:10 05:45 WBC 0.3 L* 1.7 L* D RBC 2.74 L 2.51 L Hgb 9.3 L 8.5 L Hct 26.6 L 24.4 L MCV 97.2 97.1 MCH 34.1 H 33.9 MCHC 35.1 35.0 RDW 14.4 14.7 Plt Count 29 L* 55 L Total Counted 50 50 Seg Neutrophils % 12.0 L 30.0 L D Band Neutrophils % 36.0 H Lymphocytes % (Manual) 44.0 10.0 L Monocytes % (Manual) 34.0 H 10.0 Eosinophils % (Manual) 6.0 H Metamyelocytes % 2.0 H 8.0 H Myelocytes % 8.0 H Neutrophils # (Manual) 36 L 1122 L Toxic Granulation Present H Toxic Vacuolation Pres Dohle Bodies 2+ H Platelet Estimate Decr Plt Morphology Comment RBC Morphology . Not Reportable Aust[place] Cells 2+ H Sodium 135 L Potassium 3.1 L Chloride 104 Carbon Dioxide 21 L BUN 22 H Creatinine 1.10 Estimated GFR > 60.0 BUN/Creatinine Ratio 20.0 Glucose 109 Calcium 7.3 L Magnesium 1.5 L 06/03/18 05:45 WBC RBC Hgb Hct MCV MCH MCHC RDW Plt Count Total Counted Seg Neutrophils % Band Neutrophils % Lymphocytes % (Manual) Monocytes % (Manual) Eosinophils % (Manual) Metamyelocytes % Myelocytes % Neutrophils # (Manual) Toxic Granulation Toxic Vacuolation Dohle Bodies Platelet Estimate Plt Morphology Comment RBC Morphology Austell Cells Sodium 139 Potassium 3.3 L Chloride 111 H Carbon Dioxide 18 L BUN 32 H Creatinine 1.50 H Estimated GFR 45.4 L BUN/Creatinine Ratio 21.3 Glucose 95 Calcium 7.5 L Magnesium Assessment & Plan (1) Sepsis: Problem details: Likely due to pneumonia. Lactic acid normalized after fluid resuscitation. No evidence of end-organ damage. Stable now. Qualifiers: Sepsis type: sepsis due to unspecified organism Qualified Code(s): A41.9 - Sepsis, unspecified organism Current visit: Yes Status: Acute (2) Pneumonia: Problem details: Community acquired. Due to immunosuppression, and with results of xray, cannot rule-out fungal cause as well as bacterial. Requiring 3L O2 via NC. Qualifiers: Aspiration pneumonia type: Laterality: unspecified laterality Lung location: unspecified part of lung Pneumonia type: due to unspecified organism Qualified Code(s): J18.9 - Pneumonia, unspecified organism Current visit: Yes Status: Acute (3) Neutropenic fever: Problem details: Neutrophil count not obtainable on initial labs, but presumed low with overall count so low. No fever overnight. Current visit: Yes Status: Acute (4) Mucositis (ulcerative) due to antineoplastic therapy: Problem details: Biopsy of tongue completed previously was negative for malignancy. F/U with ENT scheduled. Leukoplakia present as well. Current visit: No Status: Acute (5) Small cell lung cancer: Problem details: Relatively new diagnosis. Currently undergoing chemotherapy and radiation treatments. Current visit: Yes Status: Acute (6) Hypertension: Problem details: BP currently more towards hypotensive. Qualifiers: Hypertension type: essential hypertension Qualified Code(s): I10 - Essential (primary) hypertension Current visit: Yes Status: Acute (7) Hypokalemia: Current visit: Yes Status: Acute (8) JANETTE (acute kidney injury): Problem details: Likely due to dehydration. Resolved after IVF. Current visit: Yes Status: Acute (9) Anemia: Problem details: Relatively stable Current visit: Yes Status: Acute Plan: Assessment/Plan Narrative: Sepsis due to pneumonia. Sepsis is improving. His white blood cell count is a little bit better. Continue with current antibiotic and antifungal. Blood pressure is now normalized less requirement of IV fluids. Pneumonia. Worsening. Component I think of fluid overload today. Repeat x- ray. Will go ahead and decrease IV fluids. May be provided dose of Lasix. Respiratory therapy to help work with oxygenation. Acute metabolic encephalopathy due to medication significant infection. Had a fall last night. And some combativeness. Discussed that with family this morning. Continue as needed lorazepam. Not sleeping well this may also help. Fall in the room last evening during is combative episode. Some hip pain. Obtain pelvic x-ray this morning. Anemia. Due to acute illness infection and chemotherapy. Hemoglobin and hematocrit is low type and screen this morning. If it continues to drop may require blood transfusion. Small cell lung cancer. New diagnosis undergoing radiation and chemotherapy. Acute kidney injury. Initially improved now worsened again over night continue to monitor his creatinine. Hypo magnesium continue with magnesium replacement recheck magnesium tomorrow. Hypokalemia. Continue with potassium replacement. Disposition plan. Patient still quite quit a call. Did not see patient yesterday but symptoms are severe. Discussed care wishes and plan with and currently he is a full code. Discussed is concerned about his delirium and nutrition as well as his decline in respiratory status. Quality VTE Deep Vein Thrombosis/Pulmonary Embolism Present on Admission: No
[2018-06-03] MEDS: POTASSIUM CHLORIDE 60 MEQ in SODIUM CHLORIDE 0.9% 500 ML 88.333 ML IV (12:23)
--- NOTE | 2018-06-03 12:54 | ONC.NAV ---
Description: Care Coordination/Coping Support Activity: Pt's and her cousin came over to our clinic to update us re: pt's inpatient status and concerns. This BASE FILLER OPERATOR met with them privately in the resource room to discuss pt's declining status, as well as 's own caregiver fatigue and worries re: pt's comfort. states that patient has been hallucinating, paranoid, combative, is not sleeping but a few hours intermittently, fell last night in his hospital room, and is not eating. He continues to drink ensure when he can tolerate it, however the sores in his mouth have become so painful for him that he is choosing more often to not have anything. His urine is reported to be dark brown. She states that although pt remains very agitated, that the MD covering for Dr. Cuevas is reticent to give him any sedatives, stating that it would weaken his body's ability to fight the pneumonia. BASE FILLER OPERATOR and discussed what she would like to see happen for her . She wants to see him more comfortable, calm, even if he is sleeping more. She was already told that he is not currently a candidate for any more chemotherapy, or radiation at this time due to his functional status. Discussed the option of asking GREGORIO Corcoran, to go up to the floor and visit pt later this afternoon, for palliative/clinical assessment. Rae will plan to visit pt later this afternoon, between 4:30-5:00pm. left visit appearing much more calm and relieved, expressed understanding of this conversation, and that she will continue to receive assistance form staff re: discharge planning and having resources in place in the home once pt returns home.
[2018-06-03] MEDS: ALBUTEROL/IPRATROPIUM 3 ML AMPUL INH (13:17)
--- NOTE | 2018-06-03 15:45 | PC.NURSE ---
Resp: Found w/initial sat on ra of 83%, fingers dusky blue, circumoral cyanosis present. O2 placed at 2L initially and then titrated up to 5L, RT called and Dr. Naranjo happened to be here and notified of decreased sats. See MD orders. Received neb treatments by RT. Hob elevated. Nail beds still dusky but is much pinker now and have been able to decrease O2 to 3L. Lungs course sounding, audible wheezes at times. Ear for pulse ox checks placed and pt tends to pull at line, sound bothers him so it has been turned off and on per pt comfort. Is disoriented at times, tries to get out of bed, doesn't use call light, forgets to use it. Or will be found with legs over the side rails. Pt was reassurable. Poss hallucinations, hears sounds out in the hallway and thinks someone is calling for him or that he needs to attend to something. minimal amt of diet taken, nothing sounds good. Only request has been for scrambled eggs and a message was left with md to see if diet can be advanced. Pt is in the process of being transfered to a closer room so eyes on observation can occur. Both he and his are aware of this and agreeable. Cont w/poc.
[2018-06-03] MEDS: LORazepam 2 MG/ML SYRINGE 1 MG IV ×2 (15:58→20:54)
--- NOTE | 2018-06-03 16:19 | PC.NURSE ---
Staff attempting to toilet pt on commode as pt refuses to use urinal. Pt is wide-eyed and reluctant to accept staff explanations. Informed pt spouse is coming to visit and pt's response, No, she isn't. Requires verbal cueing to stand for brief to be pulled up and to side step to return to bed. Pushes staff away, grabs at staff and attempts to strike. Multiple staff members in to reassure pt and this mortgage or loan underwriter administered 1 mg iv ativan. Moved to room 206 for better viewing.
--- NOTE | 2018-06-03 17:04 | P.PNONC_ITS ---
Assessment and Plan (1) Sepsis Problem details: Likely due to pneumonia. Lactic acid normalized after fluid resuscitation. No evidence of end-organ damage. Stable now. Current visit: Yes Status: Acute 06/03/18 17:30 Chan is a 77-year-old male with recently confirmed non-small cell lung cancer. He recently began treatment in the form of chemotherapy cisplatin and etoposide with concurrent radiation therapy. He has received 1 cycle of cisplatin and etoposide, he has received 8 radiation treatments thus far. He developed cough, subsequently developed fever, then he became confused. His called 911 he was transported to the emergency department where he did have a temperature of 100.2?. He has severe pancytopenia due to chemotherapy. Imaging demonstrated likely aspiration pneumonia. There was no evidence of pulmonary embolus. He was hypotensive also tachycardic with elevated procalcitonin also lactic acid. Appropriately he was admitted with a diagnosis of sepsis. 1. Sepsis. Patient presented with altered mental status, tachycardia, hypotension. He has severe pancytopenia due to chemotherapy. Procalcitonin also lactic acid quite elevated. Imaging demonstrated possible pneumonia. Currently being treated with cefepime. Blood cultures were collected, these remain pending. 2. Tachycardia. Now found to be atrial fibrillation with rapid ventricular response. At time of my visit patient was noted to be tachycardic with a heart rate greater than 150. EKG demonstrated atrial fibrillation with rapid ventricular response. I do not see in this patient's history he has previous atrial fibrillation. The patient's primary care provider Dr Naranjo has informed nursing to watch the pt for 60 minutes and if no improvement call Dr Downs and likely transfer to ICU. I suspect tachycardia is multifactorial due to sepsis, fluid volume overload, chemotherapy, severe cytopenias. 3. Fluid volume overload. Patient has upper extremity edema. In review of nursing notes since admission he has had more than 8000 mL infused, only 50 mL is documented as output. Patient has been incontinent. Weight at time of admission was 74 kg at time of my visit weight was 81 kg. Fluid volume overload also likely contributing to tachycardia. I will provide the patient with Lasix 40 mg IV now followed by Lasix 40 mg IV every 8 hr. Patient's baseline creatinine runs about 1.2-1.3. Most recently it was 1.5 I suspect this is due to poor perfusion due to tachycardia, fluid volume overload. Nursing has placed a [place] catheter for patient comfort as getting up to urinate has been quite stressful. 4. Hypo magnesium also hypokalemia. These have been replaced intravenously. Continue to follow. 5. Acute metabolic encephalopathy. Due to sepsis. Continue to treat with cefepime. Continue as needed lorazepam. Patient also has not slept this is likely contributing. 6. Small cell lung cancer. Treatment on hold both chemotherapy and radiation. I reviewed with the patient's criteria to resume treatment. It will be quite some time before we will be at the point where we can even discuss resuming treatment. Seven. Neutropenia. White count is slowly climbing. Continue to monitor. 8. Mucositis with leukoplakia. I will contact ENT Dr Renteria who has been treating the pt. This is not thrush. The patient at 1 point was washing his mouth with pure vinegar my suspicion is that he cause rather significant damage. I would recommend either only saline mouth washes or warm salt water wash. I would discontinue Magic mouthwash any other oral agents at this point. 9. Disposition. Patient is unstable. He is hypotensive, tachycardic with an EKG demonstrating atrial fibrillation with rapid ventricular response with a rate of 180. Patient will be transferred to ICU. All the above reviewed in detail with the patient's spouse. She verbalizes understanding. His condition remains precarious. - Time Spent with Patient 60 minutes PN -Subjective Interval history: Chan is a 77-year-old male well known to the [facility]. He has recently small cell lung cancer currently undergoing concurrent chemotherapy also radiation therapy. He thus far he has had 8 radiation treatments. Chemotherapy in the form of cisplatin and etoposide. He has received 1 cycle. His chemotherapy consists of cisplatin day 1, etoposide day 1, 2, 3. Each cycle is a 21 day cycle. Plan was to complete 4 cycles total. Chan presented to the emergency room June 01 via EMS with a chief complaint of confusion, fever, cough. He also has rather severe buccal mucositis which he has been dealing with for at least 12 months. He also had leukoplakia, he was sent by Oncology to ENT for biopsy. Biopsy was non malignant. His oral issues have been causing him significant discomfort, he has had difficulty eating. Multiple treatments have proven in affective. Patient did have fever per report with a T-max of 102?. While hospitalized he had fever up to 101. Patient was also acting delirious. He was incontinent of stool which is very unusual for him. At time of admit patient's white count was 0.2 hemoglobin 10.7 hematocrit 30.7 platelets 25 potassium 2.8 creatinine 1.3 BUN 18 GFR 53.5 AST 47 ALT 26. Procalcitonin was elevated at 9.1. Lactate also elevated at 4.9. ABG demonstrated a pH of 7.53, pCO2 26.4, PO2 96, bicarb 22 with a base excess of - 1.0. CTA did rule out pulmonary embolus, did identify nodular opacities consistent with pneumonia. Chest x-ray one view June 03 demonstrated resolving bibasilar pneumonia however patient's condition continued to worsen. Specifically with cognitive changes, per nursing paranoia, becoming combative which is very unusual for him. He did not recognize his . Per nursing he has been tachypneic on 3 L of oxygen with oxygen saturations low to mid 90s. He has been more cooperative since receiving lorazepam 1 mg IV. is at bedside, a friend is with her as well. Chan is currently receiving cefepime for pneumonia. At the time of my visit Chan is awake, he is able to follow simple commands however I cannot understand what he is trying to say, his voice is very soft. He has audible rows at the bedside. He has a nonproductive cough. He is tachycardic with heart rate in the 150s to 170 ease he is also tachypneic with respiratory rate at 40. EKG demonstrates atrial fibrillation with rapid ventricular response with a rate of 180. Results - Labs 06/03/18 05:45 06/03/18 05:45 Laboratory Last Values WBC 1.7 X10^3/uL (4.5-11.0) L* D 06/03/18 05:45 RBC 2.51 X10^6/uL (4.5-5.9) L 06/03/18 05:45 Hgb 8.5 g/dL (13.5-17.5) L 06/03/18 05:45 Hct 24.4 % (41-53) L 06/03/18 05:45 MCV 97.1 fL (80-100) 06/03/18 05:45 MCH 33.9 PG (26-34) 06/03/18 05:45 MCHC 35.0 % (30-36) 06/03/18 05:45 RDW 14.7 % (11.6-14.8) 06/03/18 05:45 Plt Count 55 X10^3/uL (150-400) L 06/03/18 05:45 Neut % (Auto) Not Reportable 06/01/18 09:35 Lymph % (Auto) Not Reportable 06/01/18 09:35 Crockett % (Auto) Not Reportable 06/01/18 09:35 Eos % (Auto) Not Reportable 06/01/18 09:35 Baso % (Auto) Not Reportable 06/01/18 09:35 Total Counted 50 06/03/18 05:45 Seg Neutrophils % 30.0 % (38-70) L D 06/03/18 05:45 Band Neutrophils % 36.0 % (3-7) H 06/03/18 05:45 Lymphocytes % (Manual) 10.0 % (25-45) L 06/03/18 05:45 Monocytes % (Manual) 10.0 % (2-11) 06/03/18 05:45 Eosinophils % (Manual) 6.0 % (2-4) H 06/03/18 05:45 Metamyelocytes % 8.0 % (-0) H 06/03/18 05:45 Myelocytes % 8.0 % (-0) H 06/02/18 05:10 Neutrophils # (Manual) 1122 /uL (1291-1953) L 06/03/18 05:45 Differential Comment 06/01/18 09:35 Toxic Granulation Present H 06/03/18 05:45 Toxic Vacuolation Pres 06/03/18 05:45 Dohle Bodies 2+ H 06/03/18 05:45 WBC Morphology Comment 06/01/18 09:35 Platelet Estimate Decr 06/03/18 05:45 Plt Morphology Comment 06/03/18 05:45 RBC Morphology Not Reportable 06/03/18 05:45 Anisocytosis 1+ H 06/01/18 09:35 Roderick Cells 2+ H 06/03/18 05:45 ABG pH 7.53 (7.35-7.45) H 06/01/18 09:52 ABG pCO2 26.4 mmHg (35-45) L 06/01/18 09:52 ABG pO2 96 mmHg (80-105) 06/01/18 09:52 ABG HCO3 22 mmol/L (23-27) L 06/01/18 09:52 ABG Total CO2 23 mmol/L (23-27) 07 09:52 ABG O2 Saturation 98 % (95-100) 07 09:52 ABG Base Excess -1.0 mmol/L (-2-3) 06/01/18 09:52 FiO2 1.0 06/01/18 09:52 Sodium 139 mmol/L (137-145) 06/03/18 05:45 Potassium 3.3 mmol/L (3.4-5.1) L 06/03/18 05:45 Chloride 111 mmol/L (98-107) H 06/03/18 05:45 Carbon Dioxide 18 mmol/L (22-32) L 06/03/18 05:45 BUN 32 mg/dL (9-20) H 06/03/18 05:45 Creatinine 1.50 mg/dL (0.66-1.25) H 06/03/18 05:45 Estimated GFR 45.4 mL/min (>60) L 06/03/18 05:45 BUN/Creatinine Ratio 21.3 (6-22) 06/03/18 05:45 Glucose 95 mg/dL (80-110) 06/03/18 05:45 Lactate 1.7 mmol/L (0.7-2.1) 06/01/18 14:28 Calcium 7.5 mg/dL (8.4-10.2) L 06/03/18 05:45 Magnesium 1.5 mg/dL (1.6-2.3) L 06/02/18 05:10 Total Bilirubin 1.6 mg/dL (0.2-1.3) H 06/01/18 09:35 AST 47 IU/L (17-59) 06/01/18 09:35 ALT 26 IU/L (21-72) 06/01/18 09:35 Alkaline Phosphatase 113 U/L (38-126) 06/01/18 09:35 Total Protein 6.3 g/dL (6.3-8.2) 06/01/18 09:35 Albumin 3.4 g/dL (3.5-5.0) L 06/01/18 09:35 Globulin 2.9 g/dL (1.7-4.1) 06/01/18 09:35 Albumin/Globulin Ratio 1.2 (1.0-2.8) 06/01/18 09:35 Lipase < 10 U/L (23-300) L 06/01/18 09:35 Procalcitonin 9.10 ng/mL (<0.5) H 06/01/18 09:35 Urine Color Yellow 06/01/18 19:30 Urine Appearance Sl cloudy 06/01/18 19:30 Urine pH 6.0 (4.5-8.0) 06/01/18 19:30 Ur Specific Raymond <=1.005 (1.000-1.035) 06/01/18 19:30 Urine Protein 2+ (Negative) H 06/01/18 19:30 Urine Glucose (UA) Negative g/dL (Normal) 06/01/18 19:30 Urine Ketones Negative (NEGATIVE) 06/01/18 19:30 Urine Occult Blood 3+ (Negative) H 06/01/18 19:30 Urine Nitrate Negative (Negative) 06/01/18 19:30 Urine Bilirubin Negative (NEGATIVE) 06/01/18 19:30 Urine Urobilinogen 0.2 E.U./dL (0.2) 06/01/18 19:30 Ur Leukocyte Esterase Negative (NEGATIVE) 06/01/18 19:30 Urine RBC 0-1/hpf (0-5/HPF) 06/01/18 19:30 Urine WBC 1-5/hpf (0-5/HPF) 06/01/18 19:30 Ur Squamous Epith Cells 0-1 /hpf 06/01/18 19:30 Amorphous Sediment 1+ 06/01/18 19:30 Urine Bacteria None seen (None) 06/01/18 19:30 Ur Culture Indicated? Cult not indicated 06/01/18 19:30 Micro UA Comment Not Reportable 06/01/18 19:30 Nasal Screen MRSA (PCR) Negative for mrsa (Negative) 06/01/18 14:09 Blood Type O Positive 06/03/18 09:30 Antibody Screen Negative 06/03/18 09:30 - Imaging Additional studies: Procedures Contrast myelogram (10/10/13) Insertion of intraocular lens prosthesis at time of cataract extraction, one- stage (01/03/15) Intraoperative cholangiogram (07/29/11) Laparoscopic cholecystectomy (07/29/11) Phacoemulsification and aspiration of cataract (01/03/15) Transfusion of Nonautologous Red Blood Cells into Peripheral Vein, Percutaneous Approach (05/22/17) Home Medications and Allergies Home Medications Medication Instructions Recorded Confirmed Type multivitamin 1 tab PO DAILY #0 09/12/11 06/01/18 History cyanocobalamin (vitamin B-12) 3,000 mcg PO QAM #0 08/26/16 06/01/18 History aspirin 325 mg PO QDAY #0 07/29/17 06/01/18 History atorvastatin 60 mg PO HS #45 tab 10/29/17 06/01/18 Rx pantoprazole [Protonix] 40 mg PO QDAY #90 mg 11/20/17 06/01/18 Rx ondansetron [Zofran ODT] 4 mg PO Q6-8H PRN #30 tab 05/20/18 06/01/18 Rx Fish Oil 1200mg/Fleming 3 720mg 1 cap PO DAILY 06/01/18 06/01/18 History Magic Mouthwash 1 dose PO TID PRN 06/01/18 06/01/18 History calcium carbonate-vitamin D3 1 cap PO DAILY 06/01/18 06/01/18 History [Calcium 600 + D(3)] cilostazol 1 tab PO BIDAC 06/01/18 06/01/18 History lorazepam 0.5 mg PO Q6-8H PRN 06/01/18 06/01/18 History melatonin 10 mg PO BEDTIME PRN 06/01/18 06/01/18 History Allergies Allergy/AdvReac Type Severity Reaction Status Date / Time morphine [MORPHINE] Allergy Severe HALLUCINATI Verified 05/30/18 11:23 ONS thimerosal [THIMEROSAL] Allergy Mild PANCHAL Verified 05/30/18 11:23 ketamine [KETAMINE] AdvReac Unknown BECAME Verified 05/30/18 11:23 ANGRY; YELLING AT ER STAFF AND DOESN'T REMEMBER. Exam Vital signs: Last Vital Signs Temp 98.2 F 06/03/18 12:31 Pulse 112 H 06/03/18 13:17 Resp 14 06/03/18 13:17 BP 107/58 L 06/03/18 12:31 Pulse Ox 98 07/12/18 13:17 Narrative: awake and alert, follows simple commands. Speech is unintelligible. and her cousin at bedside - Constitutional positive moderate distress, positive disheveled - Routine HEENT Exam Head: Present: normocephalic, atraumatic Eye: Absent: conjunctival icterus, scleral injection ENT: Present: mucous membranes dry Comments: oral sores and lesions. Oropharynx very dry - Routine Neck Exam Present: supple, JVD. Absent: lymphadenopathy Comments: mild JVD - Routine Respiratory Exam Present: accessory muscle use, rhonchi, crackles, diminished air movement. Absent: decreased breath sounds, rales Comments: coarse breath sounds throughout with diminished air movement - Routine Cardiovascular Exam Present: tachycardia, JVD Comments: unable to auscultate heart tones due to coarse breath sounds. - Routine Abdominal Exam Present: soft, normoactive bowel sounds. Absent: tenderness, distended - Routine Extremities Exam Absent: edema, calf tenderness - Routine Skin Exam Absent: petechiae, rash - Routine Neurological Exam Present: alert Will follow simple commands, speech is unintelligible. He is able to tell me his is at his bedside. Otherwise he does not know where he is, the year, nor does he recognized me whom he has seen almost weekly for the last several weeks. - Routine Psychiatric Exam Comments: per nursing has been paranoid, combative. Better with IV lorazepam (1) Sepsis Qualifiers: Sepsis type: sepsis due to unspecified organism Qualified Code(s): A41.9 - Sepsis, unspecified organism
--- NOTE | 2018-06-03 17:05 | PC.NURSE ---
Pt now resting quieter in bed and cooperative with staff. Rae Payne in to see patient, assess pt, and speak with pt's spouse who is present in room. HR per monitor 163. Difficult to auscultate apical rate d/t pt's coarse and wet breath sounds. 02 3L nc sats 95% per continuous monitor. EKG in progress per Rae's orders. 16 Fr arthur inserted without difficulty with immediate return clear, yellow urine. Dr. Naranjo in to see patient. Order received to give 40 mg iv lasix.
[2018-06-03] MEDS: FUROSEMIDE 40 MG/4 ML VIAL IV (17:28)
[2018-06-03] MEDS: DIGOXIN 500 MCG/2 ML AMPUL 250 MCG IV (17:45)
--- NOTE | 2018-06-03 18:21 | PC.NURSE ---
Addendum entered by Frida Junior R.N. 06/03/18 19:20: 1845 - Dr. Miller updated on patient's hypotension. New order received for 500ml bolus of NS. Original Note: Per Dr. Naranjo, transfer pt to ICU. Administered digoxin as ordered prior to transfer. Second iv site established and antibiotics infusing as well as krider. Heartrate 119 and per CAROLINA Tolbert, pt now sinus tach. Pt remains awake, calm and reassured. Spouse present and informed of plan of action. Pt transferred on portable oxygen to icu room 104 with spouse following. Blood pressure @ transfer 77/45. Head of bed lowered for transfer and to support perfusion. [place] to gravity with draining, yellow urine. Report to Frida FIGUEROA.
[2018-06-03] MEDS: SODIUM CHLORIDE 0.9% 100 ML 500 ML IV (18:51)
[2018-06-03] MEDS: FLUCONAZOLE 400 MG/200 ML PIGGYBACK 100 MG IV (19:27)
[2018-06-03] MEDS: OLANZapine 2.5 MG TABLET PO (20:30)
[2018-06-03] MEDS: ATORVASTATIN 20 MG TABLET 60 MG PO (20:31)
[2018-06-03] MEDS: MELATONIN 3 MG TABLET 9 MG PO (20:54)
[2018-06-03] MEDS: POTASSIUM CHLORIDE 20 MEQ in SODIUM CHLORIDE 0.9% 1,000 ML 125 MEQ IV (21:26)
[2018-06-04] VITALS (21 sets, daily range): BP systolic 77–151; BP diastolic 31–67; PULSE 102–113; RESP 28–39; TEMP 37; O2SAT 77–100
[2018-06-04] MEDS: LORazepam 2 MG/ML SYRINGE 1 MG IV ×2 (00:45→05:02)
--- NOTE | 2018-06-04 00:57 | PC.NURSE ---
Addendum entered by Pooja Bruner R.N. 06/04/18 05:31: Spontaneous desaturations down to 83% on 4LNC. Placed back on NRB, Sp02 92%. RT paged for NTS. Original Note: Addendum entered by Pooja Bruner R.N. 06/04/18 04:30: SBP consistently < 85, Levophed initiated per orders at 2 mcg/min. Original Note: Initial assessment patient asleep in NAD. Spo2 97% 3LNC. RR 24. Lungs coarse bilaterally with some rhonchi. 0025 Sp02 dropped to 76% on 3LNC, RR up to 34. RT paged to room, pt placed on 15L NRB mask. Sp02 up to 94% over approximately [address] Miller notified of changed in oxygen requirements and current patient status. Orders for NTS, aware that platelets are 55. RT at bedside for NTS. Pt has a difficult time following commands and coughing on cue. Moderate amount of boone secretions upon suctioning. Placed back on NC at 4L, currently maintaining Sp02 94-95%. Will monitor closely. RT asked pt if he would like intubation if he were to further deteriorate, pt nods head yes.
[2018-06-04] MEDS: NOREPINEPHRINE 4 MG in DEXTROSE 5% IN WATER 250 ML 7.62 ML IV (04:21)
[2018-06-04] MEDS: CEFEPIME 2 GM in SODIUM CHLORIDE 0.9% 100 ML 200 ML IV (05:02)
[2018-06-04 05:14] LABS: Hematocrit 24.5 % (41-53); Hemoglobin 8.5 g/dL (13.5-17.5); Mean Corpuscular HGB Conc 34.7 % (30-36); Mean Corpuscular Hemoglobin 34.3 PG (26-34); Mean Corpuscular Volume 99.1 fL (80-100); Platelet Count 66 X10^3/uL (150-400); Red Blood Cell Count 2.47 X10^6/uL (4.5-5.9); Red Cell Distribution Width 14.8 % (11.6-14.8); White Blood Cell Count 9.1 X10^3/uL (4.5-11.0)
[2018-06-04 05:15] LABS: Add Manual Diff / Slide Review YES
[2018-06-04 05:19] LABS: Alanine Aminotransferase 36 IU/L (21-72); Albumin 2.2 g/dL (3.5-5.0); Albumin Globulin Ratio 0.9 (1.0-2.8); Alkaline Phosphatase 76 U/L (38-126); Aspartate Aminotransferase 57 IU/L (17-59); BUN Creatinine Ratio 20.5 (6-22); Bilirubin Total 0.7 mg/dL (0.2-1.3); Blood Urea Nitrogen 41 mg/dL (9-20); Calcium 7.9 mg/dL (8.4-10.2); Carbon Dioxide 16 mmol/L (22-32); Chloride 117 mmol/L (98-107); Estimated Glomerular Filt Rate 32.6 mL/min (>60); Globulin 2.5 g/dL (1.7-4.1); Glucose 109 mg/dL (80-110); HEMOLYSIS < 15 (0-50); Potassium 4.5 mmol/L (3.4-5.1); Sodium 143 mmol/L (137-145); Total Protein 4.7 g/dL (6.3-8.2)
[2018-06-04 05:24] LABS: Magnesium 2.2 mg/dL (1.6-2.3)
[2018-06-04 05:38] LABS: Neutrophils Absolute Manual 7553 /uL (3000-5900); Polychromasia 1+; Total Cells Counted 100
[2018-06-04] MEDS: POTASSIUM CHLORIDE 20 MEQ in SODIUM CHLORIDE 0.9% 1,000 ML 125 MEQ IV (06:09)
[2018-06-04] MEDS: DIGOXIN 500 MCG/2 ML AMPUL 250 MCG IV (06:11)
--- NOTE | 2018-06-04 07:00 | DI.RAD.S_ITS ---
PROCEDURE: XR CHEST 1V INDICATIONS: Pneumonia TECHNIQUE: One view of the chest was acquired. COMPARISON: [facility], CR, XR CHEST 1V, 06/03/2018, 9:05. FINDINGS: Surgical changes and devices: None. Lungs and pleura: Bilateral small pleural effusions. Opacities may be consolidations or atelectasis. No pneumothorax. Mediastinum: Mediastinal contours appear normal. Heart size is normal. Bones and chest wall: No suspicious bony lesions. Overlying soft tissues appear unremarkable. IMPRESSION: Bilateral small pleural effusions with bibasilar consolidations or atelectasis. Dictated by: Montez Ledezma M.D. on 06/04/2018 at 9:56 Approved by: Montez Ledezma M.D. on 06/04/2018 at 9:57
--- NOTE | 2018-06-04 07:38 | PM.DS.1 ---
History of Present Illness Date Patient Seen: 06/04/18 Time Patient Seen: 07:49 Chief complaint: Dehydration Narrative: Patient is a 77-year-old man with small cell lung cancer currently undergoing chemotherapy and radiation, mucositis, hypertension, anemia, and history of CVA who presented with fever, decreased p.o. intake, and cough. The patient was unable to communicate well due to his significant buccal mucositis, therefore the history was obtained from his . The pts reports that over the weekend it was becoming increasingly difficult for him to eat due to his mouth issues. She was concerned that he was becoming dehydrated as a result. Yesterday evening, he developed a fever to 102F. This morning, the fever persisted in the 101s. The pt then was acting very delirious, and had a BM in the bed, which was unusual for him. Due to his confusion and fever, she called EMS to have him evaluated in the ER. The pts does report that he has had a worsening cough for the past 2 weeks. The cough is intermittently productive of clear yellow phlegm. Prior to last night, he has not had any fevers. He has not had any increased work of breathing. He denies any issues with urination or BMs. He has been more fatigued recently due to the chemotherapy and radiation {from Dr. Ashley's history and physical June 01, 2018} Discharge Providers Date of admission: 06/01/18 12:15 Primary care physician: Mendez Cuevas MD Consults: 06/01/18 13:51 Consult to Dietitian, Adult Routine Comment: Reason For Exam: assessed at high risk 06/01/18 17:22 Consult to Dietitian, Adult Routine Comment: Reason For Exam: assessed at high risk Discharge provider: Joseph Miller MD Discharge Date: 06/04/18 Summary Discharge Diagnosis: 1. Community-acquired pneumonia in the setting of neutropenia, cannot rule out healthcare associated pneumonia 2. Anemia due to antineoplastic agents 3. Thrombocytopenia due to antineoplastic agents 4. Small cell lung cancer 5. Acute kidney injury/acute renal failure 6. Sepsis 7. Respiratory failure based on severe hypoxia tachypnea and eventual agonal respirations, hypotension 8. Metabolic encephalopathy 9. Hypokalemia 10. Paroxysmal atrial fibrillation with rapid ventricular response Hospital Course: Patient was admitted via the emergency department. Initially felt to be septic from a likely pneumonia source of infection. Patient was also neutropenic with fever as well as thrombocytopenic from his chemotherapy for his small cell lung cancer. He was treated aggressively with IV fluids and broad-spectrum IV antibiotics. Patient really seem to improve with decreased heart rate increased blood pressure and overall improvement in his mental status which was also altered upon admission. Within the 24 hr prior to his expiration patient became more combative agitated began to have an oxygen requirement this see more progressive began to have increased work of breathing. His renal function declined after initially improving. He became hypotensive again and went into an atrial fibrillation with rapid ventricular response. He was aggressively managed transferred to the ICU where he converted back to sinus tachycardia. He received IV fluids and pressors as well as diuretic therapy with no improvement in his overall clinical status. He continued to decline to the point where to survive the would of required intubation at which point family made the decision that he should become comfort care and no further heroic interventions were appropriate. Patient was kept comfortable and subsequently on the morning of June 04, 2018 Exam Vital Signs (past 8 hours): - 06/03/18 23:48 06/04/18 00:25 06/04/18 00:31 Temperature 97.7 F Pulse Rate 109 H Respiratory Rate 24 Blood Pressure 97/49 L Pulse Oximetry 96 77 L 100 06/04/18 00:39 06/04/18 00:58 06/04/18 01:21 Temperature Pulse Rate 111 H 109 H Respiratory Rate 28 H 30 H 28 H Blood Pressure 90/59 L 83/67 L Pulse Oximetry 100 100 95 06/04/18 01:33 06/04/18 02:00 06/04/18 02:19 Temperature Pulse Rate 110 H 110 H 110 H Respiratory Rate 28 H 30 H 32 H Blood Pressure 84/50 L 83/51 L 91/53 L Pulse Oximetry 97 96 96 06/04/18 03:20 06/04/18 03:40 06/04/18 04:08 Temperature Pulse Rate 102 H 104 H Respiratory Rate 28 H 30 H Blood Pressure 80/37 L 77/49 L Pulse Oximetry 95 95 99 06/04/18 04:26 06/04/18 04:28 06/04/18 04:44 Temperature 98.6 F Pulse Rate 103 H 102 H 103 H Respiratory Rate 37 H 34 H 32 H Blood Pressure 82/50 L 82/31 L 97/38 L Pulse Oximetry 96 99 99 06/04/18 04:51 06/04/18 05:16 06/04/18 05:31 Temperature Pulse Rate 103 H 102 H Respiratory Rate 32 H 34 H Blood Pressure 110/67 91/33 L Pulse Oximetry 100 100 92 06/04/18 06:01 06/04/18 06:11 06/04/18 06:50 Temperature Pulse Rate 110 H 104 H 111 H Respiratory Rate 28 H 39 H Blood Pressure 90/56 L Pulse Oximetry 95 93 06/04/18 06:59 Temperature Pulse Rate 113 H Respiratory Rate 36 H Blood Pressure 151/65 H Pulse Oximetry 97 Oxygen Delivery Method Venturi Mask Oxygen Flow Rate 8 Objective Labs Result Diagrams: 06/04/18 05:00 06/04/18 05:00 Labs: Laboratory Results - last 24 hr 06/03/18 06/03/18 06/04/18 05:45 09:30 05:00 WBC 9.1 D RBC 2.47 L Hgb 8.5 L Hct 24.5 L MCV 99.1 MCH 34.3 H MCHC 34.7 RDW 14.8 Plt Count 66 L Neut % (Auto) Not Reportable Lymph % (Auto) Not Reportable [place] % (Auto) Not Reportable Eos % (Auto) Not Reportable Baso % (Auto) Not Reportable Total Counted 50 100 Seg Neutrophils % 30.0 L D 44.0 Band Neutrophils % 36.0 H 39.0 H Lymphocytes % (Manual) 10.0 L 8.0 L Monocytes % (Manual) 10.0 7.0 Eosinophils % (Manual) 6.0 H Metamyelocytes % 8.0 H 2.0 H Neutrophils # (Manual) 1122 L 7553 H Toxic Granulation Present H Toxic Vacuolation Pres Dohle Bodies 2+ H Platelet Estimate Decr Plt Morphology Comment RBC Morphology Not Reportable Not Reportable Polychromasia 1+ H [place] Cells 2+ H Sodium Potassium Chloride Carbon Dioxide BUN Creatinine Estimated GFR BUN/Creatinine Ratio Glucose Calcium Magnesium Total Bilirubin AST ALT Alkaline Phosphatase B-Natriuretic Peptide Total Protein Albumin Globulin Albumin/Globulin Ratio Blood Type O Positive Antibody Screen Negative 06/04/18 06/04/18 06/04/18 05:00 05:00 05:00 WBC RBC Hgb Hct MCV MCH MCHC RDW Plt Count Neut % (Auto) Lymph % (Auto) [place] % (Auto) Eos % (Auto) Baso % (Auto) Total Counted Seg Neutrophils % Band Neutrophils % Lymphocytes % (Manual) Monocytes % (Manual) Eosinophils % (Manual) Metamyelocytes % Neutrophils # (Manual) Toxic Granulation Toxic Vacuolation Dohle Bodies Platelet Estimate Plt Morphology Comment RBC Morphology Polychromasia [place]oder[place] Cells Sodium 143 Potassium 4.5 D Chloride 117 H Carbon Dioxide 16 L BUN 41 H Creatinine 2.00 H Estimated GFR 32.6 L BUN/Creatinine Ratio 20.5 Glucose 109 Calcium 7.9 L Magnesium 2.2 Total Bilirubin 0.7 AST 57 ALT 36 Alkaline Phosphatase 76 B-Natriuretic Peptide 708.0 H Total Protein 4.7 L Albumin 2.2 L Globulin 2.5 Albumin/Globulin Ratio 0.9 L Blood Type Antibody Screen Discharge Plan Discharge Plan Discharge Problem: Pneumonia, Lung cancer, Neutropenic fever Patient Disposition: Discharge Med Rec/Prescriptions Discharge Orders: Discharge (Order); Ordered 06/04/18 Ordered By: Joseph Miller Discharge Data Primary Care Provider: Mendez Cuevas Attending Provider: Marlyn Ashley Admit Date/Time: 06/01/18 12:15 Discharges patient from system. Discharge Date/Time: 06/04/18 07:45 Quality VTE Deep Vein Thrombosis/Pulmonary Embolism Present on Admission: No
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
--- NOTE | 2018-06-04 10:20 | ONC.NAV ---
Description: Bereavement Support Activity: TYPE COPYIST accompanied pt's dtr, who had just arrived post-, to go see pt and family members in the ICU. Offered bereavement support for the family, as well as validation of pt's 's decisions made in allowing him a comfortable, peaceful through changing him to DNR/no intubation earlier this morning. More family are en route to say goodbye to pt in the ICU. ICU staff state that they will call [facility] once the family is ready. *TYPE COPYIST brought a Chemo Quilt down for the family to lay over pt's body. Family are coping well and supporting each other at bedside.
== END 2018-06-04 07:45 | disposition expired | DRG 871 ==
LOC: ED 12:00 → AC 12:16 → ICU 13:18 → AC 06-03 01:00 → ICU 06-03 18:13
PROVIDERS: Family Medicine; Internal Medicine; Admitting Provider Family Medicine; Emergency Provider Emergency Medicine; Family Provider Family Medicine; PCP Family Medicine; Visit Provider Family Medicine
DX: A41.9 Sepsis, unspecified organism (principal); J18.9 Pneumonia, unspecified organism; G93.41 Metabolic encephalopathy; J96.01 Acute respiratory failure with hypoxia; D61.810 Antineoplastic chemotherapy induced pancytopenia; C34.32 Malignant neoplasm of lower lobe, left bronchus or lung; N17.9 Acute kidney failure, unspecified; R65.20 Severe sepsis without septic shock; K12.31 Oral mucositis (ulcerative) due to antineoplastic therapy; D70.9 Neutropenia, unspecified; R50.81 Fever presenting with conditions classified elsewhere; I10 Essential (primary) hypertension; E87.6 Hypokalemia; E86.0 Dehydration; K21.9 Gastro-esophageal reflux disease without esophagitis; Z87.891 Personal history of nicotine dependence; M25.559 Pain in unspecified hip; W06.XXXA Fall from bed, initial encounter; Y92.230 Patient room in hospital as the place of occurrence of the external cause; T45.1X5A Adverse effect of antineoplastic and immunosuppressive drugs, initial encounter; I48.91 Unspecified atrial fibrillation; T17.990A Other foreign object in respiratory tract, part unspecified in causing asphyxiation, initial encounter
CPT/HCPCS: 36415; 36591; 36592; 36600; 71045; 71275; 72170; 80048; 80051; 80053; 81001; 82805; 83605; 83690; 83735; 83880; 84145; 85025; 86850; 86900; 86901; 87040; 87086; 87797; 93005; 93041; 94640; 94760; 94762; 94799; 99215; 99223; 99232; 99233; 99238; 99283; 99285; J0692; J1160; J1450; J1940; J1956; J2060; J3480; Q9967